=== PATIENT | male | born 1950 | race Caucasian/White ===

== ENCOUNTER 2023-04-13 22:35 | Inpatient (IN) | payer MEDICARE, OTHER, SELFPAY ==
[2023-04-13 17:58] VITALS: BP 168/107
[2023-04-13 18:20] LABS: % Basophils 0.3 % (0-2); % Eosinophils 0.1 % (0-6); % Immature Granulocytes 0.4 % (0-0.5); % Lymphocytes 8.5 % (20.5-51.1); % Neutrophils 81.7 % (42.2-75.2); Absolute Immature Granulocytes 0.1 10^3/uL (0-0.05); Absolute Lymphocytes 1.2 10^3/uL (1.2-3.4); Absolute Monocytes 1.3 10^3/uL (0.1-0.6); Absolute Neutrophils 11.7 10^3/uL (1.4-6.5); Hematocrit 38.1 % (39.0-52.0); Hemoglobin 13.6 g/dL (13.0-18.0); Mean Corp Hgb Conc. 35.7 g/dL (33.0-37.0); Mean Corpuscular Hgb 30.6 pg (27.0-31.0); Mean Corpuscular Volume 85.6 fL (80.0-94.0); Mean Platelet Volume 9.3 fL (7.4-10.4); Nucleated Red Blood Cells % 0 % (-); Platelet Count 253 10^3/uL (130-400); Red Blood Cell Count 4.45 10^6/uL (4.70-6.10); Red Cell Dist. Width 12.9 % (11.5-14.5); White Blood Cell Count 14.3 10^3/uL (4.8-10.8)
[2023-04-13 18:43] LABS: ALT (SGPT) 22 U/L (0-50); AST (SGOT) 30 U/L (17-59); Albumin 4.3 g/dl (3.5-5.0); Alkaline Phosphatase 32 U/L (38-126); Blood Urea Nitrogen 39 mg/dl (9-20); Calcium 9.8 mg/dl (8.4-10.2); Carbon Dioxide 25 mmol/L (22-30); Chloride 106 mmol/L (98-107); Glucose 172 mg/dl (70-99); Potassium 4.2 mmol/L (3.5-5.1); Sodium 137 mmol/L (135-145); Total Bilirubin 0.8 mg/dl (0.2-1.3); eGFR 28.89
[2023-04-13 19:01] LABS: Urine Albumin Negative (Neg - Trace); Urine Bilirubin Negative (Negative); Urine Character Clear (Clear); Urine Color Yellow; Urine Glucose 1+ (Negative); Urine Ketone Negative (Negative); Urine Leukocyte Negative (Negative); Urine Nitrite Negative (Negative); Urine Occult Blood Negative (Negative); Urine Urobilinogen Negative (Neg - 1+)
[2023-04-13 19:47] VITALS: BMI 30.1
--- NOTE | 2023-04-13 19:57 | ED.GENMED ---
History of Present Illness
General
Chief Complaint: Flank Pain
Source: patient
Exam Limitations: none
Time Seen by Provider: 04/13/23 19:39
Nursing documentation reviewed up to this point in time: agreed with
Travel History
Have you had any contact with someone who has COVID-19?: No
Do you have any symptoms of coronavirus? Fever > 100 degrees, chills, cough, shortness of breath, sore throat, loss of taste or smell, muscle aches, or headache?: No
History of Present Illness
History of Present Illness:
73-year-old male history of kidney stones followed by Dr. Grant never required surgery
Type II diabetic previously on diet control recently started on metformin presents with left flank pain with some chills last evening moderate intensity does go to the left lower abdomen, no documented fevers no vomiting,
No chest pain or shortness of breath
Took a Flomax helped his pain a bit
Past History
Past History
ED Past Medical History: NIDDM and Other (Renal stones)
ED Past Surgical History: Negative Urological
Social History
Tobacco: Non-smoker
Alcohol: None
Drug: None
Personal:
Living: with family
Review of Systems
Review of Systems
All Other Systems: Not applicable
Constitutional: Reports chills; Denies fever or fatigue
EENT: Reports no symptoms
Respiratory: Reports no symptoms
Cardiac: Reports no symptoms
ABD/GI: Reports abdominal pain and nausea
: Reports flank pain
Musculoskeletal: Reports no symptoms
Skin: Reports no symptoms
Neurological: Reports no symptoms
Endocrine: Reports no symptoms
Phy Exam
Physical Exam
Physical Exam:
Physical Exam
General: 73-year-old male nontoxic
Neck: No jaundice
Heart: s1/s2 regular rate and rhythm, no murmur. equal radial pulses.
Lungs: no acute respiratory distress. clear bilaterally
Abdomen: Soft tender in the left lower abdomen
Neuro: alert and oriented. no focal neurological deficits
Skin: no rash
Psychiatric: well kept. interactive and cooperative
Extremities: no edema.
Course
Orders/Labs/Results
Orders:
Orders
04/13/23 18:07
Complete Blood Count/With Diff Urgent
Comprehensive Metabolic Panel Urgent
04/13/23 18:13
Urinalysis Reflex To Culture Urgent
Date Specimen was Collected: 04/13/23
Time Specimen was Collected: 18:02
Urine Culture Urgent
VERONIKA Source: U
Specimen Description:
Date Specimen was Collected: 04/13/23
Time Specimen was Collected: 18:02
Comment: Add on bt Vineet Slade
04/13/23 19:53
CT Abd/pel Without Iv Or Oral Urgent
Comment:
Reason For Exam: arf stone
0.9% Sodium Chloride 1000 ml [Nss] 1,000 ml IV BOLUS
HYDROmorphone [Dilaudid] 0.5 mg IV NOW STA
Ondansetron Injectable [Zofran] 4 mg IV NOW STA
04/13/23 20:24
Add On - Microbiology Urgent
Tests Added?: urine culture
04/13/23 21:09
Blood Culture Q30M
VERONIKA Source: Blood/Venous
Specimen Description:
Blood Culture Q30M
VERONIKA Source: Blood/Venous
Specimen Description:
04/13/23 21:27
UROLOGY CONSULT Routine
Consulting Provider: Dayron Lima
Was physician already notified: Yes
04/13/23 22:22
Admit/Transfer Patient As Directed
Co-Sign Provider:
Level of Care: Inpatient admission
Assign to:: Medical/Surgical
Physician / Group: Tulio
Diagnosis: L Ureteral Stone, ANDER
Reason for Hospitalization: L Ureteral Stone, ANDER
Expected length of stay greater than two midnights?: Yes
ELOS- Estimated Length of Stay in days: 2
I certify the patient meets the requirements for IP care: Yes
04/13/23 22:23
Code Status As Directed
Resuscitation Status: Full Code
Abnormal Lab Results
04/13/23 04/13/23
18:07 18:13
WBC 14.3 H 10^3/uL
(4.8-10.8)
RBC 4.45 L 10^6/uL
(4.70-6.10)
Hct 38.1 L %
(39.0-52.0)
Abs Immat Gran (auto) 0.1 H 10^3/uL
(0-0.05)
Absolute Neuts (auto) 11.7 H 10^3/uL
(1.4-6.5)
Absolute Monos (auto) 1.3 H 10^3/uL
(0.1-0.6)
Neutrophils % 81.7 H %
(42.2-75.2)
Lymphocytes % 8.5 L %
(20.5-51.1)
BUN 39 H mg/dl
(9-20)
Creatinine 2.3 H mg/dL
(0.7-1.3)
Glucose 172 H mg/dl
(70-99)
Alkaline Phosphatase 32 L U/L
(38-126)
Urine Glucose 1+ A
(Negative)
04/13/23 18:07
04/13/23 18:07
Vital Signs
Initial and Last Documented VS:
Initial Vital Signs
Temp Pulse Resp BP Pulse Ox
98.9 F 105 16 168/107 95
04/13/23 17:58 04/13/23 17:58 04/13/23 17:58 04/13/23 17:58 04/13/23 17:58
Last Documented Vital Signs
Temp Pulse Resp BP Pulse Ox
98.9 F 92 10 137/78 98
04/13/23 17:58 04/13/23 21:58 04/13/23 21:58 04/13/23 21:58 04/13/23 21:58
MDM/Problems Addressed
Differential Diagnosis Includes:
Renal colic UTI muscle strain doubt AAA
MDM/Problems Addressed:
Flank pain
Chronic conditions affecting care:
Diabetes kidney stone
Acute Exacerbation and/or Progression of Chronic Illness:
Diabetes kidney stone
*Radiology
Radiology exam reviewed: preliminary read by ED provider
*Pulse Oximetry
Patient hypoxic: no
*Carburizing Furnace Operator Interpretation
Rate: normal
Interpretation: normal
Heart Rate: 78
Rhythm: sinus
*Critical Care Note
Total Time (30-74mins, 75-104mins- exclusive of procedures): 8
Data Reviewed
Review of Other/Old Records Reveals: Labs, Records and Radiology Studies
Source: patient
Update Note
Update Note:
Update urinalysis noted CAT scan report noted fluid has been ordered, patient require admission due to acute renal failure
ED Attending Note
-
Portions of this chart may have been created with voice recognition software.� Occasional wrong word or��sound alike� substitutions may have occurred due to the inherent limitations of voice recognition software.
Discharge Plan
Departure
Patient Disposition: Admit
Date of Disposition: 04/13/23
Time of Disposition: 20:36
Admit to: Med/Surg
Presentation/result/management discussed w/ accepting MD/DO: Hospitalist
Condition: Fair
Covid-19: Not Applicable
Discharge Problem:
Acute renal failure (ARF), Ureter colic
Interventions
Interventions:
*Risk Screen - Suicide Last Done: 04/13/23 17:58
*General Assessment Last Done: 04/13/23 17:58
*Neglect/Abuse Screening Last Done: 04/13/23 17:58
ED- Fall Risk Assessment Last Done: 04/13/23 19:48
*ED COVID-19 Vaccine History Last Done: 04/13/23 17:58
TZ-Oavofs-Oanbkdanea Assessment Last Done: 04/13/23 19:48
ED-Male Genitourinary Assessment Last Done: 04/13/23 19:48
[2023-04-13] MEDS: DILAUDID 0.5 MG IV (20:00)
[2023-04-13] MEDS: ZOFRAN 4 MG IV (20:00)
[2023-04-13] MEDS: NSS 1000 IV (20:01)
[2023-04-13 20:14] VITALS: BP 146/83
[2023-04-13 21:58] VITALS: BP 137/78
--- NOTE | 2023-04-13 22:26 | HPS.HSE ---
Family Physician
-
Family Physician: Eric Guerin
Chief Complaint
-
L Flank Pain
History of Present Illness
Patient is a 73y M with PMH significant for DM-II and nephrolithiasis who presents to ED complaining of L flank pain x 2-3 days. Patient states that he initially developed some L flank pain on Wednesday evening. The following morning his symptoms
were much more severe. He has had pain in the L flank with radiation into the L groin region. He notes that he did have shaking chills at home last PM. No dysuria, gross hematuria, etc. No N/V.
Patient had worsening pain this evening and presented to the ED for further evaluation.
Medical History
Past Medical History
Past Medical History: Reports Other
Additional Past Medical History:
DM-II
Nephrolithiasis
GERD
Past Surgical History: Reports Other
Additional Past Surgical History:
Hernia Repair
R Knee Arthroscopy
T&A
Cataracts
Social History
Tobacco: Former Smoker (Quit smoking 26y ago. Approx 30 pack years total.)
Alcohol: Occasional
Drug: None
Personal:
Living: With Family
Family History
Family History: Not pertinent
Allergies / Home Medications
Allergies reflects when Allergies were last updated in [employer].
Home Medications with original date entered in [employer]
Allergy/Medication List:
Allergies
Allergy/AdvReac Type Severity Reaction Status Date / Time
No Known Allergies Allergy Verified 10/12/21 14:43
Home Medications
tamsulosin 0.4 mg capsule (Flomax) 0.4 mg PO DAILY #10 caps 10/12/21
acetaminophen 325 mg tablet (Tylenol) 650 mg PO Q6HPRN PRN mild pain 04/13/23
aspirin 81 mg tablet,delayed release 81 mg PO QPM 04/13/23
fenofibrate nanocrystallized 145 mg tablet (Tricor) 145 mg PO HS 04/13/23
glucosamine sulf dipot chlr,msm,chond 550 mg-C 30 mg-edd 1 mg capsule (Glucosamine Chondroitin) 1 cap PO QPM 04/13/23
latanoprost 0.005 % eye drops 1 drp RIGHT EYE HS 04/13/23
metformin 500 mg tablet,extended release 24 hr 500 mg PO BID 04/13/23
rosuvastatin 10 mg tablet (Crestor) 10 mg PO QPM 04/13/23
Review of Systems
-
History Source: Patient
A 12 point ROS was completed and negative except as noted: Yes
Constitutional: Reports Chills; Denies Fever
Respiratory: Denies Cough or Trouble Breathing
Cardiac: Denies Chest Pain or Palpitations
Abdomen/GI: Denies Abdominal Pain, Nausea, Vomiting or Diarrhea
: Denies Dysuria or Frequency
Neurological: Denies Dizzy or Headache
Psych: Denies Depression or Anxiety
Physical Exam
Vital Signs
Vital Signs
Temp Pulse Resp BP Pulse Ox
98.9 F 92 10 137/78 98
04/13/23 17:58 04/13/23 21:58 04/13/23 21:58 04/13/23 21:58 04/13/23 21:58
Physical Exam
General: Other (73y M in no acute distress.)
HEENT: Moist mucous membranes
Respiratory: Clear; No Wheezes, Rales or Rhonchi
Cardiac: S1/S2 and Regular Rhythm; No Murmur
GI: Soft, Non Tender, Non Distended and Normal Bowel Sounds
Genito-urinary: Costovertebral angle tend (Mild L CVAT.)
Musculoskeletal: No Clubbing, No Cyanosis and No Edema
Neuro: AO x 3
Psych: No Anxious or Depressed
Laboratory Results
-
04/13/23 18:07
04/13/23 18:07
Laboratory Results
Total Bilirubin 0.8 mg/dl (0.2-1.3) 04/13/23 18:07
AST 30 U/L (17-59) 04/13/23 18:07
ALT 22 U/L (0-50) 04/13/23 18:07
Alkaline Phosphatase 32 U/L (38-126) L 04/13/23 18:07
Impression/Plan
-
A/P: Patient is a 73y M with PMH significant for DM-II and nephrolithiasis who presents to ED complaining of L flank pain and chills.
Left Ureterolithiasis
- Admit for further evaluation and treatment.
- Pain control, IVFs, etc.
- Strain urine and monitor for spontaneous passage.
- Urology evaluation.
- Continue usual tamsulosin.
- Follow for clinical improvement.
- Will cover with ceftriaxone for now given reported chills.
- Follow-up UA / culture data and discontinue abx if appropriate.
ANDER
- SCr = 2.3 compared to baseline of 1.3.
- Likely secondary to obstructing stone, decreased PO intake, etc.
- IVFs as noted above.
- Follow labs / lytes for improvement.
- May need intervention for stone removal if they do not spontaneously pass.
DM-II
- Stable. Hold PO medications.
- Follow glucose and cover with SSI as needed.
- Update A1C.
DVT Prophylaxis: SCDs
Code Status: Full
[2023-04-14] MEDS: STERILE WATER FOR INJECTION 10 ML IV (05:12)
[2023-04-14] MEDS: ROCEPHIN 1000 MG IV (05:12)
[2023-04-14] MEDS: NSS 1000 IV (05:13)
[2023-04-14] MEDS: DILAUDID 0.5 MG IV (05:21)
[2023-04-14 06:55] LABS: Hemoglobin 11.9 g/dL (13.0-18.0); Mean Corpuscular Hgb 30.6 pg (27.0-31.0); Mean Corpuscular Volume 87.4 fL (80.0-94.0); Platelet Count 222 10^3/uL (130-400); Red Blood Cell Count 3.89 10^6/uL (4.70-6.10); Red Cell Dist. Width 12.8 % (11.5-14.5); White Blood Cell Count 13.7 10^3/uL (4.8-10.8)
[2023-04-14 07:17] LABS: Blood Urea Nitrogen 39 mg/dl (9-20); Calcium 9.2 mg/dl (8.4-10.2); Carbon Dioxide 24 mmol/L (22-30); Chloride 105 mmol/L (98-107); Estimated Creatinine Clearance 28 ml/min; Glucose 182 mg/dl (70-99); Sodium 138 mmol/L (135-145); eGFR 27.45
[2023-04-14 07:42] VITALS: BP 119/92
[2023-04-14 07:55] VITALS: BP 119/92
[2023-04-14 07:58] LABS: Glucose - Point of Care 168 mg/dl (70-99)
[2023-04-14 08:00] VITALS: BP 130/103
[2023-04-14] MEDS: FLOMAX 0.400000000000000022 MG PO (09:09)
[2023-04-14 12:31] LABS: Glucose - Point of Care 143 mg/dl (70-99)
--- NOTE | 2023-04-14 13:33 | W.PN.URO.CBU ---
Today's Communication / Plan
-
op room afternoon if stones not pased npo hs tonight
Assessment / Plan
-
NON TOXIS WITH STONES 2 AND 4 MM CAUSING ander trial of passage of small stones on op e=schedule for aternoon bt hopefully stones will pass will render npo and dtrain urone pt conseted revoewed alt txs ansd pros cons u/l/s if still
pain tomorrow
Diagnosis
-
Date of Service: April 14, 2023
-
Patient Diagnosis:
2 and 4 mm diastaL LEFT STONE WITH YDRO AND ANDER CREATININE 1.7 TO 2.4 STILL COLIC AND NIDDM
Post Op Day:
Subjective
-
COLIC REQUIRING IV DIALAUDIOD 5AM
Objective
-
Vital Signs
Temp Pulse Resp BP Pulse Ox
98.2 F 82 20 119/92 95
04/14/23 07:42 04/14/23 07:42 04/14/23 07:42 04/14/23 07:42 04/14/23 07:42
Intake and Output
04/13/23 04/14/23 04/15/23
06:59 06:59 06:59
Output Total 400 / 400
Balance -400 / -400
Output:
Urine, Voided 400 / 400
Laboratory Results
04/14/23 05:33
04/14/23 05:33
Review of Systems
-
: Flank Pain
Physical Exam
-
General - well developed, well nourished, no acute distress
Chest - clear bilaterally
Abdomen - soft, non-tender, positive bowel sounds, no CVAT, no incisional pain or distention
Genitalia - normal
Rectal - normal
Skin - warm & dry with no rash
Neuro - AOx3, no motor deficits
Extremities - no clubbing, no cyanosis, no edema
Incision - clean, dry
Dressing - clean, dry, intact
Counseling
-
npo at hs fpr op room
Care Review
Data Reviewed
Discussed with: Hospitalist and Nursing
CT Scan: Image Pers Reviewed
--- NOTE | 2023-04-14 15:53 | PTCARENOTE ---
Patient passed x1 stone, also other fragments/sediment. Dr. Lima aware, okay to discharge from urology standpoint. Dr. Guerrero updated.
--- NOTE | 2023-04-14 16:13 | W.PN.HOSP.TC ---
Addendum entered and electronically signed by Alexei Guerrero MD 04/14/23 17:36:
[id number]
Original Note:
Today's Communication/Plan
-
CMP and CBC in 1-2 days with urology; f/u closely
F/u PCP within 1 week
repeat imaging as per urology outpatient
Assessment / Plan
Assessment / Plan
Physical Exam
General: Other (73y M in no acute distress.)
HEENT: Moist mucous membranes
Respiratory: Clear; No Wheezes, Rales or Rhonchi
Cardiac: S1/S2 and Regular Rhythm; No Murmur
GI: Soft, Non Tender, Non Distended and Normal Bowel Sounds
Genito-urinary: Costovertebral angle tend (Mild L CVAT.)
Musculoskeletal: No Clubbing, No Cyanosis and No Edema
Neuro: AO x 3
Psych: No Anxious or Depressed
A/P:� Patient is a 73y M with PMH significant for DM-II and nephrolithiasis who presents to ED complaining of L flank pain and chills.
Left Ureterolithiasis
�- Admit for further evaluation and treatment.
�- Pain control, IVFs, etc.
�- Patient passed 2 stones and debri
-Spoke to urology, OK to dc on their side with close bmp follow up - patient desires this as well
ANDER
�- SCr = 2.3 compared to baseline of 1.3.
�- Likely secondary to obstructing stone,
-s/p IV fluids
-Patient passed stone
-F/u BMP in 1-2 days with Urology to assess improvement - anticipate resolution now that stone passedd
Leukocytosis
-2/2 to stress with stone; no evidence of infection; UA negative, afebrile
-cbc in 1-2 days to assess for trending down
DM-II
�- Stable.� Hold PO medications.
�- Follow glucose and cover with SSI as needed.
�-Hold metformin with ANDER; can restart outpatient
DVT Prophylaxis:� SCDs
Code Status:� Full
More than 30 minutes spent in discharge including
Final examination of the patient
Summarizing hospital stay
Instructions for continuing care to all relevant caregivers
Preparation of discharge records, prescriptions, and referral forms
Total time spent (35 in minutes):
Anticipated Discharge: Today
Subjective/Interval History
-
Date of Service: April 14, 2023
passed two stones and some debri this afternoon
Objective Data
-
Labs:
Laboratory Results
04/14/23
05:33
WBC 13.7 H
Hgb 11.9 L
Hct 34.0 L
Plt Count 222
Sodium 138
Potassium 4.0
Chloride 105
Carbon Dioxide 24
BUN 39 H
Creatinine 2.4 H
Glucose 182 H
Calcium 9.2
Vital Signs:
Vital Signs
Temp Pulse Resp BP Pulse Ox
98.2 F 82 20 130/103 95
04/14/23 07:42 04/14/23 07:42 04/14/23 07:42 04/14/23 08:00 04/14/23 07:42
I&O
04/13/23 04/14/23 04/15/23
06:59 06:59 06:59
Output Total 400 / 400
Balance -400 / -400
Review of Systems
-
History Source: Patient
All other systems: Not reviewed unless documented
Data Reviewed
-
CT Scan: Image personally visualized and interpreted and Report Reviewed by me
Labs: Labs Reviewed by me
--- NOTE | 2023-04-14 16:20 | W.DS.TRANS ---
DC Summary - Ed Teacher
-
Discharge Instructions:
Discharge Diagnosis/Procedures
Left Ureterolithiasis
ANDER
Diet Low Cholesterol,Diabetic, Carb Controlled
Blood Work CBC and CMP in 1-2 days with Urology to monitor
Scr
Others Tests reimage as outpatient
Instructions:
Stand-Alone Forms:
Changes to Home Medications: Yes
Discharge Medications:
DC Medications w/original date entered in [employer]
tamsulosin 0.4 mg capsule (Flomax) 0.4 mg PO DAILY #10 caps 10/12/21
acetaminophen 325 mg tablet (Tylenol) 650 mg PO Q6HPRN PRN mild pain 04/13/23
aspirin 81 mg tablet,delayed release 81 mg PO QPM Blood Clot Prevention/Tx 04/13/23
fenofibrate nanocrystallized 145 mg tablet (Tricor) 145 mg PO HS High Cholesterol 04/13/23
glucosamine sulf dipot chlr,msm,chond 550 mg-C 30 mg-edd 1 mg capsule (Glucosamine Chondroitin) 1 cap PO QPM Supplement 04/13/23
latanoprost 0.005 % eye drops 1 drp RIGHT EYE HS Eye Condition 04/13/23
metformin 500 mg tablet,extended release 24 hr 500 mg PO BID Diabetes 04/13/23
rosuvastatin 10 mg tablet (Crestor) 10 mg PO QPM High Cholesterol 04/13/23
Home Medication Changes
hold metformin
Pending Results: No
[2023-04-14] MEDS: NSS IV (16:21)
--- NOTE | 2023-04-14 17:33 | CM ---
CM reviewed medical records. Plan for discharge to home. No needs noted.
== END 2023-04-14 16:45 | disposition home or self-care (01) | DRG 683 ==
LOC: ED 22:35
PROVIDERS: Emergency Medicine; Specialist; ADMITTING PHYSICIAN Hospitalist; ATTENDING PHYSICIAN Internal Medicine; EMERGENCY PHYSICIAN Emergency Medicine; FAMILY PHYSICIAN Family Medicine
DX: N17.9 Acute kidney failure, unspecified (principal); N20.2 Calculus of kidney with calculus of ureter; Z87.891 Personal history of nicotine dependence; E11.36 Type 2 diabetes mellitus with diabetic cataract
CPT/HCPCS: 74176; 80048; 80053; 81003; 82365; 82962; 85025; 85027; 87040; 87086; 96361; 96374; 96375; 99285

== ENCOUNTER → 2023-04-16 07:18 | Outpatient (REF) | payer MEDICARE, OTHER, SELFPAY ==
[2023-04-16 10:13] LABS: Blood Urea Nitrogen 40 mg/dl (9-20); Calcium 9.7 mg/dl (8.4-10.2); Carbon Dioxide 27 mmol/L (22-30); Chloride 102 mmol/L (98-107); Glucose 128 mg/dl (70-99); Potassium 3.9 mmol/L (3.5-5.1); Sodium 141 mmol/L (135-145); eGFR 48.25
== END ==
LOC: HWLAB 07:18
PROVIDERS: ATTENDING PHYSICIAN Surgery; FAMILY PHYSICIAN Family Medicine
DX: N20.0 Calculus of kidney (principal)
CPT/HCPCS: 36415; 80048

== ENCOUNTER → 2023-06-02 07:35 | Outpatient (REF) | payer MEDICARE, OTHER, SELFPAY ==
[2023-06-02 09:27] LABS: % Basophils 0.7 % (0-2); % Eosinophils 2.2 % (0-6); % Immature Granulocytes 0.2 % (0-0.5); % Lymphocytes 38.8 % (20.5-51.1); % Monocytes 8.6 % (1.7-9.3); % Neutrophils 49.5 % (42.2-75.2); Absolute Eosinophils 0.1 10^3/uL (0-0.7); Absolute Lymphocytes 2.3 10^3/uL (1.2-3.4); Absolute Monocytes 0.5 10^3/uL (0.1-0.6); Hematocrit 37.1 % (39.0-52.0); Hemoglobin 12.6 g/dL (13.0-18.0); Mean Corpuscular Hgb 30.1 pg (27.0-31.0); Mean Corpuscular Volume 88.8 fL (80.0-94.0); Mean Platelet Volume 9.6 fL (7.4-10.4); Nucleated Red Blood Cells % 0 % (-); Platelet Count 285 10^3/uL (130-400); Red Blood Cell Count 4.18 10^6/uL (4.70-6.10); Red Cell Dist. Width 12.9 % (11.5-14.5)
[2023-06-02 09:55] LABS: Blood Urea Nitrogen 30 mg/dl (9-20); Calcium 9.6 mg/dl (8.4-10.2); Carbon Dioxide 26 mmol/L (22-30); Chloride 103 mmol/L (98-107); Glucose 111 mg/dl (70-99); Potassium 4.1 mmol/L (3.5-5.1); Sodium 141 mmol/L (135-145); eGFR > 60.00
== END ==
LOC: HWLAB 07:35
PROVIDERS: ATTENDING PHYSICIAN Ophthalmology Retina Specialist; FAMILY PHYSICIAN Family Medicine
DX: H35.341 Macular cyst, hole, or pseudohole, right eye (principal)
CPT/HCPCS: 36415; 80048; 85025

== ENCOUNTER 2023-10-06 07:46 | Emergency (ER) | payer MEDICARE, OTHER, SELFPAY ==
[2023-10-06 07:52] VITALS: BP 195/98
[2023-10-06] MEDS: DILAUDID 0.5 MG IV (08:26)
[2023-10-06] MEDS: ZOFRAN 4 MG IV (08:26)
[2023-10-06 08:28] VITALS: BP 148/97
[2023-10-06 08:31] LABS: % Basophils 0.3 % (0-2); % Eosinophils 0.7 % (0-6); % Immature Granulocytes 0.3 % (0-0.5); % Monocytes 5.5 % (1.7-9.3); % Neutrophils 75.2 % (42.2-75.2); Absolute Eosinophils 0.1 10^3/uL (0-0.7); Absolute Lymphocytes 1.6 10^3/uL (1.2-3.4); Absolute Monocytes 0.5 10^3/uL (0.1-0.6); Absolute Neutrophils 6.8 10^3/uL (1.4-6.5); Hematocrit 38.3 % (39.0-52.0); Hemoglobin 13.1 g/dL (13.0-18.0); Mean Corp Hgb Conc. 34.2 g/dL (33.0-37.0); Mean Corpuscular Hgb 30.3 pg (27.0-31.0); Mean Corpuscular Volume 88.7 fL (80.0-94.0); Mean Platelet Volume 9.8 fL (7.4-10.4); Nucleated Red Blood Cells % 0 % (-); Platelet Count 240 10^3/uL (130-400); Red Blood Cell Count 4.32 10^6/uL (4.70-6.10); Red Cell Dist. Width 12.6 % (11.5-14.5); White Blood Cell Count 9.1 10^3/uL (4.8-10.8)
[2023-10-06] MEDS: NSS 500 IV (08:31)
--- NOTE | 2023-10-06 08:37 | ED.GENMED ---
History of Present Illness
General
Chief Complaint: Abdominal Symptoms
Source: patient and spouse
Exam Limitations: none
Time Seen by Provider: 10/06/23 08:06
Nursing documentation reviewed up to this point in time: agreed with
History of Present Illness
History of Present Illness:
Patient presents to ED secondary to sudden onset of abdominal pain, which woke the patient up from sleep this morning around 4:30 AM. Patient initially attributed his pain to hunger and proceeded to have bananas and shepherds pie, with worsening
symptoms, preceded by multiple vomiting episodes. Patient also reports small bowel movement afterwards, which partially alleviated symptoms. Since then, pain has been consistent with mild abdominal distention, as well as nausea sensation.
Abdominal pain described as crampy, diffuse, without alleviating or exacerbating factors. Denies previous history of similar symptoms. Patient had same dinner as his consisting of pork and was without any symptoms when he went to sleep
initially. Patient has had history of kidney stones, but states that his symptoms are completely different. Denies previous history of abdominal surgery. Patient has received multiple normal colonoscopy, including 2 years ago. Denies recent
change in medications or diet. Denies recent travel. Denies sick contact.
Past History
Past History
ED Past Medical History: NIDDM and Other (Renal stones)
ED Past Surgical History: Negative Urological
Social History
Tobacco: Non-smoker
Alcohol: None
Drug: None
Personal:
Living: with family
Review of Systems
Review of Systems
Allergies reviewed?: Yes
Constitutional: Reports no symptoms
EENT: Reports no symptoms
Respiratory: Reports no symptoms
Cardiac: Reports no symptoms
ABD/GI: Reports abdominal pain, nausea, vomiting and other (Abdominal distention); Denies diarrhea
: Reports no symptoms
Musculoskeletal: Reports no symptoms
Skin: Reports no symptoms
Neurological: Reports no symptoms
Phy Exam
Physical Exam
Physical Exam:
Physical Exam
General: mild painful distress, not acutely ill. afebrile
Head: nc/at. eomi
Neck: supple. no meningeal signs. normal posterior pharynx
Heart: s1/s2 regular rate and rhythm, no murmur. equal radial pulses.
Lungs: no acute respiratory distress. clear bilaterally
Abdomen: normal bowel sounds. mild diffuse tenderness with mild distention. no guarding/rebound.
Neuro: alert and oriented. no focal neurological deficits
Skin: no rash
Psychiatric: well kept. interactive and cooperative
Extremities: no edema. no calf tenderness.
Course
Orders/Labs/Results
Orders:
Orders
10/06/23 08:12
HYDROmorphone [Dilaudid] 0.5 mg IV NOW STA
Ondansetron Injectable [Zofran] 4 mg IV NOW STA
10/06/23 08:13
0.9% Sodium Chloride 500 ml [Nss] 500 ml IV BOLUS
CR Obstruct Series W/pa Chest Urgent
Comment:
Reason For Exam: abdominal pain w distention
US Abdomen Complete/Upper Urgent
Comment:
Reason For Exam: upper abdominal pain
10/06/23 08:16
Complete Blood Count/With Diff Urgent
Comprehensive Metabolic Panel Urgent
Lipase Urgent
10/06/23 08:36
Lactate Level [Lactic Acid] Urgent
10/06/23 10:20
Urinalysis Reflex To Culture Urgent
Date Specimen was Collected: 10/06/23
Time Specimen was Collected: 10:19
Abnormal Lab Results
10/06/23
08:16
RBC 4.32 L 10^6/uL
(4.70-6.10)
Hct 38.3 L %
(39.0-52.0)
Absolute Neuts (auto) 6.8 H 10^3/uL
(1.4-6.5)
Lymphocytes % 18.0 L %
(20.5-51.1)
BUN 33 H mg/dl
(9-20)
Glucose 161 H mg/dl
(70-99)
AST 60 H U/L
(17-59)
10/06/23 08:16
10/06/23 08:16
Vital Signs
Initial and Last Documented VS:
Initial Vital Signs
Temp Pulse Resp BP Pulse Ox
98.0 F 60 16 195/98 98
10/06/23 07:52 10/06/23 07:52 10/06/23 07:52 10/06/23 07:52 10/06/23 07:52
Last Documented Vital Signs
Temp Pulse Resp BP Pulse Ox
98.0 F 61 16 128/73 96
10/06/23 07:52 10/06/23 11:15 10/06/23 07:52 10/06/23 11:00 10/06/23 11:15
MDM/Problems Addressed
MDM/Problems Addressed:
Patient reports complete resolution of symptoms after treatment. Repeat abdominal exam: Soft and nontender. Otherwise patient remains afebrile, hemodynamically stable, and nontoxic-appearing.
Patient with an unremarkable workup, although ultrasound abdomen does show gallbladder sludge with gallstones, without any evidence of cholecystitis. As such, patient will be advised to start taking PPI along with low-fat diet, as well as follow-up
with his GI physician. Advised to return to ED with worsening symptoms, i.e. fever/worsening pain/vomiting. Patient expressed understanding at time of discharge, to the care of of his .
*Critical Care Note
Total Time (30-74mins, 75-104mins- exclusive of procedures): Not Applicable
ED Attending Note
-
Portions of this chart may have been created with voice recognition software.� Occasional wrong word or��sound alike� substitutions may have occurred due to the inherent limitations of voice recognition software.
Discharge Plan
Departure
Patient Disposition: Home (Routine Discharge)
Date of Disposition: 10/06/23
Time of Disposition: 11:30
Patient with high blood pressure during this ER visit?: Yes
Condition: Good
Discharge Problem:
Abdominal pain
Instructions: Daniels Diet, Low-fat diet, Abdominal Pain
Prescriptions:
No Action
tamsulosin [Flomax] 0.4 mg capsule
0.4 mg PO DAILY Qty: 10 0RF
latanoprost 0.005 % Drops
1 drp RIGHT EYE HS
acetaminophen [Tylenol] 325 mg Tablet
650 mg PO Q6HPRN PRN (Reason: mild pain)
aspirin 81 mg Tablet,Delayed Release (Dr/Ec)
81 mg PO QPM
metformin 500 mg Tablet Extended Release 24 Hr
500 mg PO BID
rosuvastatin [Crestor] 10 mg Tablet
10 mg PO QPM
fenofibrate nanocrystallized [Tricor] 145 mg Tablet
145 mg PO HS
Glucosamine Chondroitin 550-30-1 mg Capsule
1 cap PO QPM
Referrals:
Eric Guerin MD [Family Provider] -
Activity Restrictions/Additional Instructions:
As discussed, please follow-up with your primary care physician and/or GI physician for further evaluation and treatment. Please return to ED with worsening symptoms, i.e. fever/worsening pain/vomiting.
Interventions
Interventions:
*Nursing Disposition Last Done: 10/06/23 12:07
Discharge Date and Time
Discharge Date/Time: 10/06/23 12:08
Print Language: GRENADIAN
[2023-10-06 08:54] LABS: ALT (SGPT) 28 U/L (0-50); AST (SGOT) 60 U/L (17-59); Albumin 4.5 g/dl (3.5-5.0); Alkaline Phosphatase 69 U/L (38-126); Blood Urea Nitrogen 33 mg/dl (9-20); Calcium 9.9 mg/dl (8.4-10.2); Carbon Dioxide 24 mmol/L (22-30); Chloride 107 mmol/L (98-107); Glucose 161 mg/dl (70-99); Lipase 280 U/L (23-300); Potassium 4.2 mmol/L (3.5-5.1); Sodium 141 mmol/L (135-145); Total Bilirubin 0.6 mg/dl (0.2-1.3); eGFR 57.29
[2023-10-06 09:00] VITALS: BP 159/85
[2023-10-06 09:43] LABS: Lactic Acid 1.7 mmol/L (0.7-2.0)
[2023-10-06 10:51] LABS: Urine Albumin Negative (Neg - Trace); Urine Bilirubin Negative (Negative); Urine Character Clear (Clear); Urine Color Yellow; Urine Glucose Negative (Negative); Urine Ketone Negative (Negative); Urine Leukocyte Negative (Negative); Urine Nitrite Negative (Negative); Urine Occult Blood Negative (Negative); Urine Specific Gravity 1.025 (<1.030); Urine Urobilinogen Negative (Neg - 1+)
[2023-10-06 11:00] VITALS: BP 128/73
== END 2023-10-06 12:08 | disposition home or self-care (01) ==
LOC: EMR 07:46
PROVIDERS: EMERGENCY PHYSICIAN Emergency Medicine; FAMILY PHYSICIAN Family Medicine
DX: R10.9 Unspecified abdominal pain (principal); R11.2 Nausea with vomiting, unspecified; E11.9 Type 2 diabetes mellitus without complications; Z87.442 Personal history of urinary calculi
CPT/HCPCS: 99284; 96374; 96375; 96361; 74022; 76700; 80053; 81003; 83605; 83690; 85025

== ENCOUNTER → 2023-10-22 13:00 | Outpatient (REF) | payer MEDICARE, OTHER, SELFPAY | LOC: HWRAD 13:00 | PROVIDERS: ATTENDING PHYSICIAN Surgery; FAMILY PHYSICIAN Family Medicine | DX: N20.2 Calculus of kidney with calculus of ureter (principal) | CPT/HCPCS: 74018 ==

== ENCOUNTER 2023-11-06 06:32 | Inpatient (IN) | payer MEDICARE, OTHER, SELFPAY ==
[2023-11-06] VITALS (23 sets, daily range): BP systolic 108–182; BP diastolic 56–103; BMI 32.3
[2023-11-06 00:28] LABS: % Basophils 0.7 % (0-2); % Eosinophils 2.6 % (0-6); % Immature Granulocytes 1.1 % (0-0.5); % Lymphocytes 40.8 % (20.5-51.1); % Monocytes 9.5 % (1.7-9.3); % Neutrophils 45.3 % (42.2-75.2); Absolute Basophils 0.1 10^3/uL (0-0.2); Absolute Eosinophils 0.2 10^3/uL (0-0.7); Absolute Immature Granulocytes 0.1 10^3/uL (0-0.05); Absolute Lymphocytes 3.4 10^3/uL (1.2-3.4); Absolute Monocytes 0.8 10^3/uL (0.1-0.6); Absolute Neutrophils 3.7 10^3/uL (1.4-6.5); Hematocrit 37.7 % (39.0-52.0); Hemoglobin 13.2 g/dL (13.0-18.0); Mean Corpuscular Hgb 31.2 pg (27.0-31.0); Mean Corpuscular Volume 89.1 fL (80.0-94.0); Mean Platelet Volume 9.3 fL (7.4-10.4); Nucleated Red Blood Cells % 0 % (-); Platelet Count 250 10^3/uL (130-400); Red Blood Cell Count 4.23 10^6/uL (4.70-6.10); Red Cell Dist. Width 12.7 % (11.5-14.5); White Blood Cell Count 8.2 10^3/uL (4.8-10.8)
[2023-11-06 00:38] LABS: ALT (SGPT) 25 U/L (0-50); AST (SGOT) 36 U/L (17-59); Albumin 4.6 g/dl (3.5-5.0); Alkaline Phosphatase 65 U/L (38-126); Blood Urea Nitrogen 35 mg/dl (9-20); Calcium 10.5 mg/dl (8.4-10.2); Carbon Dioxide 28 mmol/L (22-30); Chloride 104 mmol/L (98-107); Glucose 120 mg/dl (70-99); Lipase 373 U/L (23-300); Potassium 4.6 mmol/L (3.5-5.1); Sodium 142 mmol/L (135-145); Total Bilirubin 0.3 mg/dl (0.2-1.3); Total Protein 7.1 g/dl (6.3-8.2); eGFR 52.41
[2023-11-06] MEDS: ZOFRAN 4 MG IV (02:36)
[2023-11-06] MEDS: DILAUDID 0.5 MG IV ×3 (02:37→09:37)
[2023-11-06] MEDS: NSS 1000 IV ×3 (02:39→17:01)
--- NOTE | 2023-11-06 02:42 | ED.GENMED ---
History of Present Illness
General
Chief Complaint: Abdominal Pain
Source: patient, previous radiology exam (CT abdomen pelvis March 2023, abdominal ultrasound October 06, 2023. KUB film October 22, 2023.) and previous hospital records (ED visit for very similar abdominal pain October 06, 2023.)
Exam Limitations: none
Time Seen by Provider: 11/06/23 02:25
Nursing documentation reviewed up to this point in time: agreed with
History of Present Illness
History of Present Illness:
This is a 73-year-old gentleman who presents to the ED with complaints of somewhat abrupt onset of generalized epigastric to mid abdominal pain that began around 8:30 PM tonight, shortly after consuming nuts. Pain has been persistent, moderate to
severe nature, nonradiating. No aggravating or relieving factors. He admits to moderate abdominal distention, feeling bloated initially which has improved. No nausea nor vomiting, no diarrhea or constipation. No fever nor chills. No chest pain
nor back pain. No flank pain. No dysuria and urgency and or hematuria.
He admits to very similar pain that woke him from sleep 1 month ago and was evaluated in this ED on that day October 06, 2023. Obstruction series was unremarkable. Labs were unremarkable. Abdominal ultrasound showed gallbladder sludge but no
evidence of cholecystitis. He was pain-free after an IV dose of Dilaudid and discharged home and has been pain-free and comfortable until tonight.
He has history of kidney stones with previous hospitalization March of this year while passing a left ureteric stone accompanied with acute kidney injury. He had no recurrent renal colic since then and underwent an outpatient abdominal x-ray
October 21 for routine follow-up for urology which showed questionable small stones overlying bilateral renal shadows as well as calcified gallstones.
Past History
Past History
ED Past Medical History: Hypercholesterolemia, NIDDM and Other (Renal stones)
ED Past Surgical History: Orthopedic, Tonsilectomy and Other (Hernia repair 1969); Negative Urological
Social History
Tobacco: Non-smoker
Alcohol: None
Drug: None
Personal:
Living: with family
Employment: Retired
Family History
Family History: Other (Noncontributory)
Phy Exam
Physical Exam
Physical Exam:
GENERAL: 73-year-old gentleman appears his stated age, awake and alert, appears in moderate distress related to pain. is accompanying.
EYE: anicteric
NECK: Supple, nontender, no meningismus, no significant adenopathy.
ENT: oral mucosa is moist. No rhinorrhea.
CARDIAC: Regular rate and rhythm. no murmur.
LUNGS: Clear breath sounds bilaterally, no acute respiratory distress, no wheezes/rales/rhonchi
ABDOMEN: Soft, nondistended, mild to moderate tenderness epigastric region as well as mild tenderness periumbilical, no r/g, no cvat. normoactive BS.
NEUROLOGICAL: Alert and oriented x3, no focal neuro deficits.
SKIN: Warm and dry, normal color, skin intact. No rash.
MUSCULOSKELETAL: No C/C/E. peripheral pulses are full and equal b/l. No palpable tenderness.
PSYCH: Normal and appropriate interaction.
Course
Orders/Labs/Results
Orders:
Orders
11/06/23 00:09
Complete Blood Count/With Diff Urgent
Comprehensive Metabolic Panel Urgent
Lipase Urgent
11/06/23 02:30
0.9% Sodium Chloride 1000 ml [Nss] 1,000 ml IV BOLUS
HYDROmorphone [Dilaudid] 0.5 mg IV NOW STA
Ondansetron Injectable [Zofran] 4 mg IV NOW STA
11/06/23 02:37
Electrocardiogram (*1) Urgent
Reason for Study: Abdominal Pain
EKG- Treatment ONCE
11/06/23 02:43
Lactic Acid Urgent
11/06/23 02:54
CT Abd/pelvis W Iv Cont Urgent
Comment:
Reason For Exam: severe gen upper to mid abd pain, lipase 373
11/06/23 03:20
HYDROmorphone [Dilaudid] 0.5 mg IV NOW STA
11/06/23 05:53
Piperacillin/Tazo 3.375 Gram [Zosyn] 3.375 gram in 50 ml IV NOW
Abnormal Lab Results
11/06/23
00:09
RBC 4.23 L 10^6/uL
(4.70-6.10)
Hct 37.7 L %
(39.0-52.0)
MCH 31.2 H pg
(27.0-31.0)
Abs Immat Gran (auto) 0.1 H 10^3/uL
(0-0.05)
Absolute Monos (auto) 0.8 H 10^3/uL
(0.1-0.6)
Immature Gran % 1.1 H %
(0-0.5)
Monocytes % 9.5 H %
(1.7-9.3)
BUN 35 H mg/dl
(9-20)
Creatinine 1.4 H mg/dL
(0.7-1.3)
Glucose 120 H mg/dl
(70-99)
Calcium 10.5 H mg/dl
(8.4-10.2)
Lipase 373 H U/L
(23-300)
11/06/23 00:09
11/06/23 00:09
Vital Signs
Initial and Last Documented VS:
Initial Vital Signs
Temp Pulse Resp BP Pulse Ox
97.7 F 57 16 182/100 99
11/06/23 00:06 11/06/23 00:06 11/06/23 00:06 11/06/23 00:06 11/06/23 00:06
Last Documented Vital Signs
Temp Pulse Resp BP Pulse Ox
98.1 F 67 18 137/81 99
11/06/23 04:02 11/06/23 05:45 11/06/23 05:45 11/06/23 05:08 11/06/23 00:06
MDM/Problems Addressed
Differential Diagnosis Includes:
Concern for acute biliary colic/cholecystitis, pancreatitis, small bowel obstruction, ischemic bowel, ACS is much less likely. Current symptoms are not consistent with renal colic.
Will medicate for pain, nausea initiate IV fluids.
Labs thus far remarkable only for mildly elevated lipase of 373. Mildly elevated creatinine of 1.4�baseline of 1.2-1.3.
BUN of 35, near patient's baseline.
Will check lactic acid and plan for CT abdomen pelvis with IV contrast after IV fluid hydration.
Chronic conditions affecting care: DM and Other (Known gallstones)
*Radiology
Radiology exam reviewed: radiology read reviewed
*Pulse Oximetry
Patient hypoxic: no
*EKG
Interpreted by ED Provider?: Yes
Comparison EKG: no changes (Unchanged from previous March 2013)
Rate: normal
Rhythm: sinus
[place]: normal axis
Interval: normal interval
QRS Pattern: low voltage
Ischemia: no ischemia
*Flooring Grader Interpretation
Rate: normal
Interpretation: normal
Rhythm: sinus
*Critical Care Note
Total Time (30-74mins, 75-104mins- exclusive of procedures): Not Applicable
Update Note
Update Note:
Patient is much more comfortable after 2 doses of IV Dilaudid but continues with mild to moderate generalized upper abdominal pain primarily epigastric mildly right upper quadrant.
CAT scan shows a calcified gallstone wedged in the neck of a distended gallbladder, suspicious for cholecystitis. Polycystic kidneys without obstructing stone. Normal appendix. No bowel obstruction or diverticulitis.
Concern for acute cholecystitis. With mildly elevated lipase, concern for gallstone pancreatitis.
Will initiate IV antibiotics, continue n.p.o. status, admit to hospitalist service, consider general surgery consult.
ED Attending Note
-
Portions of this chart may have been created with voice recognition software.� Occasional wrong word or��sound alike� substitutions may have occurred due to the inherent limitations of voice recognition software.
Discharge Plan
Departure
Patient Disposition: Admit
Date of Disposition: 11/06/23
Time of Disposition: 05:58
Admit to: Med/Surg
Admit to doctor: Duncan
Presentation/result/management discussed w/ accepting MD/DO: Hospitalist
Discharge Problem:
Gall stone pancreatitis, Acute calculous cholecystitis
Prescriptions:
No Action
tamsulosin [Flomax] 0.4 mg capsule
0.4 mg PO DAILY Qty: 10 0RF
latanoprost 0.005 % Drops
1 drp RIGHT EYE HS
acetaminophen [Tylenol] 325 mg Tablet
650 mg PO Q6HPRN PRN (Reason: mild pain)
aspirin 81 mg Tablet,Delayed Release (Dr/Ec)
81 mg PO QPM
metformin 500 mg Tablet Extended Release 24 Hr
500 mg PO BID
rosuvastatin [Crestor] 10 mg Tablet
10 mg PO QPM
fenofibrate nanocrystallized [Tricor] 145 mg Tablet
145 mg PO HS
Glucosamine Chondroitin 550-30-1 mg Capsule
1 cap PO QPM
Referrals:
Eric Guerin MD [Family Provider] -
Interventions
Interventions:
*Risk Screen - Suicide Last Done: 11/06/23 00:06
*General Assessment Last Done: 11/06/23 01:46
*Neglect/Abuse Screening Last Done: 11/06/23 00:06
*ED COVID-19 Vaccine History Last Done: 11/06/23 01:49
LE-Urgtir-Yluvmsowpd Assessment Last Done: 11/06/23 01:45
Discharge Date and Time
Print Language: PERSIAN
[2023-11-06 03:12] LABS: Lactic Acid 1.6 mmol/L (0.7-2.0)
[2023-11-06] MEDS: ZOSYN 50 IV ×2 (05:59→17:01)
--- NOTE | 2023-11-06 06:28 | HPS.HSE ---
Family Physician
-
Family Physician: Eric Guerin
Chief Complaint
-
Abd Pain
History of Present Illness
Patient is a 73y M with PMH significant for DM-II who presents to ED complaining of abdominal pain. Patient states that he developed mid abdominal pain around 9:30 this evening. His pain persisted and increased in intensity throughout the
evening. He ultimately presented to the ED for further evaluation. Patient denies any radiation of the pain to the chest, back or lower abdomen. He denies any N/V/D. No fevers / chills.
Patient reports similar episode earlier in the month. He was seen here in the ED and his symptoms resolved after IV pain medication. Work-up at that time proved essentially unremarkable ad patient was discharged to home.
He has not had interim / recurrent symptoms until this evening.
Medical History
Past Medical History
Past Medical History: Reports Other
Additional Past Medical History:
DM-II
CKD III
Nephrolithiasis
GERD
Glaucoma
Past Surgical History: Reports Other
Additional Past Surgical History:
Hernia Repair
R Knee Arthroscopy
T&A
Cataracts
Eye Surgeries
Social History
Tobacco: Former Smoker (Quit smoking 26y ago. Approx 30 pack years total.)
Alcohol: Occasional
Drug: None
Personal:
Living: With Family
Family History
Family History: Other (Mother: Colon Cancer)
Allergies / Home Medications
Allergies reflects when Allergies were last updated in [employer].
Home Medications with original date entered in [facility]
Allergy/Medication List:
Allergies
Allergy/AdvReac Type Severity Reaction Status Date / Time
No Known Allergies Allergy Verified 11/06/23 00:06
Home Medications
aspirin 81 mg tablet,delayed release 81 mg PO QPM Blood Clot Prevention/Tx 04/13/23
fenofibrate nanocrystallized 145 mg tablet (Tricor) 145 mg PO HS High Cholesterol 04/13/23
glucosamine sulf dipot chlr,msm,chond 550 mg-C 30 mg-edd 1 mg capsule (Glucosamine Chondroitin) 1 cap PO QPM Supplement 04/13/23
latanoprost 0.005 % eye drops 1 drp RIGHT EYE HS Eye Condition 04/13/23
metformin 500 mg tablet,extended release 24 hr 500 mg PO BID Diabetes 04/13/23
rosuvastatin 10 mg tablet (Crestor) 10 mg PO QPM High Cholesterol 04/13/23
Review of Systems
-
History Source: Patient
A 12 point ROS was completed and negative except as noted: Yes
Constitutional: Denies Fever or Chills
EENT: Denies Sore Throat
Respiratory: Denies Cough or Trouble Breathing
Cardiac: Denies Chest Pain or Palpitations
Abdomen/GI: Reports Abdominal Pain; Denies Nausea, Vomiting, Diarrhea, Bloody Stools or Black Stools
: Denies Dysuria, Frequency or Flank Pain
Musculoskeletal: Denies Joint Pain or Edema
Neurological: Denies Dizzy or Headache
Psych: Denies Depression or Anxiety
Physical Exam
Vital Signs
Vital Signs
Temp Pulse Resp BP Pulse Ox
98.3 F 71 28 151/82 99
11/06/23 06:00 11/06/23 06:00 11/06/23 06:00 11/06/23 06:00 11/06/23 00:06
Physical Exam
General: Other (73y M in no acute distress)
HEENT: Moist mucous membranes and PERRLA
Respiratory: Other (Few bibasilar rales. No wheeze / rhonchi.)
Cardiac: S1/S2 and Regular Rhythm; No Murmur
GI: Soft, Non Distended, Normal Bowel Sounds and Other (Mild epogastric tenderness at present. No rebound / guarding. Pos BS.)
Musculoskeletal: No Clubbing, No Cyanosis and No Edema
Neuro: AO x 3
Laboratory Results
-
11/06/23 00:09
11/06/23 00:09
Laboratory Results
Lactic Acid 1.6 mmol/L (0.7-2.0) 11/06/23 02:43
Total Bilirubin 0.3 mg/dl (0.2-1.3) 11/06/23 00:09
AST 36 U/L (17-59) 11/06/23 00:09
ALT 25 U/L (0-50) 11/06/23 00:09
Alkaline Phosphatase 65 U/L (38-126) 11/06/23 00:09
Lipase 373 U/L (23-300) H 11/06/23 00:09
Impression/Plan
-
A/P: Patient is a 73y M with PMH significant for DM-II who presents to ED complaining of abdominal pain.
Acute Calculous Cholecystitis
- Admit for further evaluation and treatment.
- Patient with acute onset of pain and CT showing stone in the GB neck with gallbladder distention and wall thickening.
- Afebrile and non-toxic appearing.
- IV abx with Zosyn for now.
- NPO, IVFs and supportive care with pain control / antiemetics, etc.
- Surgery evaluation for possible cholecystectomy.
- Follow for any new / worsening symptoms.
DM-II
- Stable. Hold PO medications acutely.
- Follow glucose and cover with SSI as needed.
- Update A1C.
CKD III
- Stable. Renal function is at / near known baseline.
- Follow for any changes.
Glaucoma
- Stable. Continue latanoprost.
DVT Prophylaxis: SCDs
Code Status: Full
--- NOTE | 2023-11-06 09:44 | W.PN.HOSP.TC ---
Today's Communication/Plan
-
Plan for laparoscopic cholecystectomy
Continue IV Zosyn in the interim
As needed analgesia and antiemetics
Assessment / Plan
Assessment / Plan
#Acute calculus cholecystitis
-CT A/P yesterday showed cholelithiasis within the gallbladder neck, with distention and wall thickening
-Remains afebrile and nontoxic-appearing, no jaundice or signs of biliary obstruction; minimal pain as of now
-Currently on IV Zosyn empirically; n.p.o. with supportive IVF pending surgical procedure
-Currently on supportive care with opioid analgesia as needed and antiemetics as needed
-Will continue IV antibiotics pending laparoscopic cholecystectomy with surgical team today
#Type 2 diabetes mellitus
-Last A1c was 7%, Home meds include metformin twice daily
-Oral meds held on admission, was transitioned to sliding scale insulin with Accu-Chek
-Blood glucose goal 160-200
#CKD stage III
-Unclear cause, may be related to diabetes
-No association with anemia, acidemia, bone mineral disease
-Baseline creatinine is near 1.2-1.4, currently at baseline
#Glaucoma
-Stable on home latanoprost
DVT Prophylaxis: SCDs
Diet: N.p.o. pending surgery
Code Status: Full
Anticipated Discharge: Within 24 hours
Subjective/Interval History
-
Date of Service: November 06, 2023
Seen and examined at the bedside in the ED. No acute events reported since admission. He is frustrated that he is still in the emergency department, states that he feels 'neglected' as he is still waiting for his pain medications.
He denies any fevers or chills, chest pain, shortness of breath, current nausea/vomiting/diarrhea, urinary issues, abnormal bleeding or bruising, weakness or paresthesias. He has minimal abdominal pain at present.
He stated that surgery was in the room just prior to my assessment. Plan for OR today for lap jhon
Objective Data
-
Labs:
Laboratory Results
11/06/23
00:09
WBC 8.2
Hgb 13.2
Hct 37.7 L
Plt Count 250
Sodium 142
Potassium 4.6
Chloride 104
Carbon Dioxide 28
BUN 35 H
Creatinine 1.4 H
Glucose 120 H
Calcium 10.5 H
Total Bilirubin 0.3
AST 36
ALT 25
Alkaline Phosphatase 65
Vital Signs:
Vital Signs
Temp Pulse Resp BP Pulse Ox
98.4 F 66 18 140/81 98
11/06/23 07:40 11/06/23 07:40 11/06/23 07:40 11/06/23 07:40 11/06/23 07:40
I&O
11/05/23 11/06/23 11/07/23
06:59 06:59 06:59
Intake Total 1000 / 1000
Balance 1000 / 1000
Review of Systems
-
History Source: Patient
All other systems: Reviewed and negative
Physical Exam
-
General: No Apparent Distress and Comfortable
HEENT: Normocephalic, Atraumatic, Moist Mucous Membranes and Anicteric
Respiratory: Clear to Auscultation and Non Labored Respirations
Cardiac: Regular Rhythm and S1/S2; Negative Murmur, Rub or Gallop
GI: Soft, Nondistended, Normal Bowel Sounds, Tender (Mild to RUQ palpation, no peritoneal) and No Hepatosplenomegaly
Musculoskeletal: No Clubbing, No Cyanosis and No Edema
Skin: Warm and Dry; Negative Rash or Jaundice
Neuro: AO x 3, Nonfocal/Grossly Intact and Central Nerve's Intact
Data Reviewed
-
CT Scan: Report Reviewed by me and Discussed with Patient
Labs: Labs Reviewed by me and Discussed with Patient
--- NOTE | 2023-11-06 10:52 | W.SUR.PREOP ---
Pre-Operative Surgical Note
-
I have examined this patient prior to the performance of the scheduled procedure.
The patient's condition is unchanged from the time of the current History and
Physical and the patient is able to undergo the scheduled procedure.
--- NOTE | 2023-11-06 11:25 | EDRN ---
Patient taken to OR on stretcher with NSS infusing by studio technician video operator. Report given to MEETA Wells.
--- NOTE | 2023-11-06 11:30 | CON.GS ---
Addendum entered and electronically signed by Andre Barnes MD 11/06/23 11:51:
I saw and examined the patient independently.
The Bobbin Disker's note was reviewed and I agree with the note, assessment and plan except where noted below.
Comment: This is a 73-year-old male with a history of diabetes who presents with a 1 day history of right upper quadrant pain in the setting of a similar attack about a month ago. He is tender to palpation in the right upper quadrant, ultrasound
and CT imaging concerning for acute cholecystitis.
Will plan for a laparoscopic cholecystectomy with cholangiogram in the OR today.
N.p.o., IV fluids, IV antibiotics ordered.
Risks/Benefits/Alternatives, expected postoperative course and possible complications (bleeding, infection, injury to surrounding structures, acute/chronic pain) discussed at length. Patient wishes to proceed with surgery. All questions answered.
Consent obtained.
I spent roughly 60 minutes in total for the care of this patient today including direct patient care and counseling, reviewing labs, imaging, coordination of care, as well as documentation.
Original Note:
Medical History
-
Chief Complaint: RUQ pain
History of Present Illness:
Mr. Pollock is a 73 yo male with a h/o DM-2 who presents with RUQ pain which began around 9:30pm and was quite severe. His pain persisted through the night causing him to present for evaluation through the ED. On exam, pain is improved s/p
analgesics but still present. He denies nausea and vomiting. He denies fevers or chills. He notes he has never had pain like this in the past.
Past Medical History
Past Medical History: GERD, NIDDM, Renal Failure (ckd-3) and Other (nephrolithiasis, glaucoma)
Past Surgical History: Hernia Repair, Orthopedic (right knee arthoscopy), Tonsilectomy and Other (cataracts)
Social History
Tobacco: Former Smoker
Alcohol: Occasional
Personal:
Family History
Family History: Cancer (mother with colon ca)
Allergies / Home Medications
Allergy/AdvReac Type Severity Reaction Status Date / Time
No Known Allergies Allergy Verified 11/06/23 00:06
�Medication �Instructions �Recorded �Confirmed �Type
aspirin 81 mg tablet,delayed 81 mg PO QPM Blood Clot 04/13/23 11/06/23 History
release Prevention/Tx
fenofibrate nanocrystallized 145 145 mg PO HS High Cholesterol 04/13/23 11/06/23 History
mg tablet (Tricor)
glucosamine sulf dipot 1 cap PO QPM Supplement 04/13/23 11/06/23 History
chlr,msm,chond 550 mg-C 30 mg-edd
1 mg capsule (Glucosamine
Chondroitin)
latanoprost 0.005 % eye drops 1 drp RIGHT EYE HS Eye Condition 04/13/23 11/06/23 History
metformin 500 mg tablet,extended 500 mg PO BID Diabetes 04/13/23 11/06/23 History
release 24 hr
rosuvastatin 10 mg tablet (Crestor) 10 mg PO QPM High Cholesterol 04/13/23 11/06/23 History
Review of Systems
-
History Source: Patient
All other systems: Negative unless noted
A 10 point review of systems was completed, and was negative except as per HPI.
Physical Exam
Vital Signs
Temp Pulse Resp BP Pulse Ox
98.4 F 64 16 134/73 98
11/06/23 07:40 11/06/23 11:27 11/06/23 11:27 11/06/23 11:27 11/06/23 11:27
11/05/23 11/06/23 11/07/23
06:59 06:59 06:59
Actual Weight 99.1 kg
Body Mass Index (BMI) 32.3
Lab Results
11/06/23 00:09
11/06/23 00:09
WBC 8.2 10^3/uL (4.8-10.8) 11/06/23 00:09
Hgb 13.2 g/dL (13.0-18.0) 11/06/23 00:09
Hct 37.7 % (39.0-52.0) L 11/06/23 00:09
Plt Count 250 10^3/uL (130-400) 11/06/23 00:09
Abs Immat Gran (auto) 0.1 10^3/uL (0-0.05) H 11/06/23 00:09
Neutrophils % 45.3 % (42.2-75.2) 11/06/23 00:09
Physical Exam
General: Well Developed and Well Nourished
HEENT: Moist Mucous Membranes
Respiratory: Non Labored Respirations
GI: Soft, Non Distended and Tender (mild to RUQ)
Skin: Warm and Dry
Neuro: Awake, Alert and AO x 3
Psych: Calm
Data Reviewed
-
CT Scan: Image Personally Visualized and interpreted, Report Reviewed by me, Discussed with Physician and Discussed with Patient
Labs: Labs Reviewed by me, Discussed with Physician and Discussed with Patient
Old Records: Reviewed
Assessment / Plan
-
73 yo male with a h/o DM and CKD who presents with RUQ pain since last night. CT imaging with stone in the GB neck and some gallbladder distention concerning for early acute calculous cholecystitis. He is afebrile with stable vital signs and no
leukocytosis or LFT abnormalities, lipase is mildly elevated.
--NPO for OR later today for laparoscopic cholecystectomy
--SCD's for VTE ppx
--C/W IV zosyn
--Analgesics/Antiemetics prn
--IVF while NPO
--Medical management as per hospitalist service
[2023-11-06 11:33] LABS: Glucose - Point of Care 109 mg/dl (70-99)
--- NOTE | 2023-11-06 14:38 | W.IMMPOSTOP ---
Surgical Immed Post Op Note
-
Primary Surgeon: Andre Barnes MD
Assisting Surgeon: None
Pre-op Diagnosis: Acute cholecystitis
Post-op Diagnosis: Same
Procedure Performed: Laparoscopic cholecystectomy with cholangiogram
Anesthesia Type: General
Specimen / Cultures: Gallbladder and contents
Estimated Blood Loss: 23 cc
Complications: None
Operative Findings: Somewhat lateral and posteriorly displaced gallbladder which made exposure a little bit challenging. A critical view of safety obtained prior to a cholangiogram which demonstrated no distal filling defects. Duct ligated with a
clip followed by a 0 PDS Endoloop. Minimal spillage of bile
POST OP PLAN:
Imaging: None
Labs: Routine AM
Diet: Clears
Analgesia: Tylenol 650mg q6 Sb, Nneka 5mg q6 PRN, Dilaudid 0.5mg q2h PRN
Neuro/vascular checks: q4h
AC/AP: Hold Therapeutic AC, Ok for DVT PPx
Activity: Ad Bhumika
Wound/Incisions/Drains: Routine
Abx: Continue antibiotics x 4 days
Dispo: RNF
--- NOTE | 2023-11-06 14:39 | OR.RPT ---
Operative Report
Operative Report
Patient Name: Phil Pollock
: 1950
Date of Operation: 11/06/2023
Preoperative Diagnosis: Acute cholecystitis
Postoperative Diagnosis: Same
Procedure(s):
Laparoscopic Cholecystectomy with Cholangiogram
Surgeon(s):
Dr. Barnes
Major Account Representative(s):
None
Anesthesia: General
Estimated Blood Loss: 23 cc
Urine Output: None
Drains/Lines/Implants: None
Specimens:
1. Gallbladder and contents
HPI/Surgical Indications:
This is a 73-year-old male who presents with a 1 day history of right upper quadrant abdominal pain. Exam, labs and imaging are consistent with acute cholecystitis. Risks/Benefits/Alternatives were discussed at length, and the patient agreed to
proceed with surgery.
Operative Findings: Somewhat lateral and posteriorly displaced gallbladder which made exposure a little bit challenging. A critical view of safety obtained prior to a cholangiogram which demonstrated no distal filling defects. Duct ligated with a
clip followed by a 0 PDS Endoloop. Minimal spillage of bile
Procedure Description:
The patient was brought to the Operating Room and placed in the supine position with one arm tucked. Following uneventful induction of general endotracheal anesthesia, an orogastric tube was placed. The abdomen was prepped and draped in the usual
sterile fashion. A timeout was performed confirming the procedure, consent, and that IV antibiotics were infused and sequential compression devices were confirmed to be on. The abdomen was entered using an infraumbilical open Yinka technique with a
12 mm balloon-tipped trocar. Pneumoperitoneum to 15 mmHg pressure was obtained without difficulty and we confirmed that no injury had occurred during our entry. The patient was positioned in reverse Trendelenberg and rotated with the right side up
slightly. Three (3) 5mm trocars were then placed along the right subcostal margin. The gallbladder was in a fairly lateral and posterior position which made exposure somewhat difficult. The gallbladder was emptied using a decompressing needle
through the fundus of the gallbladder with evacuation of bile/hydrops before A locking grasping forceps was placed on the fundus of the gallbladder where it was then retracted cephalad and to the right. Using appropriate grasping instruments, the
peritoneum overlying the triangle of Calot was incised and extended superiorly on both the anterior and posterior gallbladder nash. The infundibulum was dissected off the cystic plate. The cystic triangle was dissected until a critical view of
safety was achieved. The cystic artery was medialized, dissected and controlled with 2 proximal clips and 1 distal. The cystic duct/gallbladder junction in turn was identified, dissected circumferentially and a clip was placed. A ductotomy was made
and a cholangiocatheter on an Nassar clamp was inserted into the cystic duct. A C-arm was draped and brought into the field. An intra-operative cholangiogram was performed and was noted to have:
No filling defects in the biliary tree
No significant biliary dilation
Brisk flow of contrast into the duodenum
Normal biliary anatomy
The catheter was then removed and the cystic duct was controlled with a clip followed by a 0 PDS Endoloop. After ensuring both the artery and duct were divided, the gallbladder was freed from the liver using electrocautery. There was some spillage
of bile, but no spillage of stones. The gallbladder bed was inspected and excellent hemostasis was obtained, with the help of some Surgicel which was left in place. The gallbladder was extracted through the 12 mm trocar site using an endocatch bag.
The abdomen was again irrigated and excellent hemostasis was assured. All remaining trocars were then removed and the pneumoperitoneum was evacuated. The 12 mm trocar site was closed using 0 PDS suture. All trocar sites were closed at the skin
level using 4-0 Monocryl followed by Dermabond. Overall, the patient tolerated the procedure well and was taken to the Recovery Room postoperatively in stable condition.
I was the attending physician and performed the procedure with no assistance. I was present for all portions of the case
Andre Barnes MD
[2023-11-06 14:40] LABS: Glucose - Point of Care 127 mg/dl (70-99)
--- NOTE | 2023-11-06 15:36 | PTCARENOTE ---
received from PACU s/p Laparoscopic cholecystectomy with cholangiogram. AAOx3, makes needs known. 4 lap sites KEILY, C/D/I. on RA, VSS, IVF infusing. patient is on CLD, tolerating PO liquids. family at bedside, assisting with care. cont to monitor
[2023-11-06] MEDS: PROTONIX IV IV (16:57)
[2023-11-06 17:06] LABS: Glucose - Point of Care 125 mg/dl (70-99)
[2023-11-06] MEDS: XALATAN OPHTHALMIC SOLUTION 1 DROP RIGHT EYE (19:39)
[2023-11-06 21:48] LABS: Glucose - Point of Care 192 mg/dl (70-99)
[2023-11-07] MEDS: ZOSYN 50 IV ×2 (00:43→05:17)
[2023-11-07] MEDS: NSS 1000 IV (00:46)
[2023-11-07 03:33] VITALS: BP 120/65
[2023-11-07 05:52] LABS: Hematocrit 34.1 % (39.0-52.0); Hemoglobin 11.6 g/dL (13.0-18.0); Mean Corpuscular Hgb 30.2 pg (27.0-31.0); Mean Corpuscular Volume 88.8 fL (80.0-94.0); Mean Platelet Volume 10.1 fL (7.4-10.4); Platelet Count 237 10^3/uL (130-400); Red Blood Cell Count 3.84 10^6/uL (4.70-6.10); Red Cell Dist. Width 12.6 % (11.5-14.5); White Blood Cell Count 9.7 10^3/uL (4.8-10.8)
[2023-11-07 06:18] LABS: ALT (SGPT) 114 U/L (0-50); AST (SGOT) 139 U/L (17-59); Albumin 3.8 g/dl (3.5-5.0); Alkaline Phosphatase 27 U/L (38-126); Blood Urea Nitrogen 23 mg/dl (9-20); Calcium 8.9 mg/dl (8.4-10.2); Carbon Dioxide 23 mmol/L (22-30); Chloride 107 mmol/L (98-107); Direct Bilirubin 0.2 mg/dl (0.0-0.4); Estimated Creatinine Clearance 57 ml/min; Glucose 127 mg/dl (70-99); Potassium 4.4 mmol/L (3.5-5.1); Sodium 143 mmol/L (135-145); Total Bilirubin 0.7 mg/dl (0.2-1.3); Total Protein 6.2 g/dl (6.3-8.2); eGFR 57.29
[2023-11-07 07:02] LABS: Glucose - Point of Care 116 mg/dl (70-99)
[2023-11-07 07:38] VITALS: BP 130/72
[2023-11-07] MEDS: PROTONIX IV 40 MG IV (07:58)
[2023-11-07] MEDS: NSS (PRESERVATIVE FREE) 10 ML IV (07:58)
--- NOTE | 2023-11-07 10:57 | W.PN.GS2 ---
Today's Communication / Plan
-
dispo planning
Assessment / Plan
-
73 yo male who is POD #1 Lap jhon with IOC for ACC
AFVSS
Labs stable post op
Tolerating diet
--Advance to regular diet
--Continue ABX x4 more days, Rx sent to pharmacy for Augmentin
--Analgesics prn
--Clear for d/c from surgical standpoint once tolerating diet
Subjective Data
-
Date of Service: November 07, 2023
Patient seen and examined at bedside with Dr. Barnes earlier this morning around 8:30am. Mild discomfort with movement to abd but otherwise no pain. No n/v. Tolerating diet.
Objective Data
-
Intake and Output
11/06/23 11/07/23 11/08/23
06:59 06:59 06:59
Intake Total 1000 / 1000 1840 / 1840
Output Total 400 / 400
Balance 1000 / 1000 1440 / 1440
Intake:
Oral fluids 0 / 0 240 / 240
IV fluids (Total) 1000 / 1000 1500 / 1500
ns 1000 / 1000
IV piggybacks 100 / 100
Output:
Urine, Voided 400 / 400
Other:
Number of unmeasured voidings 3
Number of approximated SMALL 1
amounts of urine
Number of approximated MODERATE 1
amounts of urine
Vital Signs
Temp Pulse Resp BP Pulse Ox
98.9 F 65 16 130/72 97
11/07/23 07:38 11/07/23 07:38 11/07/23 07:38 11/07/23 07:38 11/07/23 07:38
Lab Results
11/07/23 04:58
11/07/23 04:58
Calcium 8.9 mg/dl (8.4-10.2) D 11/07/23 04:58
Total Bilirubin 0.7 mg/dl (0.2-1.3) 11/07/23 04:58
Direct Bilirubin 0.2 mg/dl (0.0-0.4) 11/07/23 04:58
AST 139 U/L (17-59) H 11/07/23 04:58
ALT 114 U/L (0-50) H 11/07/23 04:58
Alkaline Phosphatase 27 U/L (38-126) L 11/07/23 04:58
Total Protein 6.2 g/dl (6.3-8.2) L 11/07/23 04:58
Albumin 3.8 g/dl (3.5-5.0) 11/07/23 04:58
Physical Exam
-
NAD
ABD soft, nd, nt
Incisions well approximated with intact glue
--- NOTE | 2023-11-07 11:05 | W.PN.HOSP.TC ---
Today's Communication/Plan
-
Discharge
Assessment / Plan
Assessment / Plan
#Acute calculus cholecystitis
-CT A/P yesterday showed cholelithiasis within the gallbladder neck, with distention and wall thickening
-Remains afebrile and nontoxic-appearing, no jaundice or signs of biliary obstruction; minimal pain as of now
-Currently on IV Zosyn empirically; n.p.o. with supportive IVF pending surgical procedure
-Currently on supportive care with opioid analgesia as needed and antiemetics as needed
-Will continue IV antibiotics pending laparoscopic cholecystectomy with surgical team today
#Elevated LFTs and lipase
-Only mildly elevated, no signs or symptoms since he is had his cholecystectomy
-Suspect that he may have had a stone pass prior to coming in
-Provided prescription for LFTs after discharge
#Type 2 diabetes mellitus
-Last A1c was 7%, Home meds include metformin twice daily
-Oral meds held on admission, was transitioned to sliding scale insulin with Accu-Chek
-Blood glucose goal 160-200
#CKD stage III
-Unclear cause, may be related to diabetes
-No association with anemia, acidemia, bone mineral disease
-Baseline creatinine is near 1.2-1.4, currently at baseline
#Glaucoma
-Stable on home latanoprost
DVT Prophylaxis: SCDs
Diet: N.p.o. pending surgery
Code Status: Full
Anticipated Discharge: Today
Subjective/Interval History
-
Date of Service: November 07, 2023
Seen and examined at bedside in street close. No acute events.
States he feels well, has spoken with surgeon and is ready to leave hospital. He is passing flatus though no bowel movement, has not eaten. Denies any chest pain, shortness of breath, fevers or chills, nausea, vomiting, diarrhea, constipation,
abdominal pain,
Objective Data
-
Labs:
Laboratory Results
11/07/23
04:58
WBC 9.7
Hgb 11.6 L
Hct 34.1 L
Plt Count 237
Sodium 143
Potassium 4.4
Chloride 107
Carbon Dioxide 23
BUN 23 H
Creatinine 1.3
Glucose 127 H
Calcium 8.9 D
Total Bilirubin 0.7
AST 139 H
ALT 114 H
Alkaline Phosphatase 27 L
Vital Signs:
Vital Signs
Temp Pulse Resp BP Pulse Ox
98.9 F 65 16 130/72 97
11/07/23 07:38 11/07/23 07:38 11/07/23 07:38 11/07/23 07:38 11/07/23 07:38
I&O
11/06/23 11/07/23 11/08/23
06:59 06:59 06:59
Intake Total 1000 / 1000 1840 / 1840
Output Total 400 / 400
Balance 1000 / 1000 1440 / 1440
Review of Systems
-
History Source: Patient
All other systems: Reviewed and negative
Physical Exam
-
General: Well Nourished, No Apparent Distress and Comfortable
Respiratory: Clear to Auscultation and Non Labored Respirations; Negative Accessory Resp Muscle Use
Cardiac: Regular Rhythm and S1/S2; Negative Murmur, Rub or Gallop
GI: Soft, Nontender, Nondistended and Normal Bowel Sounds
Musculoskeletal: No Clubbing, No Cyanosis and No Edema
Skin: Warm and Dry; Negative Rash or Jaundice
Neuro: AO x 3, Nonfocal/Grossly Intact and Central Nerve's Intact
Data Reviewed
-
Labs: Labs Reviewed by me and Discussed with Patient
--- NOTE | 2023-11-07 11:09 | W.DCSUMMARY ---
Discharge Summary
Discharge Data
Date of Admission: 11/06/23
Date of Discharge: 11/07/23
-
Pending Results: No
Additional Pending Results:
Prescription given for LFTs, have sent to PCP
Hospital Course
Presented to hospital with abdominal pain, nausea that started on the night before presentation. CT scan demonstrating signs of cholecystitis, gallstone was found to be located at the neck of the gallbladder. Radiologic findings consistent with
cholecystitis including wall thickening and edema. Was evaluated by surgery who performed a laparoscopic cholecystectomy on 11/06/2023. Following the procedure he demonstrated adequate bowel function with passing flatus. Premont well and was walking
through the hallways on the morning of discharge.
He did have a slightly elevated bilirubin, LFTs and lipase while here. Following his procedure he had no signs or symptoms of biliary obstruction, pancreatitis. He felt well, was tolerating oral intake. I provided him with a prescription to have
LFTs repeated after discharge for completeness. Results to be sent to PCP
Discharge Plan
-
Patient Disposition: Home (Routine Discharge)
Discharge Diagnosis/Procedures: Cholecystitis
Cholelithiasis
Condition: Good
Diet: As tolerated and Low Fat
Activity: No strenuous activity
Additional Activity: Do not lift any objects > 10 lb for 3 weeks or until you talk to your surgeon
Driving Restrictions: As prior to admission
Bathing Restrictions: OK to Shower
Blood Work: LFTs in 5 days after discharge, have results sent to family doctor
Activity Restrictions/Additional Instructions:
Instructions following Laparoscopic cholecystectomy
Please call [phone] if you have any questions or concerns after your surgery.
Wound Care:
Your incisions are covered with skin glue which will come off on it�s own in 5-10 days.
It is ok to shower the day after your surgery. Do not scrub the incisions, let soap and water wash over them and pat dry.
� Bruising around your incisions is normal.
� Using ice packs will help minimize this swelling.
� No swimming or soaking incisions for 1 week.
� Your stitches will dissolve and do not need to be removed.
Urinary retention:
If you are unable to urinate 6-8 hours after your surgery, please call [phone] to discuss further management.
Activity:
No heavy lifting more than 15 pounds for the next 3 weeks, then you may gradually lift heavier objects as tolerated by discomfort. Otherwise activity as tolerated by your comfort level.
Pain Management:
Use Tylenol, ibuprofen and ice packs to treat your pain.
� You may take 650 milligrams of Tylenol (Max 3 grams per day) every 6 hours, and 600 mg of ibuprofen also every 6 hours. (you can alternate them every 3 hours)
� You may use an ice pack to your incision as needed.
� If you still have pain not controlled by these measures, take your prescription pain medication as prescribed.
Medications:
You may resume your home medications.
Bowel Medications:
Prescription pain medication can make you constipated. If you take this medication, also take colace 100 mg twice daily (this is over the counter). If this is not sufficient, you may take Miralax (polyethylene glycol) to help move your bowels.
Diet:
After your procedure, there are no dietary restrictions. You may notice loose stools for up to 4 weeks after surgery with fatty meals, if this is the case you may have to adjust your diet as needed.
Driving restrictions:
No driving if you are taking prescription pain medication or if you think your normal reaction time and attentiveness has been slowed by your surgery.
Things to Look out for:
Worsening Abdominal pain, redness or drainage from incision
Call Doctor for:
Please call if you notice worsening redness or drainage from incision(s) lasting longer than 5 days after your surgery, any foul-smelling drainage from the incision, pain not controlled by pain medications, persistent nausea and vomiting, or for any
fevers greater than 101.3 F. The number for questions/concerns is [phone]
Follow-up:
Follow-up appointment will be scheduled with your surgeon in 3-4 weeks. Please call prior to your appointment if you have any questions or concerns. [phone]
Instructions: Gallstones
Referrals:
Eric Guerin MD [Family Provider] -
Andre Barnes MD [Active] - in two to four weeks
Prescriptions:
New
amoxicillin-pot clavulanate 875-125 mg tablet
1 tab PO Q12 Qty: 8 0RF
oxycodone 5 mg tablet
5 mg PO Q4HPRN PRN (Reason: breakthrough/severe pain) Qty: 5 0RF
Continued
latanoprost 0.005 % Drops
1 drp RIGHT EYE HS
aspirin 81 mg Tablet,Delayed Release (Dr/Ec)
81 mg PO QPM
metformin 500 mg Tablet Extended Release 24 Hr
500 mg PO BID
rosuvastatin [Crestor] 10 mg Tablet
10 mg PO QPM
fenofibrate nanocrystallized [Tricor] 145 mg Tablet
145 mg PO HS
Glucosamine Chondroitin 550-30-1 mg Capsule
1 cap PO QPM
Discharge Orders:
Discharge Patient (As Directed); Ordered 11/07/23
Ordered By: Israel Fox
Discharge Date and Time
Discharge Date/Time: 11/07/23 09:40
Print Language: GREENLANDIC
--- NOTE | 2023-11-07 11:09 | CM ---
Patient discharged home with no needs anticipated prior to CM competing assessment.
[2023-11-07 11:12] LABS: Glycohemoglobin (HgbA1c) 6.5 % (4.0-5.6)
== END 2023-11-07 09:40 | disposition home or self-care (01) | DRG 419 ==
LOC: 2 SOUTH 06:32
PROVIDERS: ADMITTING PHYSICIAN Hospitalist; ATTENDING PHYSICIAN Internal Medicine; CONSULT PHYSICIAN Surgery; EMERGENCY PHYSICIAN Emergency Medicine; FAMILY PHYSICIAN Family Medicine
PROC: BF101ZZ Fluoroscopy of Bile Ducts using Low Osmolar Contrast (ICD-10-PCS; 2023-11-06)
PROC: 0FT44ZZ Resection of Gallbladder, Percutaneous Endoscopic Approach (ICD-10-PCS; 2023-11-06)
DX: K80.00 Calculus of gallbladder with acute cholecystitis without obstruction (principal); E11.22 Type 2 diabetes mellitus with diabetic chronic kidney disease; N18.30 Chronic kidney disease, stage 3 unspecified; K21.9 Gastro-esophageal reflux disease without esophagitis; E78.00 Pure hypercholesterolemia, unspecified; H40.9 Unspecified glaucoma; N20.0 Calculus of kidney; Z87.891 Personal history of nicotine dependence; Z79.82 Long term (current) use of aspirin; Z79.84 Long term (current) use of oral hypoglycemic drugs
CPT/HCPCS: 88304; 74177; 74300; 76000; 80053; 82248; 82962; 83036; 83605; 83690; 85025; 85027; 93005; 96361; 96374; 96375; 96376; 99285; A4300; Q9967

== ENCOUNTER → 2023-11-16 07:08 | Outpatient (REF) | payer MEDICARE, OTHER, SELFPAY ==
[2023-11-16 09:52] LABS: ALT (SGPT) 37 U/L (0-50); AST (SGOT) 33 U/L (17-59); Albumin 4.2 g/dl (3.5-5.0); Alkaline Phosphatase 44 U/L (38-126); Direct Bilirubin 0.2 mg/dl (0.0-0.4); Total Bilirubin 0.4 mg/dl (0.2-1.3)
== END ==
LOC: HWLAB 07:08
PROVIDERS: ATTENDING PHYSICIAN Internal Medicine; FAMILY PHYSICIAN Family Medicine
DX: K80.20 Calculus of gallbladder without cholecystitis without obstruction (principal)
CPT/HCPCS: 36415; 80076

== ENCOUNTER 2024-01-06 05:44 | Inpatient (IN) | payer MEDICARE, OTHER, SELFPAY ==
[2024-01-05 23:05] VITALS: BP 163/88
--- NOTE | 2024-01-05 23:10 | EDRN ---
Pt prefers to have IV and blood at same time. Refused in triage.
[2024-01-06] VITALS (15 sets, daily range): BP systolic 101–150; BP diastolic 40–124; BMI 28.5
[2024-01-06] MEDS: NSS 1000 IV ×3 (02:20→18:37)
[2024-01-06] MEDS: TORADOL 30 MG IV (02:21)
--- NOTE | 2024-01-06 02:25 | ED.GENMED ---
History of Present Illness
General
Chief Complaint: Abdominal Pain
Source: patient
Exam Limitations: none
Time Seen by Provider: 01/06/24 01:37
History of Present Illness
History of Present Illness:
This is a 73 year old male that comes in with c/o abd pain that was like his gallbladder pain. States that he had his gallbladder out 2 months ago and this pain is the same pain that he had when he needed his gallbladder out. State that at first it
was on and off for a few days and it did let up earlier today and then at 7:30 pm it is constant. Denies any fever, chills, chest pain, SOB, nausea, vomiting, diarrhea, headache, dizziness, urinary burning.
Past History
Past History
ED Past Medical History: Hypercholesterolemia, NIDDM and Other (Renal calculus, Glaucoma, Ulcers)
ED Past Surgical History: Cholecystectomy, Orthopedic (Knee surgery), Tonsilectomy (and adenoids) and Other (Hernia repair 1970, Cataracts, Detached retina); Negative Urological
Social History
Tobacco: Former smoker
Alcohol: Occasional
Drug: None
Personal:
Living: with family
Employment: Retired
Family History
Family History: Other (Noncontributory)
Review of Systems
Review of Systems
All Other Systems: ROS reviewed and negative except as documented in HPI and ROS
Constitutional: Reports no symptoms; Denies fever or chills
EENT: Reports no symptoms
Respiratory: Reports no symptoms; Denies cough or trouble breathing
Cardiac: Reports no symptoms; Denies chest pain
ABD/GI: Reports abdominal pain; Denies nausea, vomiting or diarrhea
: Reports no symptoms; Denies dysuria, frequency or urgency
Musculoskeletal: Reports no symptoms
Skin: Reports no symptoms
Neurological: Reports no symptoms; Denies dizzy or headache
Psychiatric: Reports no symptoms
Phy Exam
General Physical Exam
General Presentation: well appearing and no apparent distress
General age: appears stated age
General Skin: warm and dry
General Habitus: elderly
General Mental: alert
General Hydration: dry mucous membranes
ENT Exam
ENT Exam: TM's normal, pharynx normal and neck supple
Eye Exam
Eye Exam: EOMI
Cardiovascular Exam
Cardiovascular Exam: regular rate/rhythm, no edema and normal peripheral pulses
Pulmonary Exam
Pulmonary Exam: lungs clear, no respiratory distress, no rales, chest non tender, no crackles, no rhonchi, no wheezing and no cough
Gastrointestinal Exam
Gastrointestinal Exam: normal bowel sounds, non tender, soft, no organomegaly, no pulsatile mass and non distended
Musculoskeletal Exam
Musculoskeletal Exam: full ROM and no edema
Skin Exam
Skin Exam: normal color, warm/dry, no rash and no petechia
Psychiatric Exam
Psychiatric Exam: normal mood/affect
Course
Orders/Labs/Results
Orders:
Orders
01/05/24 23:39
Complete Blood Count/With Diff Urgent
Comprehensive Metabolic Panel Urgent
Lipase Urgent
01/06/24 01:49
0.9% Sodium Chloride 1000 ml [Nss] 1,000 ml IV BOLUS
Ketorolac [Toradol] 30 mg IV NOW STA
01/06/24 01:50
CT Abd/pelvis W Iv Cont Urgent
Comment:
Reason For Exam: RUQ pain
01/06/24 02:20
Urinalysis Reflex To Culture Urgent
Date Specimen was Collected: 01/06/24
Time Specimen was Collected: 02:14
Urine Microscopic Reflex Cult Urgent
Abnormal Lab Results
01/06/24
02:20
RBC 4.26 L 10^6/uL
(4.70-6.10)
Hgb 12.5 L g/dL
(13.0-18.0)
Hct 36.6 L %
(39.0-52.0)
Absolute Lymphs (auto) 0.9 L 10^3/uL
(1.2-3.4)
Neutrophils % 80.5 H %
(42.2-75.2)
Lymphocytes % 11.8 L %
(20.5-51.1)
BUN 30 H mg/dl
(9-20)
Glucose 133 H mg/dl
(70-99)
Total Bilirubin 2.5 H mg/dl
(0.2-1.3)
AST 389 H U/L
(17-59)
ALT 290 H U/L
(0-50)
Lipase 363 H U/L
(23-300)
Urine Ketones Trace A
(Negative)
Urine Bilirubin 1+ A
(Negative)
Urine Urobilinogen 3+ A
(Neg - 1+)
Leukocyte Esterase Rfl Trace A
(Negative)
Urine Bacteria (Reflex) Few A
(Negative)
01/06/24 02:20
01/06/24 02:20
H/H slightly low. Dehydration, hyperglycemia, Total arley elevated, AST/ALT elevation. Lipase slightly elevated. urine negative for infection.
Vital Signs
Initial and Last Documented VS:
Initial Vital Signs
Temp Pulse Resp BP Pulse Ox
97.7 F 69 16 163/88 96
01/05/24 23:05 01/05/24 23:05 01/05/24 23:05 01/05/24 23:05 01/05/24 23:05
Last Documented Vital Signs
Temp Pulse Resp BP Pulse Ox
98.0 F 77 16 135/75 96
01/06/24 00:57 01/06/24 00:57 01/06/24 00:57 01/06/24 02:00 01/06/24 02:01
MDM/Problems Addressed
Differential Diagnosis Includes:
Renal calculus, Ductal stone
MDM/Problems Addressed:
This is a 73 year old male that comes in with c/o abd pain that is just like his gallbladder pain when he needed it out.
Will check labs and CT scan. Will give IV fluids and medicate for pain.
Back into see patient. States that his pain is better at this time. Explained that he would be admitted as his liver enzymes are elevated and the CT shows that there is a stone stuck. Patient will need further evaluation. Hospitalist notified.
Chronic conditions affecting care:
History of renal calculus
Acute Exacerbation and/or Progression of Chronic Illness:
NA
*Radiology
Radiology exam reviewed: radiology read reviewed (CT night hawk-Status post cholecystectomy with small of air and fluid in the gallbadder fossa, likely reflecting recent surgery. NO organized collection both of fluid could reflect biliary leak or
infection. Consider HIDA scan if clinically indicated. 3mm calcified gallstone lodged at the ampulla) and all reviewed NAD by ED Provider (CT cont- ampulla of vater, series 202, image 28. Superimposed cholangitis not excluded. Recommend ERCP. No
pancreatitis. Polycystic kidneys without obstructing stone. Appendix normal. NO bowel obstruction. The prostate is enlarged. Abdominal aorta is of normal caliber. )
*Pulse Oximetry
Patient hypoxic: no
*EKG
Interpreted by ED Provider?: NA
Rate: EKG- N/A
*Outside Sales Representative Insurance Interpretation
Rate: Outside Sales Representative Insurance- N/A
*Critical Care Note
Total Time (30-74mins, 75-104mins- exclusive of procedures): Not Applicable
ED Attending Note
-
Portions of this chart may have been created with voice recognition software.� Occasional wrong word or��sound alike� substitutions may have occurred due to the inherent limitations of voice recognition software.
Discharge Plan
Departure
Patient Disposition: Admit
Date of Disposition: 01/06/24
Time of Disposition: 04:11
Admit to: Med/Surg
Presentation/result/management discussed w/ accepting MD/DO: Hospitalist
Patient with high blood pressure during this ER visit?: Yes
Condition: Good
Covid-19: Not Applicable
Discharge Problem:
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
Prescriptions:
No Action
latanoprost 0.005 % Drops
1 drp RIGHT EYE HS
aspirin 81 mg Tablet,Delayed Release (Dr/Ec)
81 mg PO QPM
metformin 500 mg Tablet Extended Release 24 Hr
500 mg PO BID
rosuvastatin [Crestor] 10 mg Tablet
10 mg PO QPM
fenofibrate nanocrystallized [Tricor] 145 mg Tablet
145 mg PO HS
Glucosamine Chondroitin 550-30-1 mg Capsule
1 cap PO QPM
amoxicillin-pot clavulanate 875-125 mg tablet
1 tab PO Q12 Qty: 8 0RF
oxycodone 5 mg tablet
5 mg PO Q4HPRN PRN (Reason: breakthrough/severe pain) Qty: 5 0RF
Referrals:
Eric Guerin MD [Family Provider] -
Interventions
Interventions:
*Risk Screen - Suicide Last Done: 01/05/24 22:55
*Neglect/Abuse Screening Last Done: 01/05/24 22:55
ED- Fall Risk Assessment Last Done: 01/06/24 02:32
OZ-[place] Assessment Last Done: 01/06/24 02:32
Discharge Date and Time
Print Language: GE[place]GI[place]
[2024-01-06 02:43] LABS: Urine Albumin Negative (Neg - Trace); Urine Bilirubin 1+ (Negative); Urine Character Clear (Clear); Urine Color Amber; Urine Glucose Negative (Negative); Urine Ketone Trace (Negative); Urine Leukocyte Trace (Negative); Urine Nitrite Negative (Negative); Urine Occult Blood Negative (Negative); Urine Urobilinogen 3+ (Neg - 1+)
[2024-01-06 02:48] LABS: % Basophils 0.4 % (0-2); % Eosinophils 0.1 % (0-6); % Immature Granulocytes 0.4 % (0-0.5); % Lymphocytes 11.8 % (20.5-51.1); % Monocytes 6.8 % (1.7-9.3); % Neutrophils 80.5 % (42.2-75.2); Absolute Lymphocytes 0.9 10^3/uL (1.2-3.4); Absolute Monocytes 0.5 10^3/uL (0.1-0.6); Absolute Neutrophils 6.3 10^3/uL (1.4-6.5); Hematocrit 36.6 % (39.0-52.0); Hemoglobin 12.5 g/dL (13.0-18.0); Mean Corp Hgb Conc. 34.2 g/dL (33.0-37.0); Mean Corpuscular Hgb 29.3 pg (27.0-31.0); Mean Corpuscular Volume 85.9 fL (80.0-94.0); Mean Platelet Volume 9.7 fL (7.4-10.4); Nucleated Red Blood Cells % 0 % (-); Platelet Count 251 10^3/uL (130-400); Red Blood Cell Count 4.26 10^6/uL (4.70-6.10); Red Cell Dist. Width 13.3 % (11.5-14.5); White Blood Cell Count 7.8 10^3/uL (4.8-10.8)
[2024-01-06 03:04] LABS: ALT (SGPT) 290 U/L (0-50); AST (SGOT) 389 U/L (17-59); Albumin 4.6 g/dl (3.5-5.0); Alkaline Phosphatase 43 U/L (38-126); Blood Urea Nitrogen 30 mg/dl (9-20); Calcium 9.3 mg/dl (8.4-10.2); Carbon Dioxide 25 mmol/L (22-30); Chloride 105 mmol/L (98-107); Estimated Creatinine Clearance 53 ml/min; Glucose 133 mg/dl (70-99); Lipase 363 U/L (23-300); Potassium 4.8 mmol/L (3.5-5.1); Sodium 143 mmol/L (135-145); Total Bilirubin 2.5 mg/dl (0.2-1.3); Total Protein 7.1 g/dl (6.3-8.2); eGFR > 60.00
[2024-01-06 03:22] LABS: Urine Bacteria Few (Negative); Urine Red Blood Cell 0-2 /HPF (0-2)
--- NOTE | 2024-01-06 04:35 | HPS.HSE ---
Family Physician
-
Family Physician: Eric Guerin
Chief Complaint
-
Abd pain
History of Present Illness
Patient is a 73y M with PMH significant for DM-II and recent cholecystectomy who presents to ED complaining of abdominal pain. Patient states that she has been having nagging RUQ pain for the past few days - usually in the evenings. Pain is
identical to the discomfort that he experienced prior to his cholecystectomy. He denies any N/V, fevers / chills, etc. No radiation of the pain. The pain was much worse this evening, prompting him to present to the ED for further evaluation and
treatment.
CT scan done in the ED shows gallstone at the ampulla.
Medical History
Past Medical History
Past Medical History: Reports Other
Additional Past Medical History:
DM-II
CKD III
Nephrolithiasis
GERD
Glaucoma
Past Surgical History: Reports Other
Additional Past Surgical History:
Cholecystectomy with IOC (11/06/23)
Hernia Repair
R Knee Arthroscopy
T&A
Cataracts
Eye Surgeries
Social History
Tobacco: Former Smoker (Quit smoking 26y ago. Approx 30 pack years total.)
Alcohol: Occasional
Drug: None
Personal:
Living: With Family
Family History
Family History: Other (Mother: Colon Cancer)
Allergies / Home Medications
Allergies reflects when Allergies were last updated in [employer].
Home Medications with original date entered in [employer]
Allergy/Medication List:
Allergies
Allergy/AdvReac Type Severity Reaction Status Date / Time
No Known Allergies Allergy Verified 01/05/24 22:57
Home Medications
aspirin 81 mg tablet,delayed release 81 mg PO QPM Blood Clot Prevention/Tx 04/13/23
fenofibrate nanocrystallized 145 mg tablet (Tricor) 145 mg PO HS High Cholesterol 04/13/23
glucosamine sulf dipot chlr,msm,chond 550 mg-C 30 mg-edd 1 mg capsule (Glucosamine Chondroitin) 1 cap PO QPM Supplement 04/13/23
latanoprost 0.005 % eye drops 1 drp RIGHT EYE HS Eye Condition 04/13/23
metformin 500 mg tablet,extended release 24 hr 500 mg PO BID Diabetes 04/13/23
rosuvastatin 10 mg tablet (Crestor) 10 mg PO QPM High Cholesterol 04/13/23
Review of Systems
-
History Source: Patient
A 12 point ROS was completed and negative except as noted: Yes
Constitutional: Denies Fever or Chills
Respiratory: Denies Cough or Trouble Breathing
Cardiac: Denies Chest Pain or Palpitations
Abdomen/GI: Reports Abdominal Pain; Denies Nausea, Vomiting or Diarrhea
: Denies Dysuria or Frequency
Neurological: Denies Dizzy or Headache
Psych: Denies Depression or Anxiety
Physical Exam
Vital Signs
Vital Signs
Temp Pulse Resp BP Pulse Ox
98.0 F 77 16 128/71 97
01/06/24 00:57 01/06/24 00:57 01/06/24 00:57 01/06/24 03:00 01/06/24 03:00
Physical Exam
General: Other (73y M in no acute distress.)
HEENT: Moist mucous membranes
Respiratory: Clear; No Wheezes, Rales or Rhonchi
Cardiac: S1/S2 and Regular Rhythm; No Murmur
GI: Soft, Non Tender, Non Distended and Normal Bowel Sounds
Musculoskeletal: No Clubbing, No Cyanosis and No Edema
Neuro: AO x 3
Laboratory Results
-
01/06/24 02:20
01/06/24 02:20
Laboratory Results
Total Bilirubin 2.5 mg/dl (0.2-1.3) H 01/06/24 02:20
AST 389 U/L (17-59) H 01/06/24 02:20
ALT 290 U/L (0-50) H 01/06/24 02:20
Alkaline Phosphatase 43 U/L (38-126) 01/06/24 02:20
Lipase 363 U/L (23-300) H 01/06/24 02:20
Impression/Plan
-
A/P: Patient is a 73y M with PMH significant for DM-II and recent cholecystectomy who presents to ED complaining of abdominal pain.
CBD Stone
Abdominal Pain secondary to the above
- Admit for further evaluation and treatment.
- CT done in the ED shows stone at the ampulla of Vater - likely responsible for patient's symptoms.
- NPO, IVFs, pain control and antiemetics.
- GI evaluation for ERCP / sphincterotomy.
DM-II
- Stable. Hold PO medications acutely.
- Follow glucose and cover with SSI as needed.
- A1C in 10/2023 was 6.5%
CKD III
- Stable. Renal function is at / near known baseline.
- Follow for any changes.
DVT Prophylaxis: SCDs
Code Status: Full
[2024-01-06 06:28] LABS: Hemoglobin 10.8 g/dL (13.0-18.0); Mean Corp Hgb Conc. 33.8 g/dL (33.0-37.0); Mean Corpuscular Hgb 29.1 pg (27.0-31.0); Mean Corpuscular Volume 86.3 fL (80.0-94.0); Mean Platelet Volume 9.6 fL (7.4-10.4); Platelet Count 234 10^3/uL (130-400); Red Blood Cell Count 3.71 10^6/uL (4.70-6.10); Red Cell Dist. Width 13.2 % (11.5-14.5); White Blood Cell Count 5.3 10^3/uL (4.8-10.8)
[2024-01-06 06:52] LABS: ALT (SGPT) 265 U/L (0-50); AST (SGOT) 373 U/L (17-59); Albumin 3.8 g/dl (3.5-5.0); Alkaline Phosphatase 47 U/L (38-126); Blood Urea Nitrogen 29 mg/dl (9-20); Calcium 8.5 mg/dl (8.4-10.2); Carbon Dioxide 23 mmol/L (22-30); Chloride 107 mmol/L (98-107); Direct Bilirubin 1.5 mg/dl (0.0-0.4); Estimated Creatinine Clearance 49 ml/min; Glucose 128 mg/dl (70-99); Potassium 4.5 mmol/L (3.5-5.1); Sodium 142 mmol/L (135-145); Total Protein 6.1 g/dl (6.3-8.2); eGFR 57.29
[2024-01-06] MEDS: NSS (PRESERVATIVE FREE) 10 ML IV (07:39)
[2024-01-06] MEDS: PROTONIX IV 40 MG IV (07:39)
[2024-01-06 07:47] LABS: Glucose - Point of Care 124 mg/dl (70-99)
--- NOTE | 2024-01-06 08:50 | CON.GI ---
Addendum entered and electronically signed by Hitesh Tran MD 01/06/24 10:42:
I saw and evaluated the patient. I reviewed the resident�s note and agree with findings and plan as documented in the resident�s note.
73yo male presents with 5 days post prandial epigastric pain similar to GB sx when he had cholecystectomy 11/06/23. IOC during jhon showed irregularity in distal CBD. He was asymptomatic until this last week. LFTs elevated on admission and CT
shows 5mm CBD stone
REC:
Plan ERCP to remove CBD stone
NPO
Original Note:
Consultation
-
Date/Time Consultation Requested: 01/06/24 0557
Date/Time Consultation Performed: 01/06/24 07.30
Requesting Provider: Osman Antunez DO
Performing Provider: Carmen Moreno MD
Reason for Consultation: CBD Stone
Medical History
Chief Complaint / HPI
Chief Complaint: Abdominal pain
History of Present Illness:
The patient is a 73 years old male with a past medical history of DM 2, CKD III, nephrolithiasis, GERD, glaucoma who presented to ER on 01/05/2024 complaining from abdominal pain. Patient reports that his pain started a few days ago and it was on
and off. His pain started to be consistent yesterday afternoon. Report his pain feels like the pain when he was diagnosed with gallbladder stone. He had a surgery and his gallbladder removed about 2 months ago. Otherwise he denies any other
abdominal surgeries denies any color change with his stool and his urine.
Past Medical History
Past Medical History: GERD, NIDDM and Other (CKD III, Nephrolithiasis, Glaucoma)
Past Surgical History: Other ( Cholecystectomy with IOC (11/06/23) Hernia Repair R Knee Arthroscopy T&A Cataracts Eye Surgeries)
Social History
Tobacco: Former Smoker (Quit smoking 26y ago. Approx 30 pack years total.)
Alcohol: Occasional
Drug: None
Personal:
Family History
Family History: Other (Mother: Colon Cancer)
Allergies / Home Medications
Allergy/AdvReac Type Severity Reaction Status Date / Time
No Known Allergies Allergy Verified 01/05/24 22:57
�Medication �Instructions �Recorded
aspirin 81 mg tablet,delayed 81 mg PO QPM Blood Clot 04/13/23
release Prevention/Tx
fenofibrate nanocrystallized 145 145 mg PO HS High Cholesterol 04/13/23
mg tablet (Tricor)
glucosamine sulf dipot 1 cap PO QPM Supplement 04/13/23
chlr,msm,chond 550 mg-C 30 mg-edd
1 mg capsule (Glucosamine
Chondroitin)
latanoprost 0.005 % eye drops 1 drp RIGHT EYE HS Eye Condition 04/13/23
metformin 500 mg tablet,extended 500 mg PO BID Diabetes 04/13/23
release 24 hr
rosuvastatin 10 mg tablet (Crestor) 10 mg PO QPM High Cholesterol 04/13/23
Review of Systems
-
History Source: Patient
Constitutional: Reports No Symptoms and Other
EENT: Reports No Symptoms
Respiratory: Reports No Symptoms
Cardiac: Reports No Symptoms
Abdomen/GI: Reports No Symptoms and Pain (Pain on midabdominal area)
: Reports No Symptoms
Musculoskeletal: Reports No Symptoms
Skin: Reports No Symptoms
Neurological: Reports No Symptoms
Vital Signs
Temp Pulse Resp BP Pulse Ox
98 F 75 16 101/56 94
01/06/24 07:36 01/06/24 06:25 01/06/24 07:36 01/06/24 07:33 01/06/24 07:36
Physical Exam
Exam
General: Well Developed, Well Nourished and Pain
HEENT: Normocephalic and Anicteric
Respiratory: Clear
Cardiac: S1/S2 and Regular Rhythm
GI: Soft, Non Tender, Non Distended (reports he was feeling distended yesterday ), Normal Bowel Sounds and Other (mild pain to palpation on mid abdominal area)
Musculoskeletal: No Clubbing, No Cyanosis and No Edema
Skin: Warm
Neuro: Awake, Alert, Oriented and AO x 3
Results
WBC 5.3 10^3/uL (4.8-10.8) 01/06/24 06:01
Hgb 10.8 g/dL (13.0-18.0) L 01/06/24 06:01
Hct 32.0 % (39.0-52.0) L 01/06/24 06:01
MCV 86.3 fL (80.0-94.0) 01/06/24 06:01
Plt Count 234 10^3/uL (130-400) 01/06/24 06:01
Absolute Neuts (auto) 6.3 10^3/uL (1.4-6.5) 01/06/24 02:20
Sodium 142 mmol/L (135-145) 01/06/24 06:01
Potassium 4.5 mmol/L (3.5-5.1) 01/06/24 06:01
Chloride 107 mmol/L (98-107) 01/06/24 06:01
Carbon Dioxide 23 mmol/L (22-30) 01/06/24 06:01
BUN 29 mg/dl (9-20) H 01/06/24 06:01
Creatinine 1.3 mg/dL (0.7-1.3) 01/06/24 06:01
Calcium 8.5 mg/dl (8.4-10.2) 01/06/24 06:01
Total Bilirubin 2.0 mg/dl (0.2-1.3) H 01/06/24 06:01
AST 373 U/L (17-59) H 01/06/24 06:01
ALT 265 U/L (0-50) H 01/06/24 06:01
Alkaline Phosphatase 47 U/L (38-126) 01/06/24 06:01
Lipase 363 U/L (23-300) H 01/06/24 02:20
Diagnostic Image Results:
Abd/Pelvis CT 01/06/24
IMPRESSION:
1. Status post cholecystectomy. Inflammatory change and small bubbles of air within the gallbladder fossa, suggestive of recent cholecystectomy. No significant fluid collection within the gallbladder fossa.
2. 5 mm stone within the distal common bile duct. Common bile duct measures 5 mm in diameter. Consider ERCP.
3. Mild prostatic enlargement.
Prior GI Procedures:
EGD: Not known
Colonoscopy: 02/24/17
Impression: - Diverticulosis in the sigmoid colon and in the
descending colon.
- The examination was otherwise normal.
- The distal rectum and anal verge are normal on
retroflexion view.
- No specimens collected.
Recommendation: - Repeat colonoscopy in 5 years for surveillance.
Assessment / Plan
-
Impression: The patient is a 73-year-old male who presented to the ER with abdominal pain which started a few days ago and became consistent since yesterday. He reports his pain at the same place when he was diagnosed with with gallbladder stone.
He had the surgery and his gallbladder was removed about 2 months ago. He denies any surgeries from abdominal area and he denies any color change with stool and urine. Abdominal pelvis CT scan was obtained at ER which shows 5 mm stone within the
distal common bile duct. Common bile duct measures 5 mm in diameter. Additionally patient's lab studies shows increased LFT levels, TB 2.0, DB 1.5, urine bilirubin 1+A urine urobilinogen 3 +A.
Plan/Assessment:
#Common Bile Duct Stone
-Had his gallbladder removed 2 months ago
-CT shows:5 mm stone within the distal common bile duct. Common bile duct measures 5 mm in diameter
-Lab shows: AST 373, ALT 265, TB 2.0, DB 1.5
-On aspirin only
-Has been on NPO since yesterday night
-ERCP is planning today
-
-
Thank you for consultation and allowing me to participate in the patient's care. Please call the senior clinical consultant GI physician during the after hours with any questions or concerns.
--- NOTE | 2024-01-06 08:54 | PTCARENOTE ---
AOx3. VSS. Denies abd pain and nausea at this time. Discussed plan of care and informed of delays. Encouraged to make needs known.
[2024-01-06 11:50] LABS: Glucose - Point of Care 112 mg/dl (70-99)
[2024-01-06] MEDS: TORADOL 15 MG IV (12:40)
--- NOTE | 2024-01-06 14:00 | PTCARENOTE ---
Gave report to GI lab staff. PCT transferred patient to GI lab room 6.
--- NOTE | 2024-01-06 16:50 | W.PN.UPDATE ---
Update Note
Progress Note Update
findings discussed with Patient's / GI service - . will arrange transfer to [place] for repeat ERCP
[2024-01-06 17:09] LABS: Glucose - Point of Care 143 mg/dl (70-99)
--- NOTE | 2024-01-06 19:59 | PTCARENOTE ---
transferred from PACU. AAOx3, on clear liquids, tolerating PO. VSS. IVF infusing via RAC. patient asked for the procedure outcome and treatment plan to be explained to him in detail, Dr. Zuluaga was contacted in regards to patient's request. at
bedside. report given to upcoming shift
[2024-01-06 20:38] LABS: Glucose - Point of Care 197 mg/dl (70-99)
[2024-01-07 07:00] VITALS: BP 113/62
[2024-01-07] MEDS: NSS 1000 IV (07:34)
[2024-01-07] MEDS: NSS (PRESERVATIVE FREE) 10 ML IV (07:35)
[2024-01-07] MEDS: PROTONIX IV 40 MG IV (07:35)
[2024-01-07 08:03] LABS: Glucose - Point of Care 95 mg/dl (70-99)
[2024-01-07 09:33] LABS: % Basophils 0.2 % (0-2); % Eosinophils 0.5 % (0-6); % Immature Granulocytes 0.3 % (0-0.5); % Lymphocytes 21.6 % (20.5-51.1); % Monocytes 8.8 % (1.7-9.3); % Neutrophils 68.6 % (42.2-75.2); Absolute Lymphocytes 1.3 10^3/uL (1.2-3.4); Absolute Monocytes 0.5 10^3/uL (0.1-0.6); Absolute Neutrophils 4.1 10^3/uL (1.4-6.5); Hematocrit 30.4 % (39.0-52.0); Hemoglobin 10.2 g/dL (13.0-18.0); Mean Corp Hgb Conc. 33.6 g/dL (33.0-37.0); Mean Corpuscular Hgb 29.2 pg (27.0-31.0); Mean Corpuscular Volume 87.1 fL (80.0-94.0); Mean Platelet Volume 9.9 fL (7.4-10.4); Nucleated Red Blood Cells % 0 % (-); Platelet Count 195 10^3/uL (130-400); Red Blood Cell Count 3.49 10^6/uL (4.70-6.10); Red Cell Dist. Width 13.3 % (11.5-14.5); White Blood Cell Count 5.9 10^3/uL (4.8-10.8)
--- NOTE | 2024-01-07 09:56 | W.PN.GI.CBS2 ---
Addendum entered and electronically signed by Janett Quinonez MD 01/07/24 19:29:
I saw and examined the patient.
The resident's note was reviewed and I agree with the note.
Comment: Patient reports having twinges of pain in the right upper quadrant after having clear liquids but currently subsided.
LFTs normalized but MRCP did show 3 mm stone in the bile duct.
Spoke with [facility] and attendings at [place], he will be accepted to Dr. Clay's service at [place] for ERCP Wednesday.
Will monitor LFTs.
Original Note:
Today's Communication / Plan
-
-Transfer to [facility] to repeat ERCP
Assessment / Plan
-
Impression: The patient is a 73-year-old male who presented to the ER with abdominal pain which started a few days ago and became consistent since yesterday. He reports his pain at the same place when he was diagnosed with with gallbladder stone.
He had the surgery and his gallbladder was removed about 2 months ago. He denies any surgeries from abdominal area and he denies any color change with stool and urine. Abdominal pelvis CT scan was obtained at ER which shows 5 mm stone within the
distal common bile duct. Common bile duct measures 5 mm in diameter. Additionally patient's lab studies shows increased LFT levels, TB 2.0, DB 1.5, urine bilirubin 1+A urine urobilinogen 3 +A. The patient underwent ERCP by Poncho Zuluaga MD
on 01/06/24 which showed: no bile drainage and cannulate bile duct was unsuccessful. The patient was planned to transfer to [place] to repeat ERCP today.
Plan/Assessment:
#Common Bile Duct Stone
-Had his gallbladder removed 2 months ago
-CT shows:5 mm stone within the distal common bile duct. Common bile duct measures 5 mm in diameter
-Lab shows: AST 373, ALT 265, TB 2.0, DB 1.5 on 01/05 and AST 141, ALT 196, TB 0.7 on 01/06
-On aspirin only
-He been still NPO
-MRCP was ordered
-Planning to transfer the patient to [place] to repeat ERCP today
Subjective
Subjective
Date of Service: January 07, 2024
The patient was seen in his bed. Denies abdominal pain and feels comfortable. He is waiting to be transferred to [place] for repeat ERCP
Objective
Data Reviewed
Laboratory Data:
Laboratory Results
01/07/24 08:54
Laboratory Results
Total Bilirubin 2.0 mg/dl (0.2-1.3) H 01/06/24 06:01
AST 373 U/L (17-59) H 01/06/24 06:01
ALT 265 U/L (0-50) H 01/06/24 06:01
Alkaline Phosphatase 47 U/L (38-126) 01/06/24 06:01
Lipase 363 U/L (23-300) H 01/06/24 02:20
Vital Signs and I&O:
Vital Signs
Temp Pulse Resp BP Pulse Ox
98.2 F 51 16 113/62 97
01/07/24 07:00 01/07/24 07:00 01/07/24 07:00 01/07/24 07:00 01/07/24 07:00
I&O
01/06/24 01/07/24 01/08/24
06:59 06:59 06:59
Intake Total 720 / 720
Balance 720 / 720
Physical Exam
Physical Exam
HEENT: Anicteric and Moist mucous membranes
Cardiology: Normal Sinus Rhythm, S1 and S2
Pulmonary: Clear
GI: Soft, Non Distended and Non Tender
Extremities: No Edema
Neuro: Non Focal
[2024-01-07 10:29] LABS: ALT (SGPT) 196 U/L (0-50); AST (SGOT) 141 U/L (17-59); Albumin 3.6 g/dl (3.5-5.0); Alkaline Phosphatase 31 U/L (38-126); Blood Urea Nitrogen 31 mg/dl (9-20); Calcium 8.3 mg/dl (8.4-10.2); Carbon Dioxide 23 mmol/L (22-30); Chloride 110 mmol/L (98-107); Estimated Creatinine Clearance 53 ml/min; Glucose 106 mg/dl (70-99); Potassium 4.4 mmol/L (3.5-5.1); Sodium 144 mmol/L (135-145); Total Bilirubin 0.7 mg/dl (0.2-1.3); eGFR > 60.00
[2024-01-07 11:01] LABS: Glucose - Point of Care 108 mg/dl (70-99)
--- NOTE | 2024-01-07 14:08 | W.PN.HOSP.TC ---
Today's Communication/Plan
-
Assessment / Plan
Assessment / Plan
Imaging
CTAP
IMPRESSION:
1. Status post cholecystectomy. Inflammatory change and small bubbles of air within the gallbladder fossa, suggestive of recent cholecystectomy. No significant fluid collection within the gallbladder fossa.
2. 5 mm stone within the distal common bile duct. Common bile duct measures 5 mm in diameter. Consider ERCP.
3. Mild prostatic enlargement.
Findings are in agreement with the [facility] radiology report.
Procedures
ERCP
Impression: - Small hiatal hernia.
- A small amount of food (residue) in the stomach.
- J shaped stomach was noted
- Gastritis with erosions.
- The major papilla appeared to be bulging/ congested.
Multiple attempts were made to deeply cannulate bile
duct but unsuccessful.
Physical Exam
NAD, resting comfortably in bed
Scleral anicteric
Moist mucous membranes
No JVD
CTA bilateral
Normal S1-S2 no murmurs
Soft nontender nondistended bowel sounds active
No peripheral pitting edema
Moves extremities spontaneously
AAOx3
Assessment and Plan
Choledocholithiasis without evidence of cholangitic signs
-s/p ERCP, unable to canulate CBD, therefore, aborted, plan to transfer to [place] for ERCP when bed avaliable
-MRCP
-Daily LFT's
-CLD, advance as tolerated
DMII
-Metformin held
-On SSI
-Accuchecks
-BG goal 140-180
HLD
-Statin and fenofibrate
Glaucoma
-Continue lantanoprost
Plan to transfer to [place] when bed available
Full Code
Anticipated Discharge: 24 - 48 hours
Subjective/Interval History
-
Date of Service: January 07, 2024
seen and examined. no new complaints. no acute ovenright events
without abd pain currently, states he is hungry and wants pizza and pasta that his makes
he is quite happy with the nursing care he is recieving on the floor but did not like the nursing care in the OR for the procedure, he did not have confidence in the nurses there as one would do one thing and another would change it.
he was also unhappy that he saw the procedurlist while in the OR opposed to before.
Objective Data
-
Labs:
Laboratory Results
01/07/24
08:54
WBC 5.9
Hgb 10.2 L
Hct 30.4 L
Plt Count 195
Sodium 144
Potassium 4.4
Chloride 110 H
Carbon Dioxide 23
BUN 31 H
Creatinine 1.2
Glucose 106 H
Calcium 8.3 L
Total Bilirubin 0.7 D
AST 141 H
ALT 196 H
Alkaline Phosphatase 31 L
Vital Signs:
Vital Signs
Temp Pulse Resp BP Pulse Ox
98.2 F 51 16 113/62 97
01/07/24 07:00 01/07/24 07:00 01/07/24 07:00 01/07/24 07:00 01/07/24 07:00
I&O
01/06/24 01/07/24 01/08/24
06:59 06:59 06:59
Intake Total 720 / 720 160 / 160
Balance 720 / 720 160 / 160
[2024-01-07 15:00] VITALS: BP 123/65
[2024-01-07 16:57] LABS: Glucose - Point of Care 82 mg/dl (70-99)
[2024-01-07] MEDS: ASPIR LOW (ENTERIC COATED) 81 MG PO (17:14)
[2024-01-07] MEDS: CRESTOR 10 MG PO (17:14)
[2024-01-07] MEDS: TORADOL 15 MG IV (17:14)
--- NOTE | 2024-01-07 18:12 | W.DCSUMMARY ---
Discharge Summary
Discharge Data
Date of Admission: 01/06/24
Date of Discharge: 01/07/24
-
Pending Results: No
Hospital Course
Presented with abdominal pain. Found to have high LFTs CT abdomen pelvis demonstrating choledocholithiasis/common bile duct stone. Was taken for ERCP unfortunately was unable to cannulate common bile duct. Therefore it has been elected and
Phil agrees to be transferred to [facility] however unable to get a bed therefore GI transferred to [facility] under Dr. Clay service.
Choledocholithiasis without evidence of cholangitic signs
-s/p ERCP, unable to canulate CBD, therefore, aborted, plan to transfer to [place] for ERCP when bed avaliable
-MRCP
-Daily LFT's
-CLD, advance as tolerated
MRCP
IMPRESSION:
Postoperative changes of cholecystectomy. There is mild prominence of the intra and extrahepatic bile ducts which may be in part due to reservoir effect in the setting of cholecystectomy. There is apparent 3 mm filling defect within the distal
common bile duct, near the ampulla suspicious for choledocholithiasis.
Polycystic kidneys some of which demonstrate internal blood products.
1.8 cm cyst within the left hepatic lobe
CTAP
IMPRESSION:
1. Status post cholecystectomy. Inflammatory change and small bubbles of air within the gallbladder fossa, suggestive of recent cholecystectomy. No significant fluid collection within the gallbladder fossa.
2. 5 mm stone within the distal common bile duct. Common bile duct measures 5 mm in diameter. Consider ERCP.
3. Mild prostatic enlargement.
Findings are in agreement with the [facility] radiology report.
Procedures
ERCP
Impression: - Small hiatal hernia.
- A small amount of food (residue) in the stomach.
- J shaped stomach was noted
- Gastritis with erosions.
- The major papilla appeared to be bulging/ congested.
Multiple attempts were made to deeply cannulate bile
duct but unsuccessful.
Discharge Plan
-
Patient Disposition: Home (Routine Discharge)
Discharge Diagnosis/Procedures: choledocholithiasis
Condition: Good
Activity: As tolerated
Activity Restrictions/Additional Instructions:
Choledocholithiasis without evidence of cholangitic signs
-s/p ERCP, unable to canulate CBD, therefore, aborted, plan to transfer to [place] for ERCP when bed avaliable
-MRCP
-Daily LFT's
-CLD, advance as tolerated
MRCP
IMPRESSION:
Postoperative changes of cholecystectomy. There is mild prominence of the intra and extrahepatic bile ducts which may be in part due to reservoir effect in the setting of cholecystectomy. There is apparent 3 mm filling defect within the distal
common bile duct, near the ampulla suspicious for choledocholithiasis.
Polycystic kidneys some of which demonstrate internal blood products.
1.8 cm cyst within the left hepatic lobe
CTAP
IMPRESSION:
1. Status post cholecystectomy. Inflammatory change and small bubbles of air within the gallbladder fossa, suggestive of recent cholecystectomy. No significant fluid collection within the gallbladder fossa.
2. 5 mm stone within the distal common bile duct. Common bile duct measures 5 mm in diameter. Consider ERCP.
3. Mild prostatic enlargement.
Findings are in agreement with the [facility] radiology report.
Procedures
ERCP
Impression: - Small hiatal hernia.
- A small amount of food (residue) in the stomach.
- J shaped stomach was noted
- Gastritis with erosions.
- The major papilla appeared to be bulging/ congested.
Multiple attempts were made to deeply cannulate bile
duct but unsuccessful.
Referrals:
Eric Guerin MD [Family Provider] -
Prescriptions:
Continued
latanoprost 0.005 % Drops
1 drp RIGHT EYE HS
aspirin 81 mg Tablet,Delayed Release (Dr/Ec)
81 mg PO QPM
metformin 500 mg Tablet Extended Release 24 Hr
500 mg PO BID
rosuvastatin [Crestor] 10 mg Tablet
10 mg PO QPM
fenofibrate nanocrystallized [Tricor] 145 mg Tablet
145 mg PO HS
Glucosamine Chondroitin 550-30-1 mg Capsule
1 cap PO QPM
Discharge Orders:
Discharge Patient (As Directed); Ordered 01/07/24
Ordered By: Cas Walker
Discharge Date and Time
Print Language: [place]
[2024-01-07 21:22] LABS: Glucose - Point of Care 85 mg/dl (70-99)
[2024-01-07] MEDS: XALATAN OPHTHALMIC SOLUTION 1 DROP RIGHT EYE (21:37)
[2024-01-07] MEDS: TRICOR 145 MG PO (21:37)
[2024-01-07 23:20] VITALS: BP 108/55
[2024-01-08] MEDS: TORADOL 15 MG IV ×2 (00:03→06:24)
[2024-01-08] MEDS: DILAUDID 0.5 MG IV (07:43)
[2024-01-08] MEDS: NSS (PRESERVATIVE FREE) 10 ML IV (07:44)
[2024-01-08] MEDS: PROTONIX IV 40 MG IV (07:44)
[2024-01-08] MEDS: ZOFRAN 4 MG IV (07:49)
[2024-01-08 08:13] LABS: % Basophils 0.5 % (0-2); % Immature Granulocytes 0.3 % (0-0.5); % Lymphocytes 23.1 % (20.5-51.1); % Monocytes 7.3 % (1.7-9.3); % Neutrophils 67.8 % (42.2-75.2); Absolute Eosinophils 0.1 10^3/uL (0-0.7); Absolute Lymphocytes 1.4 10^3/uL (1.2-3.4); Absolute Monocytes 0.5 10^3/uL (0.1-0.6); Absolute Neutrophils 4.2 10^3/uL (1.4-6.5); Hematocrit 35.2 % (39.0-52.0); Hemoglobin 11.9 g/dL (13.0-18.0); Mean Corp Hgb Conc. 33.8 g/dL (33.0-37.0); Mean Corpuscular Hgb 30.4 pg (27.0-31.0); Mean Corpuscular Volume 89.8 fL (80.0-94.0); Mean Platelet Volume 10.4 fL (7.4-10.4); Nucleated Red Blood Cells % 0 % (-); Platelet Count 198 10^3/uL (130-400); Red Blood Cell Count 3.92 10^6/uL (4.70-6.10); Red Cell Dist. Width 13.6 % (11.5-14.5); White Blood Cell Count 6.2 10^3/uL (4.8-10.8)
[2024-01-08 08:22] VITALS: BP 162/93
[2024-01-08 08:32] LABS: ALT (SGPT) 337 U/L (0-50); AST (SGOT) 396 U/L (17-59); Albumin 3.8 g/dl (3.5-5.0); Alkaline Phosphatase 36 U/L (38-126); Blood Urea Nitrogen 31 mg/dl (9-20); Calcium 8.7 mg/dl (8.4-10.2); Carbon Dioxide 22 mmol/L (22-30); Chloride 110 mmol/L (98-107); Estimated Creatinine Clearance 46 ml/min; Glucose 87 mg/dl (70-99); Potassium 4.5 mmol/L (3.5-5.1); Sodium 144 mmol/L (135-145); Total Bilirubin 4.1 mg/dl (0.2-1.3); Total Protein 6.4 g/dl (6.3-8.2); eGFR 52.41
--- NOTE | 2024-01-08 08:57 | W.PN.GI.CBS2 ---
Today's Communication / Plan
-
#Common Bile Duct Stone
-Status post cholecystectomy 2 months ago
-MRCP showing distal common duct stone, plan is for ERCP.
Noted elevated total bilirubin, no leukocytosis or fever to suggest cholangitis. Given significant abdominal pain this morning, would continue on clear liquid diet.
Continue to monitor LFTs closely. For transfer to [place] for ERCP.
Will continue on full liquid
Will follow-up
Assessment / Plan
-
Impression: The patient is a 73-year-old male who presented to the ER with abdominal pain which started a few days ago and became consistent since yesterday. He reports his pain at the same place when he was diagnosed with with gallbladder stone.
He had the surgery and his gallbladder was removed about 2 months ago. He denies any surgeries from abdominal area and he denies any color change with stool and urine. Abdominal pelvis CT scan was obtained at ER which shows 5 mm stone within the
distal common bile duct. Common bile duct measures 5 mm in diameter. Additionally patient's lab studies shows increased LFT levels, TB 2.0, DB 1.5, urine bilirubin 1+A urine urobilinogen 3 +A. The patient underwent ERCP by Poncho Zuluaga MD
on 01/06/24 which showed: no bile drainage and cannulate bile duct was unsuccessful. The patient was planned to transfer to [place] to repeat ERCP today.
Plan/Assessment:
#Common Bile Duct Stone
-Status post cholecystectomy 2 months ago
-MRCP showing distal common duct stone, plan is for ERCP.
Noted elevated total bilirubin, no leukocytosis or fever to suggest cholangitis.
Did have abdominal pain again today. Would suggest staying on the clear liquid diet for now.
Continue to monitor LFTs closely. For transfer to [place] for ERCP.
Will follow-up
Subjective
Subjective
Date of Service: January 08, 2024
Patient reports episode of right upper quadrant abdominal pain that was pretty significant with nausea. Currently feels somewhat better. No fevers or chills. Had a bowel movement.
Objective
Data Reviewed
Laboratory Data:
Laboratory Results
01/08/24 07:05
01/08/24 07:05
Laboratory Results
Total Bilirubin 4.1 mg/dl (0.2-1.3) H D 01/08/24 07:05
AST 396 U/L (17-59) H 01/08/24 07:05
ALT 337 U/L (0-50) H 01/08/24 07:05
Alkaline Phosphatase 36 U/L (38-126) L 01/08/24 07:05
Lipase 363 U/L (23-300) H 01/06/24 02:20
Vital Signs and I&O:
Vital Signs
Temp Pulse Resp BP Pulse Ox
97.7 F 66 21 162/93 99
01/08/24 08:22 01/08/24 08:22 01/08/24 08:22 01/08/24 08:22 01/08/24 08:22
I&O
01/07/24 01/08/24 01/09/24
06:59 06:59 06:59
Intake Total 720 / 720 2059
Balance 720 / 720 2059
Physical Exam
Physical Exam
GI: Soft, Non Distended and Tender (Some discomfort on palpation of the right upper quadrant without guarding or rigidity)
[2024-01-08 09:52] LABS: Glucose - Point of Care 90 mg/dl (70-99)
--- NOTE | 2024-01-08 09:58 | CM ---
Alert awake oriented patient who lives with his Ana Maria who lives in a 2 story home with 2 step to enter and 13 steps to bed and bathroom. He is independent in driving and in all activities of daily living.He is to be transferred to [place] via
ambulance as soon as bed available. Called [phone] spoke to [facility] bed at this time. Receiving MD is Dr Clay. Pt and aware of plan.
No VN hx / No SNF history
No adaptive devices.
Pharmacy [facility]
PCP DR Guerin
PLAN To [place] when bed available. Transfer forms completed by
--- NOTE | 2024-01-08 10:44 | PTCARENOTE ---
pt c/o 12/22 pain in ruq. He had Dilaudid at 0743 that had some relief (see MAR). Also had Zofran for vomiting small amount of clear water. patient only tolerating sips of clears. I made Dr. Cas Walker aware and requested increase
dose/frequency of Dilaudid and to start patient on IVF's. Dr. Walker agreed, see new orders, patient made aware, will continue to monitor.
[2024-01-08] MEDS: DILAUDID 1 MG IV ×4 (11:16→21:46)
[2024-01-08] MEDS: D5/0.45%NACL 1000 IV (11:31)
[2024-01-08 13:14] LABS: Glucose - Point of Care 104 mg/dl (70-99)
--- NOTE | 2024-01-08 13:29 | W.PN.HOSP.TC ---
Today's Communication/Plan
-
ivf resumed, dextrose containing
he is now scared to eat
plan for dc to [facility] for ERCP
Assessment / Plan
Assessment / Plan
Imaging
CTAP
IMPRESSION:
1. Status post cholecystectomy. Inflammatory change and small bubbles of air within the gallbladder fossa, suggestive of recent cholecystectomy. No significant fluid collection within the gallbladder fossa.
2. 5 mm stone within the distal common bile duct. Common bile duct measures 5 mm in diameter. Consider ERCP.
3. Mild prostatic enlargement.
Findings are in agreement with the [facility]ology report.
Procedures
ERCP
Impression: - Small hiatal hernia.
- A small amount of food (residue) in the stomach.
- J shaped stomach was noted
- Gastritis with erosions.
- The major papilla appeared to be bulging/ congested.
Multiple attempts were made to deeply cannulate bile
duct but unsuccessful.
Physical Exam
NAD, resting comfortably in bed
Scleral anicteric
Moist mucous membranes
No JVD
CTA bilateral
Normal S1-S2 no murmurs
Soft nontender nondistended bowel sounds active
No peripheral pitting edema
Moves extremities spontaneously
AAOx3
Assessment and Plan
Choledocholithiasis without evidence of cholangitic signs
-s/p ERCP, unable to canulate CBD, therefore, aborted, plan to transfer to [place] for ERCP when bed avaliable
-MRCP
-Daily LFT's
-CLD, advance as tolerated
DMII
-Metformin held
-On SSI
-Accuchecks
-BG goal 140-180
HLD
-Statin and fenofibrate
Glaucoma
-Continue lantanoprost
Plan to transfer to [place] when bed available
Full Code
Anticipated Discharge: 24 - 48 hours
Subjective/Interval History
-
Date of Service: January 08, 2024
seen and examined. abd pain intermittent, itmittent nausea
Objective Data
-
Labs:
Laboratory Results
01/08/24
07:05
WBC 6.2
Hgb 11.9 L
Hct 35.2 L
Plt Count 198
Sodium 144
Potassium 4.5
Chloride 110 H
Carbon Dioxide 22
BUN 31 H
Creatinine 1.4 H
Glucose 87
Calcium 8.7
Total Bilirubin 4.1 H D
AST 396 H
ALT 337 H
Alkaline Phosphatase 36 L
Vital Signs:
Vital Signs
Temp Pulse Resp BP Pulse Ox
97.7 F 66 21 162/93 99
01/08/24 08:22 01/08/24 08:22 01/08/24 08:22 01/08/24 08:22 01/08/24 08:22
I&O
01/07/24 01/08/24 01/09/24
06:59 06:59 06:59
Intake Total 720 / 720 2059
Balance 720 / 720 2059
[2024-01-08 14:51] VITALS: BMI 28.5
--- NOTE | 2024-01-08 15:34 | PTCARENOTE ---
Dilaudid effective for pain control. RUQ with some tenderness, no guarding or rigidity. no further vomiting, will continue to monitor.
[2024-01-08 16:07] VITALS: BP 167/91
[2024-01-08] MEDS: ASPIR LOW (ENTERIC COATED) 81 MG PO (17:36)
[2024-01-08] MEDS: CRESTOR 10 MG PO (17:36)
[2024-01-08 18:09] LABS: Glucose - Point of Care 133 mg/dl (70-99)
[2024-01-08 21:12] LABS: Glucose - Point of Care 148 mg/dl (70-99)
[2024-01-08] MEDS: XALATAN OPHTHALMIC SOLUTION 1 DROP RIGHT EYE (21:46)
[2024-01-08] MEDS: TRICOR 145 MG PO (21:46)
[2024-01-08 23:39] VITALS: BP 142/78
[2024-01-09] MEDS: DILAUDID 1 MG IV ×4 (01:42→12:46)
[2024-01-09] MEDS: D5/0.45%NACL 1000 IV (03:22)
[2024-01-09 07:36] VITALS: BP 150/86
[2024-01-09 07:58] LABS: Glucose - Point of Care 129 mg/dl (70-99)
[2024-01-09] MEDS: PROTONIX IV 40 MG IV (08:57)
[2024-01-09] MEDS: NSS (PRESERVATIVE FREE) 10 ML IV (08:57)
[2024-01-09 10:48] LABS: ALT (SGPT) 434 U/L (0-50); AST (SGOT) 508 U/L (17-59); Albumin 3.6 g/dl (3.5-5.0); Alkaline Phosphatase 56 U/L (38-126); Blood Urea Nitrogen 30 mg/dl (9-20); Calcium 7.8 mg/dl (8.4-10.2); Carbon Dioxide 25 mmol/L (22-30); Chloride 108 mmol/L (98-107); Estimated Creatinine Clearance 58 ml/min; Glucose 151 mg/dl (70-99); Potassium 4.1 mmol/L (3.5-5.1); Sodium 141 mmol/L (135-145); Total Bilirubin 7.6 mg/dl (0.2-1.3); Total Protein 6.2 g/dl (6.3-8.2); eGFR > 60.00
--- NOTE | 2024-01-09 11:06 | PTCARENOTE ---
TT to at 1106: Gonzalo, rm 325, Phil Moran, I'm reporting his critical AST 508 that just came back from 396 yesterday.
--- NOTE | 2024-01-09 12:52 | W.PN.HOSP.TC ---
Today's Communication/Plan
-
transfer o [facility]
Assessment / Plan
Assessment / Plan
Imaging
CTAP
IMPRESSION:
1. Status post cholecystectomy. Inflammatory change and small bubbles of air within the gallbladder fossa, suggestive of recent cholecystectomy. No significant fluid collection within the gallbladder fossa.
2. 5 mm stone within the distal common bile duct. Common bile duct measures 5 mm in diameter. Consider ERCP.
3. Mild prostatic enlargement.
Findings are in agreement with the [facility] report.
Procedures
ERCP
Impression: - Small hiatal hernia.
- A small amount of food (residue) in the stomach.
- J shaped stomach was noted
- Gastritis with erosions.
- The major papilla appeared to be bulging/ congested.
Multiple attempts were made to deeply cannulate bile
duct but unsuccessful.
Physical Exam
NAD, resting comfortably in bed
Scleral anicteric
Moist mucous membranes
No JVD
CTA bilateral
Normal S1-S2 no murmurs
Soft nontender nondistended bowel sounds active
No peripheral pitting edema
Moves extremities spontaneously
AAOx3
Assessment and Plan
Choledocholithiasis without evidence of cholangitic signs
-s/p ERCP, unable to canulate CBD, therefore, aborted, plan to transfer to [place] for ERCP when bed avaliable
-MRCP
-Daily LFT's
-CLD, advance as tolerated
DMII
-Metformin held
-On SSI
-Accuchecks
-BG goal 140-180
HLD
-Statin and fenofibrate
Glaucoma
-Continue lantanoprost
Plan to transfer to [place] when bed available
Full Code
Anticipated Discharge: Today
Subjective/Interval History
-
Date of Service: January 09, 2024
seen and examined. no new complaitns. no acute overngith events
feeling better
some abd pain
Objective Data
-
Labs:
Laboratory Results
01/09/24
10:15
Sodium 141
Potassium 4.1
Chloride 108 H
Carbon Dioxide 25
BUN 30 H
Creatinine 1.1
Glucose 151 H
Calcium 7.8 L
Total Bilirubin 7.6 H D
AST 508 H*
ALT 434 H
Alkaline Phosphatase 56
Vital Signs:
Vital Signs
Temp Pulse Resp BP Pulse Ox
97.6 F 79 20 150/86 95
01/09/24 07:36 01/09/24 07:36 01/09/24 07:36 01/09/24 07:36 01/09/24 07:36
I&O
01/08/24 01/09/24 01/10/24
06:59 06:59 06:59
Intake Total 2059
Balance 2059
--- NOTE | 2024-01-09 12:54 | W.DCSUMMARY ---
Discharge Summary
Discharge Data
Date of Admission: 01/06/24
Date of Discharge: 01/09/24
-
Pending Results: No
Hospital Course
73-year-old male who presented to the ER with abdominal pain which started a few days ago and became consistent since yesterday. He reports his pain at the same place when he was diagnosed with with gallbladder stone. He had the surgery and his
gallbladder was removed about 2 months ago. He denies any surgeries from abdominal area and he denies any color change with stool and urine. Abdominal pelvis CT scan was obtained at ER which shows 5 mm stone within the distal common bile duct.
Common bile duct measures 5 mm in diameter. Additionally patient's lab studies shows increased LFT levels, TB 2.0, DB 1.5.
Choledocholithiasis without evidence of cholangitic signs
-s/p ERCP, unable to canulate CBD, therefore, aborted, [facility] when bed avaliable
-MRCP
-Daily LFT's
-CLD, advance as tolerated
MRCP
IMPRESSION:
Postoperative changes of cholecystectomy. There is mild prominence of the intra and extrahepatic bile ducts which may be in part due to reservoir effect in the setting of cholecystectomy. There is apparent 3 mm filling defect within the distal
common bile duct, near the ampulla suspicious for choledocholithiasis.
Polycystic kidneys some of which demonstrate internal blood products.
1.8 cm cyst within the left hepatic lobe
CTAP
IMPRESSION:
1. Status post cholecystectomy. Inflammatory change and small bubbles of air within the gallbladder fossa, suggestive of recent cholecystectomy. No significant fluid collection within the gallbladder fossa.
2. 5 mm stone within the distal common bile duct. Common bile duct measures 5 mm in diameter. Consider ERCP.
3. Mild prostatic enlargement.
Findings are in agreement with the [facility] report.
Procedures
ERCP
Impression: - Small hiatal hernia.
- A small amount of food (residue) in the stomach.
- J shaped stomach was noted
- Gastritis with erosions.
- The major papilla appeared to be bulging/ congested.
Multiple attempts were made to deeply cannulate bile
duct but unsuccessful.
MRCP
IMPRESSION:
Postoperative changes of cholecystectomy. There is mild prominence of the intra and extrahepatic bile ducts which may be in part due to reservoir effect in the setting of cholecystectomy. There is apparent 3 mm filling defect within the distal
common bile duct, near the ampulla suspicious for choledocholithiasis.
Polycystic kidneys some of which demonstrate internal blood products.
1.8 cm cyst within the left hepatic lobe
Discharge Plan
-
Patient Disposition: Home (Routine Discharge)
Discharge Diagnosis/Procedures: choledocholithiasis
Condition: Good
Activity: As tolerated
Activity Restrictions/Additional Instructions:
Choledocholithiasis without evidence of cholangitic signs
-s/p ERCP, unable to canulate CBD, therefore, aborted, plan to transfer to [place] for ERCP when bed avaliable
-MRCP
-Daily LFT's
-CLD, advance as tolerated
MRCP
IMPRESSION:
Postoperative changes of cholecystectomy. There is mild prominence of the intra and extrahepatic bile ducts which may be in part due to reservoir effect in the setting of cholecystectomy. There is apparent 3 mm filling defect within the distal
common bile duct, near the ampulla suspicious for choledocholithiasis.
Polycystic kidneys some of which demonstrate internal blood products.
1.8 cm cyst within the left hepatic lobe
CTAP
IMPRESSION:
1. Status post cholecystectomy. Inflammatory change and small bubbles of air within the gallbladder fossa, suggestive of recent cholecystectomy. No significant fluid collection within the gallbladder fossa.
2. 5 mm stone within the distal common bile duct. Common bile duct measures 5 mm in diameter. Consider ERCP.
3. Mild prostatic enlargement.
Findings are in agreement with the [facility] report.
Procedures
ERCP
Impression: - Small hiatal hernia.
- A small amount of food (residue) in the stomach.
- J shaped stomach was noted
- Gastritis with erosions.
- The major papilla appeared to be bulging/ congested.
Multiple attempts were made to deeply cannulate bile
duct but unsuccessful.
Referrals:
Eric Guerin MD [Family Provider] -
Prescriptions:
Continued
latanoprost 0.005 % Drops
1 drp RIGHT EYE HS
aspirin 81 mg Tablet,Delayed Release (Dr/Ec)
81 mg PO QPM
metformin 500 mg Tablet Extended Release 24 Hr
500 mg PO BID
rosuvastatin [Crestor] 10 mg Tablet
10 mg PO QPM
fenofibrate nanocrystallized [Tricor] 145 mg Tablet
145 mg PO HS
Glucosamine Chondroitin 550-30-1 mg Capsule
1 cap PO QPM
Discharge Orders:
Discharge Patient (As Directed); Ordered 01/07/24
Ordered By: Cas Walker
Discharge Date and Time
Print Language: ESTONIAN
[2024-01-09 13:32] LABS: Glucose - Point of Care 136 mg/dl (70-99)
--- NOTE | 2024-01-09 13:42 | W.PN.GI.CBS2 ---
Today's Communication / Plan
-
#Common Bile Duct Stone
-Status post cholecystectomy 2 months ago
-MRCP showing distal common duct stone, plan is for ERCP.
Noted continued elevation in total bilirubin, no leukocytosis or fever to suggest cholangitis.
He has a bed at [facility], will be transferred tonight for ERCP tomorrow
Will follow-up
Assessment / Plan
-
Impression: The patient is a 73-year-old male who presented to the ER with abdominal pain which started a few days ago and became consistent since yesterday. He reports his pain at the same place when he was diagnosed with with gallbladder stone.
He had the surgery and his gallbladder was removed about 2 months ago. He denies any surgeries from abdominal area and he denies any color change with stool and urine. Abdominal pelvis CT scan was obtained at ER which shows 5 mm stone within the
distal common bile duct. Common bile duct measures 5 mm in diameter. Additionally patient's lab studies shows increased LFT levels, TB 2.0, DB 1.5, urine bilirubin 1+A urine urobilinogen 3 +A. The patient underwent ERCP by Poncho Zuluaga MD
on 01/06/24 which showed: no bile drainage and cannulate bile duct was unsuccessful. The patient was planned to transfer to [place] to repeat ERCP today.
Plan/Assessment:
#Common Bile Duct Stone
-Status post cholecystectomy 2 months ago
-MRCP showing distal common duct stone, plan is for ERCP.
Noted continued elevation in total bilirubin, no leukocytosis or fever to suggest cholangitis.
He has a bed at [facility], will be transferred tonight for ERCP tomorrow
Will follow-up
Subjective
Subjective
Date of Service: January 09, 2024
Patient continues to complain of intermittent right upper quadrant abdominal pain needing pain medication. No fevers or chills.
Objective
Data Reviewed
Laboratory Data:
Laboratory Results
01/08/24 07:05
01/09/24 10:15
Laboratory Results
Total Bilirubin 7.6 mg/dl (0.2-1.3) H D 01/09/24 10:15
AST 508 U/L (17-59) H* 01/09/24 10:15
ALT 434 U/L (0-50) H 01/09/24 10:15
Alkaline Phosphatase 56 U/L (38-126) 01/09/24 10:15
Lipase 363 U/L (23-300) H 01/06/24 02:20
Vital Signs and I&O:
Vital Signs
Temp Pulse Resp BP Pulse Ox
97.6 F 79 20 150/86 95
01/09/24 07:36 01/09/24 07:36 01/09/24 07:36 01/09/24 07:36 01/09/24 07:36
I&O
01/08/24 01/09/24 01/10/24
06:59 06:59 06:59
Intake Total 2059
Balance 2059
Physical Exam
Physical Exam
GI: Soft, Non Distended and Tender (Discomfort on palpation in the right upper quadrant)
[2024-01-09 15:33] VITALS: BP 150/82
[2024-01-09] MEDS: CRESTOR 10 MG PO (16:29)
[2024-01-09] MEDS: ASPIR LOW (ENTERIC COATED) 81 MG PO (16:29)
--- NOTE | 2024-01-09 16:48 | CM ---
[facility] called to say pt [facility] . Ambulance med nec form completed.
PLAN To [facility]
[2024-01-09] MEDS: TORADOL 15 MG IV (18:31)
[2024-01-09 18:54] LABS: Glucose - Point of Care 141 mg/dl (70-99)
[2024-01-09] MEDS: TRICOR 145 MG PO (21:47)
[2024-01-09] MEDS: XALATAN OPHTHALMIC SOLUTION 1 DROP RIGHT EYE (21:47)
[2024-01-09 23:08] VITALS: BP 141/91
[2024-01-10] MEDS: TORADOL 15 MG IV (00:46)
[2024-01-10] MEDS: DILAUDID 1 MG IV (01:35)
--- NOTE | 2024-01-10 02:06 | PTCARENOTE ---
Pt picked up via EMS @ 2am to transport to [facility]. Discharge paperwork read aloud to patient, patient verbalized he understood.
== END 2024-01-10 02:00 | disposition short-term general hospital (02) | DRG 446 ==
LOC: 3 WEST ACU 05:44
PROVIDERS: Clinical Nurse Specialist Family Health; Emergency Medicine; Internal Medicine Gastroenterology; ADMITTING PHYSICIAN Hospitalist; ATTENDING PHYSICIAN Hospitalist; CONSULT PHYSICIAN Specialist; EMERGENCY PHYSICIAN Emergency Medicine; FAMILY PHYSICIAN Family Medicine
PROC: 0DJ08ZZ Inspection of Upper Intestinal Tract, Via Natural or Artificial Opening Endoscopic (ICD-10-PCS; 2024-01-06)
DX: K80.50 Calculus of bile duct without cholangitis or cholecystitis without obstruction (principal); K29.00 Acute gastritis without bleeding; E11.22 Type 2 diabetes mellitus with diabetic chronic kidney disease; E78.00 Pure hypercholesterolemia, unspecified; N18.30 Chronic kidney disease, stage 3 unspecified; K21.9 Gastro-esophageal reflux disease without esophagitis; K44.9 Diaphragmatic hernia without obstruction or gangrene; E86.0 Dehydration; E11.65 Type 2 diabetes mellitus with hyperglycemia; H40.9 Unspecified glaucoma; N40.0 Benign prostatic hyperplasia without lower urinary tract symptoms; Z90.49 Acquired absence of other specified parts of digestive tract; Z87.891 Personal history of nicotine dependence; Z79.84 Long term (current) use of oral hypoglycemic drugs; Z79.82 Long term (current) use of aspirin
CPT/HCPCS: 74177; 74181; 76000; 80053; 81003; 81015; 82248; 82962; 83690; 85025; 85027; 96361; 96374; 99285; C1769; Q9967

== ENCOUNTER 2024-01-14 06:31 | Inpatient (IN) | payer MEDICARE, OTHER, SELFPAY ==
--- NOTE | 2024-01-14 02:41 | ED.GENMED ---
History of Present Illness
<BOLIVAR Page - Last Filed: 01/14/24 06:13>
General
Chief Complaint: Flank Pain
Source: patient and spouse
Time Seen by Provider: 01/14/24 02:41
History of Present Illness
History of Present Illness:
A mildly distressed 73-year-old male with a past medical history of cholelithiasis, nephrolithiasis, hyperlipidemia, glaucoma, diabetes mellitus type 2 presents to the emergency room for bilateral flank pain. Patient was recently seen at [facility] for a 5 mm obstructing gallstone where he was treated with an ERCP on 01/06/2024. He subsequently developed acute pancreatitis which was also managed at [facility], and discharged on 01/09/2024.. The patient states the left-sided flank
pain began nearly 2 weeks ago 'a few days prior to surgery '. He states it is localized to his left flank without radiation to his groin. He also admits to new onset right-sided flank pain which is presenting similarly without radiation. He
states his left-sided flank pain is 9 out of 10. He denies nausea, vomiting, diarrhea, headache, hematuria, frequency, urgency,.
Patient has an extensive history of nephrolithiasis and renal cysts. Report from abdominal/pelvis CT on 11/06/2023 demonstrated multiple bilateral renal cysts and multiple renal calculi, bilaterally. Patient also had a cholecystectomy in October
due to recurrent gallbladder colic.
Past History
<BOLIVAR Page - Last Filed: 01/14/24 06:13>
Past History
ED Past Medical History: Hypercholesterolemia, NIDDM and Other (Renal calculus, Glaucoma, Ulcers)
ED Past Surgical History: Cholecystectomy, Orthopedic (Knee surgery), Tonsilectomy (and adenoids) and Other (Hernia repair 1970, Cataracts, Detached retina); Negative Urological
Social History
Tobacco: Former smoker
Alcohol: Occasional
Drug: None
Personal:
Living: with family
Employment: Retired
Family History
Family History: Other (Noncontributory)
Phy Exam
<BOLIVAR Page - Last Filed: 01/14/24 06:13>
General Physical Exam
General Presentation: other (unwell, and in pain )
General age: appears stated age
General Skin: warm
General Habitus: elderly and obese
General Mental: alert
General Hydration: appears well hydrated
Eye Exam
Eye Exam: PERRL
Cardiovascular Exam
Cardiovascular Exam: regular rate/rhythm, no edema, no gallop, no murmur and normal peripheral pulses
Gastrointestinal Exam
Gastrointestinal Exam: non tender, soft, cva tenderness (Left-sided) and distended
Palpation: left upper quadrant: No tenderness, left lower quadrant: No tenderness, right upper quadrant: No tenderness and right lower quadrant: No tenderness
Auscultation of Abdomen: hypoactive
Neurological Exam
Neurological Exam: alert and oriented x3
Musculoskeletal Exam
Musculoskeletal Exam: full ROM
Psychiatric Exam
Psychiatric Exam: other (In visible pain)
Course
<BOLIVAR Page - Last Filed: 01/14/24 06:13>
Orders/Labs/Results
Orders:
Orders
01/14/24 03:33
CT Abd/pelvis W Iv Cont Urgent
Comment:
Reason For Exam: abdominal pain , distention
01/14/24 03:41
CBC/With Diff [Complete Blood Count/With Diff] Urgent
CMP [Comprehensive Metabolic Panel] Urgent
Lactic Acid Q4H
Comment: CANCEL 2nd LACTIC ACID IF 1st LACTIC ACID IS LESS THAN 2
Lipase Urgent
Urinalysis Reflex To Culture Urgent
Date Specimen was Collected: 01/14/24
Time Specimen was Collected: 03:20
01/14/24 03:46
HYDROmorphone [Dilaudid] 0.5 mg IV NOW STA
Ondansetron Injectable [Zofran] 4 mg IV NOW STA
01/14/24 03:53
Lactated Ringers [Lr] 1,000 ml IV BOLUS
01/14/24 05:48
Admit/Transfer Patient As Directed
Co-Sign Provider:
Level of Care: Inpatient admission
Assign to:: Medical/Surgical
Physician / Group: Tulio
Diagnosis: Pancreatitis
Reason for Hospitalization: Pancreatitis
Expected length of stay greater than two midnights?: Yes
ELOS- Estimated Length of Stay in days: 4
I certify the patient meets the requirements for IP care: Yes
HYDROmorphone [Dilaudid] 0.5 mg IV NOW STA
PRN Pain Medication Management As Directed
May give lesser potent ordered pain med per pt: Yes
preference::
Protocol:: Medication orders for pain may be administered in a
manner that supports deferring to patient preference
when the pt is:
- Requesting an ordered lesser potent pain medication.
Least to most potent pain medications are defined
as: acetaminophen < NSAID < tramadol < opioids
(morphine, oxycodone, hydromorphone).
- Requesting a lesser dose of the same medication IF
ORDERED.
- Requesting a less intrusive route of administration
if both routes are prescribed by the provider (PO <
IV).
01/14/24 05:49
Code Status As Directed
Resuscitation Status: Full Code
Abnormal Lab Results
01/14/24
03:41
WBC 15.5 H 10^3/uL
(4.8-10.8)
RBC 3.65 L 10^6/uL
(4.70-6.10)
Hgb 10.8 L g/dL
(13.0-18.0)
Hct 31.2 L %
(39.0-52.0)
RDW 14.6 H %
(11.5-14.5)
Abs Immat Gran (auto) 0.3 H 10^3/uL
(0-0.05)
Absolute Neuts (auto) 12.7 H 10^3/uL
(1.4-6.5)
Absolute Lymphs (auto) 0.9 L 10^3/uL
(1.2-3.4)
Absolute Monos (auto) 1.4 H 10^3/uL
(0.1-0.6)
Immature Gran % 1.7 H %
(0-0.5)
Neutrophils % 82.3 H %
(42.2-75.2)
Lymphocytes % 5.8 L %
(20.5-51.1)
Chloride 111 H mmol/L
(98-107)
BUN 21 H mg/dl
(9-20)
Glucose 162 H mg/dl
(70-99)
Calcium 7.8 L mg/dl
(8.4-10.2)
ALT 73 H U/L
(0-50)
Total Protein 5.3 L g/dl
(6.3-8.2)
Albumin 2.7 L g/dl
(3.5-5.0)
Lipase 331 H U/L
(23-300)
Urine Urobilinogen 4+ A
(Neg - 1+)
01/14/24 03:41
01/14/24 03:41
Vital Signs
Initial and Last Documented VS:
Initial Vital Signs
Temp Pulse Resp Pulse Ox
99.1 F 74 26 96
01/14/24 02:13 01/14/24 02:13 01/14/24 02:13 01/14/24 02:13
Last Documented Vital Signs
Temp Pulse Resp Pulse Ox
99.1 F 74 26 96
01/14/24 02:13 01/14/24 02:13 01/14/24 02:13 01/14/24 02:13
<Phil Garnica, DO - Last Filed: 01/14/24 05:16>
Orders/Labs/Results
Orders:
Orders
01/14/24 03:33
CT Abd/pelvis W Iv Cont Urgent
Comment:
Reason For Exam: abdominal pain , distention
01/14/24 03:41
CBC/With Diff [Complete Blood Count/With Diff] Urgent
CMP [Comprehensive Metabolic Panel] Urgent
Lactic Acid Q4H
Comment: CANCEL 2nd LACTIC ACID IF 1st LACTIC ACID IS LESS THAN 2
Lipase Urgent
Urinalysis Reflex To Culture Urgent
Date Specimen was Collected: 01/14/24
Time Specimen was Collected: 03:20
01/14/24 03:46
HYDROmorphone [Dilaudid] 0.5 mg IV NOW STA
Ondansetron Injectable [Zofran] 4 mg IV NOW STA
01/14/24 03:53
Lactated Ringers [Lr] 1,000 ml IV BOLUS
01/14/24 05:48
Admit/Transfer Patient As Directed
Co-Sign Provider:
Level of Care: Inpatient admission
Assign to:: Medical/Surgical
Physician / Group: Tulio
Diagnosis: Pancreatitis
Reason for Hospitalization: Pancreatitis
Expected length of stay greater than two midnights?: Yes
ELOS- Estimated Length of Stay in days: 4
I certify the patient meets the requirements for IP care: Yes
HYDROmorphone [Dilaudid] 0.5 mg IV NOW STA
PRN Pain Medication Management As Directed
May give lesser potent ordered pain med per pt: Yes
preference::
Protocol:: Medication orders for pain may be administered in a
manner that supports deferring to patient preference
when the pt is:
- Requesting an ordered lesser potent pain medication.
Least to most potent pain medications are defined
as: acetaminophen < NSAID < tramadol < opioids
(morphine, oxycodone, hydromorphone).
- Requesting a lesser dose of the same medication IF
ORDERED.
- Requesting a less intrusive route of administration
if both routes are prescribed by the provider (PO <
IV).
01/14/24 05:49
Code Status As Directed
Resuscitation Status: Full Code
Abnormal Lab Results
01/14/24
03:41
WBC 15.5 H 10^3/uL
(4.8-10.8)
RBC 3.65 L 10^6/uL
(4.70-6.10)
Hgb 10.8 L g/dL
(13.0-18.0)
Hct 31.2 L %
(39.0-52.0)
RDW 14.6 H %
(11.5-14.5)
Abs Immat Gran (auto) 0.3 H 10^3/uL
(0-0.05)
Absolute Neuts (auto) 12.7 H 10^3/uL
(1.4-6.5)
Absolute Lymphs (auto) 0.9 L 10^3/uL
(1.2-3.4)
Absolute Monos (auto) 1.4 H 10^3/uL
(0.1-0.6)
Immature Gran % 1.7 H %
(0-0.5)
Neutrophils % 82.3 H %
(42.2-75.2)
Lymphocytes % 5.8 L %
(20.5-51.1)
Chloride 111 H mmol/L
(98-107)
BUN 21 H mg/dl
(9-20)
Glucose 162 H mg/dl
(70-99)
Calcium 7.8 L mg/dl
(8.4-10.2)
ALT 73 H U/L
(0-50)
Total Protein 5.3 L g/dl
(6.3-8.2)
Albumin 2.7 L g/dl
(3.5-5.0)
Lipase 331 H U/L
(23-300)
Urine Urobilinogen 4+ A
(Neg - 1+)
01/14/24 03:41
01/14/24 03:41
Vital Signs
Initial and Last Documented VS:
Initial Vital Signs
Temp Pulse Resp Pulse Ox
99.1 F 74 26 96
01/14/24 02:13 01/14/24 02:13 01/14/24 02:13 01/14/24 02:13
Last Documented Vital Signs
Temp Pulse Resp Pulse Ox
99.1 F 74 26 96
01/14/24 02:13 01/14/24 02:13 01/14/24 02:13 01/14/24 02:13
<BOLIVAR Page - Last Filed: 01/14/24 06:13>
MDM/Problems Addressed
Differential Diagnosis Includes:
Pancreatitis, pyelonephritis, urinary tract infection, unspecified peritonitis, nephrolithiasis, Ruptured renal cyst
<Phil Garnica DO - Last Filed: 01/14/24 05:16>
*Radiology
Radiology exam reviewed: radiology read reviewed
*Pulse Oximetry
Patient hypoxic: no
*Critical Care Note
Total Time (30-74mins, 75-104mins- exclusive of procedures): Not Applicable
<Phil Garnica DO - Last Filed: 01/14/24 05:16>
Update Note
Update Note:
CT ABDOMEN AND PELVIS WITH IV CONTRAST
IMPRESSION
Compared to 01/06/2024
Severe inflammatory stranding surrounding the pancreas compatible with pancreatitis. No pseudocyst. No necrosis. Mild free fluid in the abdomen and pelvis.Splenic artery and vein are patent.
Cholecystectomy
Numerous probable renal cysts, some slightly dense and may reflect blood products/hemorrhage no definite solid lesion. Nonobstructing stones in the kidneys bilaterally.
Normal appendix. Diverticulosis. Mild to moderate enlargement the prostate with a heterogeneous prostate, nonspecific.
Small bilateral pleural effusions.
ED Attending Note
<BOLIVAR Page - Last Filed: 01/14/24 06:13>
-
Portions of this chart may have been created with voice recognition software.� Occasional wrong word or��sound alike� substitutions may have occurred due to the inherent limitations of voice recognition software.
<Phil Garnica DO - Last Filed: 01/14/24 05:16>
ED Attending Note
Patient seen and examined by attending physician: Yes
I performed the substantive portion of visit, reviewed & personally made and approve the management plan that is documented in note by myself or OLESYA.: Yes
ED Attending Note:
Pleasant 73-year-old male presents to the emergency department with abdominal distention and bilateral flank pain. Patient states that his distention began approximately 1 week ago. Last Wednesday he developed distention. He was seen in the
emergency department and it was determined that he needed an ERCP. He subsequently developed pancreatitis and was admitted to [facility] to be discharged 2 days ago. He states that it he developed localized left flank pain without
radiation to his groin. He did develop right-sided pain that was similar in location. Patient has had kidney stones in the past. Patient was seen in conjunction with the PA student. I have reviewed and agree with the history and treatment plan
presented. On my independent physical exam, patient is awake, alert, and oriented x3, moderate acute distress. Abdomen distended with diffuse tenderness to palpation. Normal bowel sounds throughout. Skin is warm and dry moves all 4 extremities.
Heart is regular rate and rhythm. Lungs are clear to auscultation bilaterally.
Plan is CT scan of the abdomen pelvis
Discharge Plan
Departure
Patient Disposition: Admit
Date of Disposition: 01/14/24
Time of Disposition: 05:15
Admit to: Telemetry
Presentation/result/management discussed w/ accepting MD/DO: Hospitalist
Discharge Problem:
Severe acute pancreatitis
Prescriptions:
No Action
latanoprost 0.005 % Drops
1 drp RIGHT EYE HS
aspirin 81 mg Tablet,Delayed Release (Dr/Ec)
81 mg PO QPM
metformin 500 mg Tablet Extended Release 24 Hr
500 mg PO BID
rosuvastatin [Crestor] 10 mg Tablet
10 mg PO QPM
fenofibrate nanocrystallized [Tricor] 145 mg Tablet
145 mg PO HS
Glucosamine Chondroitin 550-30-1 mg Capsule
1 cap PO QPM
Referrals:
Eric Guerin MD [Family Provider] -
Interventions
Interventions:
*Risk Screen - Suicide Last Done: 01/14/24 02:13
*General Assessment Last Done: 01/14/24 02:13
*Neglect/Abuse Screening Last Done: 01/14/24 02:13
ED- Fall Risk Assessment Last Done: 01/14/24 02:13
*ED COVID-19 Vaccine History Last Done: 01/14/24 02:22
PL-Etoczx-Oohahwkpda Assessment Last Done: 01/14/24 03:20
ED-Male Genitourinary Assessment Last Done: 01/14/24 03:28
Discharge Date and Time
Print Language: CHINESE
[2024-01-14 03:29] VITALS: BMI 28.8
[2024-01-14 03:51] LABS: Urine Albumin Trace (Neg - Trace); Urine Bilirubin Negative (Negative); Urine Character Clear (Clear); Urine Color Yellow; Urine Glucose Negative (Negative); Urine Ketone Negative (Negative); Urine Leukocyte Negative (Negative); Urine Nitrite Negative (Negative); Urine Occult Blood Negative (Negative); Urine Urobilinogen 4+ (Neg - 1+)
[2024-01-14] MEDS: LR 1000 IV ×4 (03:57→22:28)
[2024-01-14] MEDS: ZOFRAN 4 MG IV (03:58)
[2024-01-14 04:00] LABS: % Basophils 0.3 % (0-2); % Eosinophils 0.6 % (0-6); % Immature Granulocytes 1.7 % (0-0.5); % Lymphocytes 5.8 % (20.5-51.1); % Monocytes 9.3 % (1.7-9.3); % Neutrophils 82.3 % (42.2-75.2); Absolute Basophils 0.1 10^3/uL (0-0.2); Absolute Eosinophils 0.1 10^3/uL (0-0.7); Absolute Immature Granulocytes 0.3 10^3/uL (0-0.05); Absolute Lymphocytes 0.9 10^3/uL (1.2-3.4); Absolute Monocytes 1.4 10^3/uL (0.1-0.6); Absolute Neutrophils 12.7 10^3/uL (1.4-6.5); Hematocrit 31.2 % (39.0-52.0); Hemoglobin 10.8 g/dL (13.0-18.0); Mean Corp Hgb Conc. 34.6 g/dL (33.0-37.0); Mean Corpuscular Hgb 29.6 pg (27.0-31.0); Mean Corpuscular Volume 85.5 fL (80.0-94.0); Mean Platelet Volume 9.9 fL (7.4-10.4); Nucleated Red Blood Cells % 0 % (-); Platelet Count 255 10^3/uL (130-400); Red Blood Cell Count 3.65 10^6/uL (4.70-6.10); Red Cell Dist. Width 14.6 % (11.5-14.5); White Blood Cell Count 15.5 10^3/uL (4.8-10.8)
[2024-01-14] MEDS: DILAUDID 0.5 MG IV ×6 (04:00→19:35)
[2024-01-14 04:06] LABS: Lactic Acid 1.1 mmol/L (0.7-2.0)
[2024-01-14 04:22] LABS: ALT (SGPT) 73 U/L (0-50); AST (SGOT) 38 U/L (17-59); Albumin 2.7 g/dl (3.5-5.0); Alkaline Phosphatase 41 U/L (38-126); Blood Urea Nitrogen 21 mg/dl (9-20); Calcium 7.8 mg/dl (8.4-10.2); Carbon Dioxide 23 mmol/L (22-30); Chloride 111 mmol/L (98-107); Estimated Creatinine Clearance 80 ml/min; Glucose 162 mg/dl (70-99); Lipase 331 U/L (23-300); Potassium 3.9 mmol/L (3.5-5.1); Sodium 141 mmol/L (135-145); Total Bilirubin 1.1 mg/dl (0.2-1.3); Total Protein 5.3 g/dl (6.3-8.2); eGFR > 60.00
--- NOTE | 2024-01-14 05:53 | HPS.HSE ---
Family Physician
-
Family Physician: Eric Guerin
Chief Complaint
-
Abd Pain
History of Present Illness
Patient is a 73y M with PMH significant for DM-II and recent CBD stone who presents to ED complaining of abdominal pain. Patient initially underwent cholecystectomy on 11/06/23. He developed recurrent symptoms that were identical on 01/05/24.
He was admitted and found to have retained distal CBD stone. He underwent ERCP on 01/05; however, the CBD could not be cannulated. Patient was transferred to [facility] on 01/08 and underwent repeat ERCP on 01/09 with stone removal and
sphincterotomy.
Patient states that he ate small amounts of clear liquids - but noted abdominal distention and discomfort that seemed worse after doing so.
He was discharged to home on 01/12/24.
He states that his symptoms of abdominal distention and post-prandial pain have persisted.
He has been unable to tolerate even small amounts of liquids / soft foods without severe abdominal pain.
He denies any N/V. No fevers / chills.
No diarrhea, bloody stools, etc.
Patient returned to the ED this evening for further evaluation.
Medical History
Past Medical History
Past Medical History: Reports Other
Additional Past Medical History:
DM-II
CKD III
Nephrolithiasis
GERD
Glaucoma
Past Surgical History: Reports Other
Additional Past Surgical History:
Cholecystectomy with IOC (11/06/23)
ERCP with Failed CBD Cannulation (01/06/24)
ERCP with Stone Retrieval and Sphincterotomy (01/10/24)
Hernia Repair
R Knee Arthroscopy
T&A
Cataracts
Eye Surgeries
Social History
Tobacco: Former Smoker (Quit smoking 26y ago. Approx 30 pack years total.)
Alcohol: Occasional
Drug: None
Personal:
Living: With Family
Family History
Family History: Other (Mother: Colon Cancer)
Allergies / Home Medications
Allergies reflects when Allergies were last updated in [employer].
Home Medications with original date entered in [employer]
Allergy/Medication List:
Allergies
Allergy/AdvReac Type Severity Reaction Status Date / Time
No Known Allergies Allergy Verified 01/14/24 02:13
Home Medications
aspirin 81 mg tablet,delayed release 81 mg PO QPM Blood Clot Prevention/Tx 04/13/23
fenofibrate nanocrystallized 145 mg tablet (Tricor) 145 mg PO HS High Cholesterol 04/13/23
glucosamine sulf dipot chlr,msm,chond 550 mg-C 30 mg-edd 1 mg capsule (Glucosamine Chondroitin) 1 cap PO QPM Supplement 04/13/23
latanoprost 0.005 % eye drops 1 drp RIGHT EYE HS Eye Condition 04/13/23
metformin 500 mg tablet,extended release 24 hr 500 mg PO BID Diabetes 04/13/23
rosuvastatin 10 mg tablet (Crestor) 10 mg PO QPM High Cholesterol 04/13/23
Review of Systems
-
History Source: Patient
A 12 point ROS was completed and negative except as noted: Yes
Constitutional: Denies Fever or Chills
Respiratory: Denies Cough or Trouble Breathing
Cardiac: Denies Chest Pain or Palpitations
Abdomen/GI: Reports Abdominal Pain; Denies Nausea, Vomiting or Diarrhea
: Denies Dysuria, Frequency or Flank Pain
Neurological: Denies Dizzy or Headache
Psych: Denies Depression or Anxiety
Physical Exam
Vital Signs
Vital Signs
Temp Pulse Resp Pulse Ox
99.1 F 74 26 96
01/14/24 02:13 01/14/24 02:13 01/14/24 02:13 01/14/24 02:13
Physical Exam
General: Other (73y M in mild distress due to abdominal pain.)
HEENT: Moist mucous membranes
Respiratory: Clear; No Wheezes, Rales or Rhonchi
Cardiac: S1/S2 and Regular Rhythm; No Murmur
GI: Other (Distended / tympanic. Bowel sounds are diminished. Pos epigastric tenderness without guarding.)
Musculoskeletal: No Clubbing, No Cyanosis and No Edema
Neuro: AO x 3
Laboratory Results
-
01/14/24 03:41
01/14/24 03:41
Laboratory Results
Lactic Acid Cancelled 01/14/24 07:45
Total Bilirubin 1.1 mg/dl (0.2-1.3) 01/14/24 03:41
AST 38 U/L (17-59) 01/14/24 03:41
ALT 73 U/L (0-50) H 01/14/24 03:41
Alkaline Phosphatase 41 U/L (38-126) 01/14/24 03:41
Lipase 331 U/L (23-300) H 01/14/24 03:41
Impression/Plan
-
A/P: Patient is a 73y M with PMH significant for DM-II and recent CBD stone who presents to ED complaining of abdominal pain.
Post-ERCP Pancreatitis
Recent CBD Stone s/p ERCP and Sphincterotomy
- Admit for further evaluation and treatment.
- Patient underwent ERCP x 2 on 01/05 and 01/09.
- Now with post-prandial pain and CT showing severe peripancreatic inflammation.
- No evidence of necrosis, pseudocyst, etc.
- NPO, IVFs, pain control, etc.
- GI evaluation for additional recommendations.
- Follow for clinical improvement and gradually advance diet as able.
DM-II
- Stable. Hold PO medications acutely.
- Follow glucose and cover with SSI as needed.
- Update A1C.
CKD III
- Stable. Renal function is better than known baseline.
- Follow for any changes.
DVT Prophylaxis: SCDs
Code Status: Full
[2024-01-14 07:00] VITALS: BP 147/83
[2024-01-14 07:17] VITALS: BP 147/83
[2024-01-14 08:05] VITALS: BP 152/87
[2024-01-14 08:15] VITALS: BMI 28.7
[2024-01-14] MEDS: PROTONIX IV 40 MG IV (08:26)
[2024-01-14] MEDS: NSS (PRESERVATIVE FREE) 10 ML IV (08:26)
--- NOTE | 2024-01-14 08:58 | W.PN.HOSP.TC ---
Today's Communication/Plan
-
NPO, IVF, pain control
Assessment / Plan
Assessment / Plan
Patient is a 73y M with PMH significant for DM-II and recent CBD stone who presents to ED complaining of abdominal pain. Patient initially underwent cholecystectomy on 11/06/23. He developed recurrent symptoms that were identical on 01/05/24.
He was admitted and found to have retained distal CBD stone. He underwent ERCP on 01/05; however, the CBD could not be cannulated. Patient was transferred to [facility] on 01/08 and underwent repeat ERCP on 01/09 with stone removal and
sphincterotomy.
Post-ERCP Pancreatitis
Recent CBD Stone s/p ERCP and Sphincterotomy
- Patient underwent ERCP x 2 on 01/05 and 01/09.
- Now with post-prandial pain and CT showing severe peripancreatic inflammation.
- No evidence of necrosis, pseudocyst. + mild free fluid
- NPO, IVFs, pain control
- GI evaluation for additional recommendations.
DM-II
- Stable. Hold PO medications acutely.
- Follow glucose and cover with SSI as needed.
- Update A1C.
CKD III
- Stable. Renal function is better than known baseline.
- Follow for any changes.
DVT Prophylaxis: lovenox subQ
Code Status: Full
Anticipated Discharge: > 48 hours
Subjective/Interval History
-
Date of Service: January 14, 2024
continues to feel bloated
Objective Data
-
Labs:
Laboratory Results
01/14/24
03:41
WBC 15.5 H
Hgb 10.8 L
Hct 31.2 L
Plt Count 255 D
Sodium 141
Potassium 3.9
Chloride 111 H
Carbon Dioxide 23
BUN 21 H
Creatinine 0.8
Glucose 162 H
Calcium 7.8 L
Total Bilirubin 1.1
AST 38
ALT 73 H
Alkaline Phosphatase 41
Vital Signs:
Vital Signs
Temp Pulse Resp BP Pulse Ox
98.7 F 80 18 152/87 98
01/14/24 08:05 01/14/24 08:05 01/14/24 08:05 01/14/24 08:05 01/14/24 08:05
Review of Systems
-
History Source: Patient
All other systems: Reviewed and negative
Physical Exam
-
General: Well Nourished and No Apparent Distress
Respiratory: Clear to Auscultation and Non Labored Respirations; Negative Accessory Resp Muscle Use
Cardiac: Regular Rhythm and S1/S2; Negative Murmur, Rub or Gallop
GI: Other (distended, tender mid-epigastric region, no rebound or guarding )
Musculoskeletal: No Clubbing, No Cyanosis and No Edema
Skin: Warm and Dry; Negative Rash or Jaundice
Neuro: AO x 3, Nonfocal/Grossly Intact and Central Nerve's Intact
Psych: Calm
Data Reviewed
-
Diagnostic Radiology: Report Reviewed by me
Labs: Labs Reviewed by me
--- NOTE | 2024-01-14 12:04 | CON.GI ---
Addendum entered and electronically signed by Dakota Gorman DO 01/14/24 17:08:
I saw and examined the patient.
The CHIN [employer] MAKER's note was reviewed and I agree with the note.
Comment: Mr Pollock is a 73 y.o male with pmh of DM 2, CKD III, nephrolithiasis, GERD, glaucoma, choledocholithiasis (s/p ERCP 01/05 but difficulty with cannulation with subsequent repeat ERCP at [place] 01/10/24 with ES and balloon extraction
with stone removal) who presented to the ED with epigastric abdominal pain. Notes previous upper abdominal pain after his second ERCP at [facility], but became much worse prompting him to come to the ED. LFTs improved without evidence of biliary
obstruction with lipase 331 meeting criteria for post-ERCP pancreatitis. Leukocytosis also noted but likely reactive. CT Abd/pelvis 01/14/2024 with extensive peripancreatic edema with severe associated edema and inflammatory stranding in the
mesentery, splenic hilum and along the greater curvature of the stomach in a pattern most suggestive of acute pancreatitis. Etiology consistent with mild-PEP and appears to be improving with ongoing IV fluids without other complications (ie
necrosis, bharati-pancreatic fluid collection, leak, etc).
Recommendations:
- May start trial of CLD once pain starts improving
- IV LR for 24 hrs for volume expansion
- No indication in trending lipase, continue to monitor with serial abdominal exams
- Trend leukocytosis, if rising would consider obtaining blood cultures but would defer IV abx
- Start bowel regimen with miralax BiD opioid-induced constipation
- Pain control and IV anti-emetics PRN
- Observe clinical course, hopeful for improvement in next 24-48 hrs
- Rest of care as outlined below
GI team will continue to follow while inpatient.
Thank you for allowing me to participate in the care of this patient. Please do not hesitate to call for any further questions.
Original Note:
Consultation
-
Date/Time Consultation Requested: 01/14/24 2418
Date/Time Consultation Performed: 01/14/24 1204
Requesting Provider: Dr. Antunez
Performing Provider: Dr. Gorman/CALI Rodriguez
Reason for Consultation: Pancreatitis
Medical History
Chief Complaint / HPI
Chief Complaint: Abdominal pain
History of Present Illness:
73 years old male with a past medical history of DM 2, CKD III, nephrolithiasis, GERD, glaucoma, gallbladder stone distal bile duct who had an ERCP on 01/06/2024 that showed no bile drainage and inability to cannulate the bile duct. The patient was
transferred to [place] for repeat ERCP. The patient was transferred to [place] on 01/09/2024 and he had his repeat ERCP performed with sphincterotomy and stone removal on 01/10/2024 the patient states that the majority of his pain resolved
after his ERCP at [facility] however he did have a slight discomfort that was periumbilical post ERCP. He was allowed to eat and drink immediately after. He states he started with things such as clear liquids with advancement to foods such as
yogurt, Cheerios with milk as well as fruit. He was discharged to home on 01/12/2024. He states that he went home and ate [place], canned fruit and had significant abdominal discomfort which she describes as burning in nature in the periumbilical
area. This was nonradiating because of persistence and level of pain he proceeded to come to the emergency room. The patient denies any fevers, chills, nausea, vomiting, melena, hematochezia, dysphagia or dyne aphasia. No early satiety or
unintentional weight loss. He states his last bowel movement was a day before last. His urine is normal color. He states his pain is slightly improved as he can increase the duration between IV analgesia.
Past Medical History
Past Medical History: GERD, NIDDM and Other (CKD III, Nephrolithiasis, Glaucoma)
Past Surgical History: Other ( Cholecystectomy with IOC (11/06/23) Hernia Repair R Knee Arthroscopy T&A Cataracts Eye Surgeries)
Social History
Tobacco: Former Smoker (Quit smoking 26y ago. Approx 30 pack years total.)
Alcohol: Occasional
Drug: None
Personal:
Family History
Family History: Other (Mother: Colon Cancer)
Allergies / Home Medications
Allergy/AdvReac Type Severity Reaction Status Date / Time
No Known Allergies Allergy Verified 01/14/24 02:13
�Medication �Instructions �Recorded
aspirin 81 mg tablet,delayed 81 mg PO QPM Blood Clot 04/13/23
release Prevention/Tx
fenofibrate nanocrystallized 145 145 mg PO HS High Cholesterol 04/13/23
mg tablet (Tricor)
glucosamine sulf dipot 1 cap PO QPM Supplement 04/13/23
chlr,msm,chond 550 mg-C 30 mg-edd
1 mg capsule (Glucosamine
Chondroitin)
latanoprost 0.005 % eye drops 1 drp RIGHT EYE HS Eye Condition 04/13/23
metformin 500 mg tablet,extended 500 mg PO BID Diabetes 04/13/23
release 24 hr
rosuvastatin 10 mg tablet (Crestor) 10 mg PO QPM High Cholesterol 04/13/23
oxycodone 5 mg tablet 5 mg PO Q6HPRN PRN severe pains 01/14/24
Review of Systems
-
All other systems: A 12 pt ROS was Negative except as stated above in HPI
Vital Signs
Temp Pulse Resp BP Pulse Ox
98.7 F 80 18 152/87 98
01/14/24 08:05 01/14/24 08:05 01/14/24 08:05 01/14/24 08:05 01/14/24 08:05
Physical Exam
Exam
General: No Apparent Distress
HEENT: Anicteric
Respiratory: Clear (Decreased bases bilaterally)
Cardiac: Regular Rhythm
GI: Soft, Non Distended, Normal Bowel Sounds (Slightly hypoactive) and Tender (Mild periumbilical tenderness)
Musculoskeletal: No Edema
Skin: Warm and Dry
Neuro: AO x 3
Psych: Calm
Results
WBC 15.5 10^3/uL (4.8-10.8) H 01/14/24 03:41
Hgb 10.8 g/dL (13.0-18.0) L 01/14/24 03:41
Hct 31.2 % (39.0-52.0) L 01/14/24 03:41
MCV 85.5 fL (80.0-94.0) 01/14/24 03:41
Plt Count 255 10^3/uL (130-400) D 01/14/24 03:41
Absolute Neuts (auto) 12.7 10^3/uL (1.4-6.5) H 01/14/24 03:41
Sodium 141 mmol/L (135-145) 01/14/24 03:41
Potassium 3.9 mmol/L (3.5-5.1) 01/14/24 03:41
Chloride 111 mmol/L (98-107) H 01/14/24 03:41
Carbon Dioxide 23 mmol/L (22-30) 01/14/24 03:41
BUN 21 mg/dl (9-20) H 01/14/24 03:41
Creatinine 0.8 mg/dL (0.7-1.3) 01/14/24 03:41
Calcium 7.8 mg/dl (8.4-10.2) L 01/14/24 03:41
Total Bilirubin 1.1 mg/dl (0.2-1.3) 01/14/24 03:41
AST 38 U/L (17-59) 01/14/24 03:41
ALT 73 U/L (0-50) H 01/14/24 03:41
Alkaline Phosphatase 41 U/L (38-126) 01/14/24 03:41
Lipase 331 U/L (23-300) H 01/14/24 03:41
Diagnostic Image Results:
CT abdomen and pelvis with IV contrast:
1).There is extensive peripancreatic edema with severe associated edema and inflammatory stranding in the mesentery, splenic hilum and along the greater curvature of the stomach in a pattern most suggestive of acute pancreatitis.
Correlation with the patient's serum amylase and lipase is recommended
2). There is a small amount of ascites around the liver
3). There are minimal right and small left pleural effusions with associated compressive atelectasis at lung bases
4). Cholecystectomy
5). Multiple bilateral renal cysts measuring up to 4.6 cm
7). Diverticuli are present in the colon with no CT evidence of diverticulitis
8). Prostatomegaly
Electronically signed by Marquis Ayala MD, 01/14/2024 10:46 AM
Prior GI Procedures:
EGD:
Colonoscopy: Impression: - Diverticulosis in the sigmoid colon and in the
descending colon.
- The examination was otherwise normal.
- The distal rectum and anal verge are normal on
retroflexion view.
- No specimens collected.
Recommendation: - Repeat colonoscopy in 5 years for surveillance.
ERCP 01/06/2024 ([facility]) - Small hiatal hernia.
- A small amount of food (residue) in the stomach.
- J shaped stomach was noted
- Gastritis with erosions.
- The major papilla appeared to be bulging/ congested.
Multiple attempts were made to deeply cannulate bile
duct but unsuccessful.
ERCP with sphincterotomy and stone extraction with balloon [facility] 01/10/2024 record unavailable to me
Assessment / Plan
-
73 years old male with a past medical history of DM 2, CKD III, nephrolithiasis, GERD, glaucoma, gallbladder stone distal bile duct who had an ERCP on 01/06/2024 that showed no bile drainage and inability to cannulate the bile duct. The patient was
transferred to [place] for repeat ERCP. The patient was transferred to [facility] on 01/09/2024 and he had his repeat ERCP performed with sphincterotomy and stone removal on 01/10/2024 the patient states that the majority of his pain resolved
after his ERCP at [facility] however he did have a slight discomfort that was periumbilical post ERCP. He was allowed to eat and drink immediately after. He states he started with things such as clear liquids with advancement to foods such as
yogurt, Cheerios with milk as well as fruit. He was discharged to home on 01/12/2024. The patient presents with increased pain as well as CT imaging showing pancreatitis. WBC 15.5, hemoglobin 10.8, hematocrit 31.2, platelets 255, sodium 141,
potassium 3.9, BUN 21, creatinine 0.8, glucose 162, calcium 7.8, total bilirubin 1.1 (down from 7.6), AST 38, ALT 73, alk phos 41, albumin 2.7, lipase 331.
Impression:
Pancreatitis
Status post ERCP with sphincterotomy and balloon extraction 01/10/2024 (performed at [facility], records unavailable to me)
Plan:
-IV fluids
-Analgesia
-N.p.o. except p.o. meds, advance to clears as pain decreases
-Incentive spirometer, advised patient on usage
-Trend CBC, CMP
-The recommendations to be forthcoming
-
-
Thank you for consultation and allowing me to participate in the patient's care. Please call the cosmetic surgeon GI physician during the after hours with any questions or concerns.
[2024-01-14 12:05] LABS: Glucose - Point of Care 118 mg/dl (70-99)
[2024-01-14 16:00] VITALS: BP 157/80
[2024-01-14 18:11] LABS: Glucose - Point of Care 125 mg/dl (70-99)
[2024-01-14] MEDS: LOVENOX 40 MG SC (18:11)
[2024-01-14] MEDS: MIRALAX 17 GRAMS PO (19:40)
[2024-01-14] MEDS: XALATAN OPHTHALMIC SOLUTION 1 DROP RIGHT EYE (21:21)
[2024-01-14 23:59] VITALS: BP 156/84
[2024-01-15 00:09] LABS: Glucose - Point of Care 133 mg/dl (70-99)
[2024-01-15] MEDS: DILAUDID 0.5 MG IV ×2 (00:14→04:23)
[2024-01-15] MEDS: LR 1000 IV ×2 (05:05→12:14)
[2024-01-15 06:16] LABS: Glucose - Point of Care 124 mg/dl (70-99)
[2024-01-15 07:14] LABS: Hematocrit 29.2 % (39.0-52.0); Hemoglobin 9.9 g/dL (13.0-18.0); Mean Corp Hgb Conc. 33.9 g/dL (33.0-37.0); Mean Corpuscular Hgb 29.2 pg (27.0-31.0); Mean Corpuscular Volume 86.1 fL (80.0-94.0); Mean Platelet Volume 10.1 fL (7.4-10.4); Platelet Count 283 10^3/uL (130-400); Red Blood Cell Count 3.39 10^6/uL (4.70-6.10); Red Cell Dist. Width 14.8 % (11.5-14.5); White Blood Cell Count 20.4 10^3/uL (4.8-10.8)
[2024-01-15 07:43] VITALS: BP 163/81
[2024-01-15 07:55] LABS: ALT (SGPT) 52 U/L (0-50); AST (SGOT) 38 U/L (17-59); Albumin 2.6 g/dl (3.5-5.0); Alkaline Phosphatase 46 U/L (38-126); Blood Urea Nitrogen 18 mg/dl (9-20); Calcium 7.9 mg/dl (8.4-10.2); Carbon Dioxide 23 mmol/L (22-30); Chloride 108 mmol/L (98-107); Direct Bilirubin 0.6 mg/dl (0.0-0.4); Estimated Creatinine Clearance 80 ml/min; Glucose 138 mg/dl (70-99); Lipase 284 U/L (23-300); Potassium 4.1 mmol/L (3.5-5.1); Sodium 140 mmol/L (135-145); eGFR > 60.00
[2024-01-15] MEDS: NSS (PRESERVATIVE FREE) 10 ML IV (08:16)
[2024-01-15] MEDS: PROTONIX IV 40 MG IV (08:19)
[2024-01-15] MEDS: MIRALAX PO ×2 (08:32→21:03)
[2024-01-15 09:04] LABS: Glycohemoglobin (HgbA1c) 6.3 % (4.0-5.6)
--- NOTE | 2024-01-15 09:38 | W.PN.HOSP.TC ---
Today's Communication/Plan
-
clears
Assessment / Plan
Assessment / Plan
Patient is a 73y M with PMH significant for DM-II and recent CBD stone who presents to ED complaining of abdominal pain. Patient initially underwent cholecystectomy on 11/06/23. He developed recurrent symptoms that were identical on 01/05/24.
He was admitted and found to have retained distal CBD stone. He underwent ERCP on 01/05; however, the CBD could not be cannulated. Patient was transferred to [facility] on 01/08 and underwent repeat ERCP on 01/09 with stone removal and
sphincterotomy.
Post-ERCP Pancreatitis
Recent CBD Stone s/p ERCP and Sphincterotomy
- Patient underwent ERCP x 2 on 01/05 and 01/09.
- Now with post-prandial pain and CT showing severe peripancreatic inflammation.
- No evidence of necrosis, pseudocyst. + mild free fluid
- appreciate GI
- pain improving this morning --> OK for clears
- decrease rate of fluids
DM-II
- Stable. Hold PO medications acutely.
- Follow glucose and cover with SSI as needed.
- Update A1C.
CKD III
- Stable. Renal function is better than known baseline.
- Follow for any changes.
DVT Prophylaxis: lovenox subQ
Code Status: Full
Anticipated Discharge: 24 - 48 hours
Subjective/Interval History
-
Date of Service: January 15, 2024
feeling better today
about to order clears
had a BM still feels mildly bloated
Objective Data
-
Labs:
Laboratory Results
01/15/24 01/15/24
06:33 06:34
WBC 20.4 H
Hgb 9.9 L
Hct 29.2 L
Plt Count 283
Sodium 140
Potassium 4.1
Chloride 108 H
Carbon Dioxide 23
BUN 18
Creatinine 0.8
Glucose 138 H
Calcium 7.9 L
Total Bilirubin 1.0
AST 38
ALT 52 H
Alkaline Phosphatase 46
Vital Signs:
Vital Signs
Temp Pulse Resp BP Pulse Ox
98.4 F 80 16 163/81 97
01/15/24 07:43 01/15/24 07:43 01/15/24 07:43 01/15/24 07:43 01/15/24 07:43
I&O
01/14/24 01/15/24 01/16/24
06:59 06:59 05:59
Intake Total 3360 / 3360
Balance 3360 / 3360
Review of Systems
-
History Source: Patient
All other systems: Reviewed and negative
Physical Exam
-
General: Well Nourished and No Apparent Distress
Respiratory: Clear to Auscultation and Non Labored Respirations; Negative Accessory Resp Muscle Use
Cardiac: Regular Rhythm and S1/S2; Negative Murmur, Rub or Gallop
GI: Other (non-tender, mildly distended, no rebound or guarding )
Musculoskeletal: No Clubbing, No Cyanosis and No Edema
Skin: Warm and Dry; Negative Rash or Jaundice
Neuro: AO x 3, Nonfocal/Grossly Intact and Central Nerve's Intact
Psych: Calm
Data Reviewed
-
Diagnostic Radiology: Report Reviewed by me
Labs: Labs Reviewed by me
--- NOTE | 2024-01-15 10:12 | W.PN.GI.CBS2 ---
Today's Communication / Plan
-
Trial CLD today, if tolerating p.o intake may stop IVF later this afternoon. Appears to be improving overall, continue to monitor clinical course and bowel function. Rest as outlined below.
Assessment / Plan
-
Mr Pollock is a 73 y.o male with pmh of DM 2, CKD III, nephrolithiasis, GERD, glaucoma, choledocholithiasis (s/p ERCP 01/05 but difficulty with cannulation with subsequent repeat ERCP at [place] 01/10/24 with ES and balloon extraction with stone
removal) who presented to the ED with epigastric abdominal pain. Notes previous upper abdominal pain after his second ERCP at [place], but became much worse prompting him to come to the ED. LFTs improved without evidence of biliary obstruction
with lipase 331 meeting criteria for post-ERCP pancreatitis. Leukocytosis also noted but likely reactive. CT Abd/pelvis 01/14/2024 with extensive peripancreatic edema with severe associated edema and inflammatory stranding in the mesentery, splenic
hilum and along the greater curvature of the stomach in a pattern most suggestive of acute pancreatitis. Etiology consistent with mild-PEP and appears to be improving with ongoing IV fluids without other complications (ie necrosis, bharati-pancreatic
fluid collection, leak, etc).
#Post-ERCP Pancreatitis- Improving
Recommendations:
- Start CLD this AM, may advance slowly as tolerated to low-fat diet as patient tolerates
- May stop IV fluids if tolerating p.o intake today
- No indication in trending lipase, continue to monitor with serial abdominal exams
- Having bowel function, continue Miralax 17 gm BiD
- Leukocytosis trending but likely reactive, would continue to hold IV abx
- Continue bowel regimen with miralax BiD for ileus prevention and prevention of opioid-induced constipation
- Pain control and IV anti-emetics PRN
- Observe clinical course, hopeful for improvement in next 24-48 hrs
- Rest of care as outlined below
Discussed with primary internal medicine team this AM. GI will continue to follow.
Subjective
Subjective
Date of Service: January 15, 2024
- No acute events overnight
- Still with leukocytosis but remains afebrile
Feeling much better this AM, less abdominal pain. Passing flatus with passage of one small BM this morning. Hungry, hoping to eat. Otherwise, no fevers/chills or other constitutional symptoms.
Objective
Data Reviewed
Laboratory Data:
Laboratory Results
01/15/24 06:33
01/15/24 06:34
Laboratory Results
Total Bilirubin 1.0 mg/dl (0.2-1.3) 01/15/24 06:34
AST 38 U/L (17-59) 01/15/24 06:34
ALT 52 U/L (0-50) H 01/15/24 06:34
Alkaline Phosphatase 46 U/L (38-126) 01/15/24 06:34
Lipase 284 U/L (23-300) 01/15/24 06:34
Vital Signs and I&O:
Vital Signs
Temp Pulse Resp BP Pulse Ox
98.4 F 80 16 163/81 97
01/15/24 07:43 01/15/24 07:43 01/15/24 07:43 01/15/24 07:43 01/15/24 07:43
I&O
01/14/24 01/15/24 01/16/24
06:59 06:59 05:59
Intake Total 3360 / 3360
Balance 3360 / 3360
Physical Exam
Physical Exam
HEENT: Anicteric and Moist mucous membranes
Cardiology: Normal Sinus Rhythm
Pulmonary: Clear
GI: Soft, Distended, Non Tender and Normal Bowel Sounds
Extremities: No Edema
Neuro: Non Focal
--- NOTE | 2024-01-15 10:39 | CM ---
Reviewed chart, met with patient to obtain information for assessment. Patient stated that he lives in a two story home with his , with two steps to enter. He described himself as independent with his ADLs, personal care, dressing and bathing.
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 He drives and can get himself to his appointments and do his own shopping.
Patient reported that he does not have any DME.
He has never had VN services.
He has not been to a SNF.
Patient has a prescription plan and uses [facility] in [place] for all of his medications.
His PCP is Dr. Eric Guerin.
Patient relayed that he feels physically he is at baseline but did admit to some weakness due to not being able to tolerate solids. Patient's diet is advancing.
Patient stated that his will transport him home when he is ready for discharge.
Plan: Case management will continue to follow and assist with discharge planning. Patient should be able to return home, no needs when medically stable.
[2024-01-15 11:42] LABS: Glucose - Point of Care 218 mg/dl (70-99)
[2024-01-15] MEDS: NOVOLOG FLEXPEN-LOW RESISTANCE 2 UNITS SC ×2 (12:12→18:02)
[2024-01-15 15:48] VITALS: BP 146/76
[2024-01-15 16:41] LABS: Glucose - Point of Care 202 mg/dl (70-99)
[2024-01-15] MEDS: LOVENOX 40 MG SC (18:02)
[2024-01-15] MEDS: LR IV (21:04)
[2024-01-15] MEDS: TYLENOL 650 MG PO (21:06)
[2024-01-15] MEDS: XALATAN OPHTHALMIC SOLUTION 1 DROP RIGHT EYE (21:07)
[2024-01-15 21:41] LABS: Glucose - Point of Care 176 mg/dl (70-99)
[2024-01-15 23:10] VITALS: BP 147/82
[2024-01-16] MEDS: DILAUDID 0.5 MG IV (01:35)
[2024-01-16 05:11] LABS: Hematocrit 27.6 % (39.0-52.0); Hemoglobin 9.4 g/dL (13.0-18.0); Mean Corp Hgb Conc. 34.1 g/dL (33.0-37.0); Mean Corpuscular Hgb 28.9 pg (27.0-31.0); Mean Corpuscular Volume 84.9 fL (80.0-94.0); Mean Platelet Volume 9.8 fL (7.4-10.4); Platelet Count 275 10^3/uL (130-400); Red Blood Cell Count 3.25 10^6/uL (4.70-6.10); Red Cell Dist. Width 14.8 % (11.5-14.5); White Blood Cell Count 21.1 10^3/uL (4.8-10.8)
[2024-01-16 05:35] LABS: ALT (SGPT) 45 U/L (0-50); AST (SGOT) 38 U/L (17-59); Albumin 2.4 g/dl (3.5-5.0); Alkaline Phosphatase 44 U/L (38-126); Blood Urea Nitrogen 18 mg/dl (9-20); Carbon Dioxide 26 mmol/L (22-30); Chloride 105 mmol/L (98-107); Estimated Creatinine Clearance 80 ml/min; Glucose 150 mg/dl (70-99); Magnesium 1.9 mg/dl (1.6-2.3); Potassium 4.2 mmol/L (3.5-5.1); Sodium 140 mmol/L (135-145); Total Bilirubin 0.8 mg/dl (0.2-1.3); Total Protein 4.7 g/dl (6.3-8.2); eGFR > 60.00
[2024-01-16] MEDS: LR IV (06:16)
[2024-01-16 06:25] LABS: % Basophils 0.5 % (0-2); % Eosinophils 0.7 % (0-6); % Immature Granulocytes 2.4 % (0-0.5); % Lymphocytes 4.6 % (20.5-51.1); % Monocytes 6.2 % (1.7-9.3); % Neutrophils 85.6 % (42.2-75.2); Absolute Basophils 0.1 10^3/uL (0-0.2); Absolute Eosinophils 0.2 10^3/uL (0-0.7); Absolute Immature Granulocytes 0.5 10^3/uL (0-0.05); Absolute Monocytes 1.3 10^3/uL (0.1-0.6); Absolute Neutrophils 18.1 10^3/uL (1.4-6.5); Nucleated Red Blood Cells % 0 % (-)
[2024-01-16 07:00] VITALS: BP 148/79
[2024-01-16 08:40] LABS: Glucose - Point of Care 190 mg/dl (70-99)
[2024-01-16] MEDS: PROTONIX IV 40 MG IV (08:40)
[2024-01-16] MEDS: MIRALAX PO (08:40)
[2024-01-16] MEDS: NOVOLOG FLEXPEN-LOW RESISTANCE 1 UNITS SC ×2 (08:40→12:20)
[2024-01-16] MEDS: NSS (PRESERVATIVE FREE) 10 ML IV (08:41)
[2024-01-16] MEDS: TYLENOL 650 MG PO (08:54)
--- NOTE | 2024-01-16 08:59 | W.PN.GI.CBS2 ---
Today's Communication / Plan
-
Tolerating low-fat diet without difficulty, less distension and improving pain without any nausea/vomiting. Having bowel function. Reasonable to d/c with outpatient f/u either later today versus tomorrow pending how patient does with lunch / this
afternoon. GI team will sign-off and recommended outpatient GI follow-up in the next few weeks. Please call back with any questions or concerns.
Assessment / Plan
-
Mr Pollock is a 73 y.o male with pmh of DM 2, CKD III, nephrolithiasis, GERD, glaucoma, choledocholithiasis (s/p ERCP 01/05 but difficulty with cannulation with subsequent repeat ERCP at [place] 01/10/24 with ES and balloon extraction with stone
removal) who presented to the ED with epigastric abdominal pain. Notes previous upper abdominal pain after his second ERCP at [place], but became much worse prompting him to come to the ED. LFTs improved without evidence of biliary obstruction
with lipase 331 meeting criteria for post-ERCP pancreatitis. Leukocytosis also noted but likely reactive. CT Abd/pelvis 01/14/2024 with extensive peripancreatic edema with severe associated edema and inflammatory stranding in the mesentery, splenic
hilum and along the greater curvature of the stomach in a pattern most suggestive of acute pancreatitis. Etiology consistent with mild-PEP and appears to be improving with ongoing IV fluids without other complications (ie necrosis, bharati-pancreatic
fluid collection, leak, etc).
#Post-ERCP Pancreatitis- Improving
Recommendations:
- Tolerating low-fat diet, advised strict low-fat diet for at least 2-3 weeks
- Continues to improve from a clinical standpoint, discussed that his discomfort will take time but improving overall
- Having bowel function, advised taking Miralax once daily or PRN
- Leukocytosis trending but likely reactive, would continue to hold IV abx given that he is without any other fevers/chills or other localizing symptoms
- Pain control and IV anti-emetics PRN
- Observe clinical course, if tolerating lunch later today reasonable to discharge later this evening versus tomorrow from GI standpoint
- Rest of care as outlined below
Discussed with primary internal medicine team this AM along with patient's . May follow-up with me as an outpatient in the next few weeks after discharge.
GI team will sign-off. Please call back with any questions or concerns.
Subjective
Subjective
Date of Service: January 16, 2024
- No acute events overnight
Tolerating low-fat diet without difficulty this AM. No nausea or vomiting. Reports improving abdominal discomfort without any pain. Having bowel movements with few loose stools overnight, less distension and passing gas. No other fevers, chills,
night sweats or other constitutional symptoms. Hoping to go home but also somewhat anxious. Discussed that this will take time but fortunately appears to be improving clinically.
Discussed with patient's , Cassandra, this AM via telephone regarding his ongoing improvement.
Objective
Data Reviewed
Laboratory Data:
Laboratory Results
01/16/24 04:05
01/16/24 04:05
Laboratory Results
Magnesium 1.9 mg/dl (1.6-2.3) 01/16/24 04:05
Total Bilirubin 0.8 mg/dl (0.2-1.3) 01/16/24 04:05
AST 38 U/L (17-59) 01/16/24 04:05
ALT 45 U/L (0-50) 01/16/24 04:05
Alkaline Phosphatase 44 U/L (38-126) 01/16/24 04:05
Lipase 284 U/L (23-300) 01/15/24 06:34
Vital Signs and I&O:
Vital Signs
Temp Pulse Resp BP Pulse Ox
98.7 F 79 18 147/82 97
01/15/24 23:10 01/15/24 23:10 01/15/24 23:10 01/15/24 23:10 01/15/24 23:10
I&O
01/15/24 01/16/24 01/17/24
07:59 06:59 06:59
Intake Total
Balance
Physical Exam
Physical Exam
HEENT: Anicteric and Moist mucous membranes
Cardiology: Normal Sinus Rhythm
Pulmonary: Clear and Other (Normal WOB on room air)
GI: Soft, Distended (Mild distension), Non Tender and Normal Bowel Sounds
Extremities: No Edema
Neuro: Non Focal
--- NOTE | 2024-01-16 09:16 | W.PN.HOSP.TC ---
Today's Communication/Plan
-
OK for DC today
Assessment / Plan
Assessment / Plan
Patient is a 73y M with PMH significant for DM-II and recent CBD stone who presents to ED complaining of abdominal pain. Patient initially underwent cholecystectomy on 11/06/23. He developed recurrent symptoms that were identical on 01/05/24.
He was admitted and found to have retained distal CBD stone. He underwent ERCP on 01/05; however, the CBD could not be cannulated. Patient was transferred to [facility] on 01/08 and underwent repeat ERCP on 01/09 with stone removal and
sphincterotomy.
Post-ERCP Pancreatitis
Recent CBD Stone s/p ERCP and Sphincterotomy
- Patient underwent ERCP x 2 on 01/05 and 01/09.
- Now with post-prandial pain and CT showing severe peripancreatic inflammation.
- No evidence of necrosis, pseudocyst. + mild free fluid
- appreciate GI
- tolerating low fat diet; OK for DC if tolerates lunch
DM-II
- Stable. Hold PO medications acutely.
- Follow glucose and cover with SSI as needed.
- Update A1C.
CKD III
- Stable. Renal function is better than known baseline.
- Follow for any changes.
DVT Prophylaxis: lovenox subQ
Code Status: Full
Anticipated Discharge: Today
Subjective/Interval History
-
Date of Service: January 16, 2024
tolerating low fat diet
some distention but improving, having BM
Objective Data
-
Labs:
Laboratory Results
01/16/24
04:05
WBC 21.1 H
Hgb 9.4 L
Hct 27.6 L
Plt Count 275
Sodium 140
Potassium 4.2
Chloride 105
Carbon Dioxide 26
BUN 18
Creatinine 0.8
Glucose 150 H
Calcium 8.0 L
Total Bilirubin 0.8
AST 38
ALT 45
Alkaline Phosphatase 44
Vital Signs:
Vital Signs
Temp Pulse Resp BP Pulse Ox
98.8 F 80 17 148/79 98
01/16/24 07:00 01/16/24 07:00 01/16/24 07:00 01/16/24 07:00 01/16/24 07:00
I&O
01/15/24 01/16/24 01/17/24
07:59 06:59 06:59
Intake Total
Balance
Review of Systems
-
History Source: Patient
All other systems: Reviewed and negative
Physical Exam
-
General: Well Nourished and No Apparent Distress
Respiratory: Clear to Auscultation and Non Labored Respirations; Negative Accessory Resp Muscle Use
Cardiac: Regular Rhythm and S1/S2; Negative Murmur, Rub or Gallop
GI: Other (non-tender, mildly distended, no rebound or guarding )
Musculoskeletal: No Clubbing, No Cyanosis and No Edema
Skin: Warm and Dry; Negative Rash or Jaundice
Neuro: AO x 3, Nonfocal/Grossly Intact and Central Nerve's Intact
Psych: Calm
Data Reviewed
-
Diagnostic Radiology: Report Reviewed by me
Labs: Labs Reviewed by me
--- NOTE | 2024-01-16 10:10 | W.PN.HOSP.TC ---
Today's Communication/Plan
-
F/U C. Diff testing
possible DC after lunch
Assessment / Plan
Assessment / Plan
Patient is a 73y M with PMH significant for DM-II and recent CBD stone who presents to ED complaining of abdominal pain. Patient initially underwent cholecystectomy on 11/06/23. He developed recurrent symptoms that were identical on 01/05/24.
He was admitted and found to have retained distal CBD stone. He underwent ERCP on 01/05; however, the CBD could not be cannulated. Patient was transferred to [facility] on 01/08 and underwent repeat ERCP on 01/09 with stone removal and
sphincterotomy.
Post-ERCP Pancreatitis
Recent CBD Stone s/p ERCP and Sphincterotomy
- Patient underwent ERCP x 2 on 01/05 and 01/09.
- Now with post-prandial pain and CT showing severe peripancreatic inflammation.
- No evidence of necrosis, pseudocyst. + mild free fluid
- appreciate GI
- tolerating low fat diet
Leukocytosis persistent - with improving clinical symptoms
-will check C. Diff with loose stools. if negative no infectious source - likely resolving stress reaction from pancreatitis and OK for DC with follow up labs
DM-II
- Stable. Hold PO medications acutely.
- Follow glucose and cover with SSI as needed.
- Update A1C.
CKD III
- Stable. Renal function is better than known baseline.
- Follow for any changes.
DVT Prophylaxis: lovenox subQ
Code Status: Full
Anticipated Discharge: Within 24 hours
Subjective/Interval History
-
Date of Service: January 16, 2024
feels mildly bloated but tolerating diet
wants to go home
having loose BM
Objective Data
-
Labs:
Laboratory Results
01/16/24
04:05
WBC 21.1 H
Hgb 9.4 L
Hct 27.6 L
Plt Count 275
Sodium 140
Potassium 4.2
Chloride 105
Carbon Dioxide 26
BUN 18
Creatinine 0.8
Glucose 150 H
Calcium 8.0 L
Total Bilirubin 0.8
AST 38
ALT 45
Alkaline Phosphatase 44
Vital Signs:
Vital Signs
Temp Pulse Resp BP Pulse Ox
98.8 F 80 17 148/79 98
01/16/24 07:00 01/16/24 07:00 01/16/24 07:00 01/16/24 07:00 01/16/24 08:20
I&O
01/15/24 01/16/24 01/17/24
07:59 06:59 06:59
Intake Total
Balance
Review of Systems
-
History Source: Patient
All other systems: Reviewed and negative
Physical Exam
-
General: Well Nourished and No Apparent Distress
Respiratory: Clear to Auscultation and Non Labored Respirations; Negative Accessory Resp Muscle Use
Cardiac: Regular Rhythm and S1/S2; Negative Murmur, Rub or Gallop
GI: Other (non-tender, mildly distended, no rebound or guarding )
Musculoskeletal: No Clubbing, No Cyanosis and No Edema
Skin: Warm and Dry; Negative Rash or Jaundice
Neuro: AO x 3, Nonfocal/Grossly Intact and Central Nerve's Intact
Psych: Calm
Data Reviewed
-
Diagnostic Radiology: Report Reviewed by me
Labs: Labs Reviewed by me
[2024-01-16 11:55] LABS: Glucose - Point of Care 180 mg/dl (70-99)
--- NOTE | 2024-01-16 12:46 | W.DCSUMMARY ---
Discharge Summary
Discharge Data
Date of Admission: 01/14/24
Date of Discharge: 01/16/24
-
Pending Results: No
Hospital Course
Discharging Physician : Dr. Mary Tesfaye
Disposition : Home
Primary care physician : Dr. Eric Guerin
Principal Discharge diagnosis : Post ERCP Acute Pancreatitis
Hospital Course :
Mr. Phil Pollock is a 73 yo man with hx DM, s/p cholecystectomy 11/06/23 with recent admission for CBD stone 01/05/24 s/p unsuccessful ERCP 01/05 then transferred to [place] [facility] 01/08 with repeat ERCP 01/09 with stone removal and sphincterotomy
presents to the ER with abdominal distention and pain on 01/14/24. Vitals stable, WBC 15.[address] A/P with extensive peripancreatic edema with severe associated edema and inflammatory stranding. He was admitted to medicine with GI
consulting for post ERCP pancreatitis. He received IVF, with bowel rest his symptoms improved. He has some bloating but no pain prior to discharge and is tolerating a low fat diet. His WBC has increased to 21.2, no fevers or other signs of
infection. This is likely all stress response especially in the setting of improving symptoms. Therefore, OK to discharge home, as patient prefers to go home today. Will obtain close follow up labs.
GI referral in place and patient told to see his PCP within the next week.
Time spent on discharge was 35 minutes.
Important imaging findings :
CT A/P
IMPRESSION:
1).There is extensive peripancreatic edema with severe associated edema and inflammatory stranding in the mesentery, splenic hilum and along the greater curvature of the stomach in a pattern most suggestive of acute pancreatitis.
Correlation with the patient's serum amylase and lipase is recommended
2). There is a small amount of ascites around the liver
3). There are minimal right and small left pleural effusions with associated compressive atelectasis at lung bases
4). Cholecystectomy
5). Multiple bilateral renal cysts measuring up to 4.6 cm
7). Diverticuli are present in the colon with no CT evidence of diverticulitis
8). Prostatomegaly
Procedure findings :
Discharge Plan
-
Patient Disposition: Home (Routine Discharge)
Discharge Diagnosis/Procedures: post ERCP acute pancreatitis
Diet: Low Fat and Diabetic, Carb Controlled
Activity: As tolerated
Driving Restrictions: As prior to admission
Bathing Restrictions: None
Blood Work: CBC in 3 days
Instructions: Low-fat diet
Referrals:
Eric Guerin MD [Family Provider] - in less than 1 week
Dakota Gorman DO [Active] - in four to six weeks (Call to make an appointment for follow-up after discharge)
Prescriptions:
Continued
latanoprost 0.005 % Drops
1 drp RIGHT EYE HS
aspirin 81 mg Tablet,Delayed Release (Dr/Ec)
81 mg PO QPM
metformin 500 mg Tablet Extended Release 24 Hr
500 mg PO BID
rosuvastatin [Crestor] 10 mg Tablet
10 mg PO QPM
fenofibrate nanocrystallized [Tricor] 145 mg Tablet
145 mg PO HS
Glucosamine Chondroitin 550-30-1 mg Capsule
1 cap PO QPM
oxycodone 5 mg Tablet
5 mg PO Q6HPRN PRN (Reason: severe pains)
Discharge Orders:
Discharge Patient (As Directed); Ordered 01/16/24
Ordered By: Mary Tesfaye
Discharge Date and Time
Print Language: LIBYAN
[2024-01-16 13:28] VITALS: BP 150/88
== END 2024-01-16 14:36 | disposition home or self-care (01) | DRG 440 ==
LOC: 3 WEST ACU 06:31
PROVIDERS: ADMITTING PHYSICIAN Hospitalist; ATTENDING PHYSICIAN Student in an Organized Health Care Education/Training Program; CONSULT PHYSICIAN Student in an Organized Health Care Education/Training Program; EMERGENCY PHYSICIAN Student in an Organized Health Care Education/Training Program; FAMILY PHYSICIAN Family Medicine
DX: K85.80 Other acute pancreatitis without necrosis or infection (principal); E11.22 Type 2 diabetes mellitus with diabetic chronic kidney disease; E78.00 Pure hypercholesterolemia, unspecified; N18.30 Chronic kidney disease, stage 3 unspecified; E66.9 Obesity, unspecified; H40.9 Unspecified glaucoma; K21.9 Gastro-esophageal reflux disease without esophagitis; N20.0 Calculus of kidney; Z90.49 Acquired absence of other specified parts of digestive tract; Z79.84 Long term (current) use of oral hypoglycemic drugs; Z79.82 Long term (current) use of aspirin; Z87.891 Personal history of nicotine dependence; Z68.28 Body mass index [BMI] 28.0-28.9, adult
CPT/HCPCS: 74177; 80053; 81003; 82248; 82962; 83036; 83605; 83690; 83735; 85025; 85027; 96361; 96374; 96375; 99284; Q9967

== ENCOUNTER 2024-01-19 16:42 | Inpatient (IN) | payer MEDICARE, OTHER, SELFPAY ==
[2024-01-19 11:52] VITALS: BP 118/74
--- NOTE | 2024-01-19 12:26 | ED.GENMED ---
History of Present Illness
General
Chief Complaint: Fatigue
Source: patient, spouse and previous hospital records
Exam Limitations: none
Time Seen by Provider: 01/19/24 11:57
Nursing documentation reviewed up to this point in time: agreed with
History of Present Illness
History of Present Illness:
Patient is a 73-year-old male with history DM, s/p cholecystectomy 11/06/2023 and ERCP at [facility] on 01/10/24 with stone removal, recently discharged from [facility] 01/16/2024 for acute pancreatitis s/p ERCP presenting to the emergency
department with significantly worsening weakness and elevated WBC found on outpatient lab work. Patient states following discharge he was feeling well for the next 2 days although this morning felt extremely fatigued and weak. Patient did have
repeat lab work obtained by his primary care to trend his white blood cell count which continues to trend upward and is now at 22.9K. He was contacted by his PCP and recommended to come to the emergency department.
Patient denies any associated fever, chills, abdominal pain, nausea/vomiting, urinary symptoms. Patient states bowel movements have been regular.
Patient was discharged from [facility] with elevated white blood cell count thought to be initially secondary to stress response/inflammation.
Past History
Past History
ED Past Medical History: Hypercholesterolemia, NIDDM and Other (Renal calculus, Glaucoma, Ulcers)
ED Past Surgical History: Cholecystectomy, Orthopedic (Knee surgery), Tonsilectomy (and adenoids) and Other (Hernia repair 1970, Cataracts, Detached retina); Negative Urological
Social History
Tobacco: Former smoker
Alcohol: Occasional
Drug: None
Personal:
Living: with family
Employment: Retired
Family History
Family History: Other (Noncontributory)
Review of Systems
Review of Systems
Allergies reviewed?: Yes
All Other Systems: ROS reviewed and negative except as documented in HPI and ROS
Phy Exam
Physical Exam
Physical Exam:
Vitals: Patient's vital signs are stable. Afebrile
General: Patient is weak appearing, no acute distress
Skin: Warm and dry, no rashes or lesions. No jaundice
Head: Normocephalic, atraumatic
Eyes: Sclera nonicteric. EOMs intact. No nystagmus.
Throat: Protecting airway
Neck: Normal ROM, no cervical spine tenderness, no meningismus
Cardiac: Regular rate and rhythm, no murmurs.
Pulm: Normal respiratory effort, no wheezes, rales, rhonchi heard on exam.
Abdomen: Mildly distended. Abdomen soft. Very mild epigastric tenderness. No rebound tenderness or guarding.
Extremities: No evidence of cyanosis or edema. Palpable distal pulses
Neuro: AAOx3. CN II-XII intact. No focal neurologic deficits.
Psychiatric: Normal affect.
Course
Orders/Labs/Results
Orders:
Orders
01/19/24 12:24
0.9% Sodium Chloride 1000 ml [Nss] 1,000 ml IV BOLUS
01/19/24 12:40
Comprehensive Metabolic Panel Urgent
Lipase Urgent
01/19/24 13:25
UA Reflex to Culture [Urinalysis Reflex To Culture] Urgent
Date Specimen was Collected: 01/19/24
Time Specimen was Collected: 13:21
01/19/24 14:11
CT Abd/Pel (IV only)-DH only Urgent
Comment: recent ERCP induced pancreatitis
Reason For Exam: Weakness, leukocytosis, elevated lipase
01/19/24 Dinner
NPO
Allow oral meds: No
Allow clear liquids: No
01/19/24 15:13
HYDROmorphone [Dilaudid] 0.5 mg IV NOW STA
01/19/24 15:28
Blood Culture Q30M
VERONIKA Source: Blood/Venous
Specimen Description:
Blood Culture Q30M
VERONIKA Source: Blood/Venous
Specimen Description:
01/19/24 16:11
Admit/Transfer Patient As Directed
Co-Sign Provider:
Level of Care: Inpatient admission
Assign to:: Medical/Surgical
Physician / Group: Elda Regalado
Diagnosis: Unresolving Acute Pancreatitis
Reason for Hospitalization: Unresolving Acute Pancreatitis
Expected length of stay greater than two midnights?: Yes
ELOS- Estimated Length of Stay in days: 3
I certify the patient meets the requirements for IP care: Yes
PRN Pain Medication Management As Directed
May give lesser potent ordered pain med per pt: Yes
preference::
Protocol:: Medication orders for pain may be administered in a
manner that supports deferring to patient preference
when the pt is:
- Requesting an ordered lesser potent pain medication.
Least to most potent pain medications are defined
as: acetaminophen < NSAID < tramadol < opioids
(morphine, oxycodone, hydromorphone).
- Requesting a lesser dose of the same medication IF
ORDERED.
- Requesting a less intrusive route of administration
if both routes are prescribed by the provider (PO <
IV).
01/19/24 16:14
Code Status As Directed
Resuscitation Status: Full Code
01/19/24 17:42
0.9% Sodium Chloride 1000 ml [Nss] 1,000 ml IV 100 mls/hr
Dextrose 50%-Water [Dextrose 50% Syringe] 12.5 grams IV [id number] PRN
Glucagon [GlucaGen] 1 mg IM PRN PRN
HYDROmorphone [Dilaudid] 0.5 mg IV Q3HPRN PRN
Insulin Aspart Corrective Low [Novolog Flexpen-Low Resistance] See Protocol SC AC
Ondansetron Injectable [Zofran] 4 mg IV Q6HPRN PRN
01/19/24 17:42
GASTROINTESTINAL CONSULT Routine
Consulting Provider: Dakota Gorman
Was physician already notified: Yes
Activity As Directed
Activity Level: Ambulate
Bedside Glucose Monitoring As Directed
Frequency: AC&HS
Additional Instructions:: Change to q6h if pt on TPN, tube feeding or not eating
Pneumatic Compression Sleeves As Directed
Type: Knee high
Vital Signs As Directed
Frequency: Per unit guidelines
01/19/24 22:00
Latanoprost [Xalatan Ophthalmic Solution] See Dose Instructions RIGHT EYE HS
01/20/24 06:00
Complete Blood Count/No Diff IN AM
Comprehensive Metabolic Panel IN AM
Glycohemoglobin (HgbA1c) IN AM
Lipase IN AM
01/21/24 06:00
Complete Blood Count/No Diff IN AM
Comprehensive Metabolic Panel IN AM
01/22/24 06:00
Complete Blood Count/No Diff IN AM
Comprehensive Metabolic Panel IN AM
Abnormal Lab Results
01/19/24 01/19/24
12:40 13:25
BUN 21 H mg/dl
(9-20)
Glucose 195 H mg/dl
(70-99)
ALT 52 H U/L
(0-50)
Total Protein 5.0 L g/dl
(6.3-8.2)
Albumin 2.5 L g/dl
(3.5-5.0)
Lipase 641 H U/L
(23-300)
Urine Urobilinogen 3+ A
(Neg - 1+)
Urine Glucose Trace A
(Negative)
01/19/24 12:40
Vital Signs
Initial and Last Documented VS:
Initial Vital Signs
Temp Pulse Resp BP Pulse Ox
98.2 F 77 16 118/74 98
01/19/24 11:52 01/19/24 11:52 01/19/24 11:52 01/19/24 11:52 01/19/24 11:52
Last Documented Vital Signs
Temp Pulse Resp BP Pulse Ox
98.1 F 71 18 142/87 97
01/19/24 18:05 01/19/24 18:05 01/19/24 18:05 01/19/24 18:05 01/19/24 18:21
MDM/Problems Addressed
Differential Diagnosis Includes:
Not limited to: Acute pancreatitis, choledocholithiasis, spontaneous bacterial peritonitis, bacteremia, UTI, viral illness, etc.
MDM/Problems Addressed:
73-year-old male presenting with worsening fatigue and elevated white count recently discharged following admission for ERCP induced pancreatitis. Patient denies fever, nausea, abdominal pain. Labs obtained outpatient by PCP today show white count
of 22.9K increase from 21.1K at discharge. Vital signs stable. Patient is afebrile. Physical exam as above. Patient generally weak appearing, nontoxic. Abdomen is soft with very mild epigastric tenderness. No focal neurologic deficits. No
jaundice or scleral icterus noted. Was able to review CBC performed today. Will check chemistry, lipase and urine. Given significant leukocytosis and weakness�will draw blood cultures.
Update: Chemistry reviewed. Lipase found to be elevated at 641. Urine shows no signs of infection. Did discuss with GI on-call, Dr. Gorman who recommends repeat imaging of abdomen. CT abdomen/pelvis pending.
Update: CT abdomen/pelvis shows severe acute pancreatitis without complications. Will admit to hospitalist for continued IV hydration. Will hold on antibiotics pending blood culture data. GI aware. Admitted to hospitalist service in stable
condition.
Chronic conditions affecting care:
DM
Acute Exacerbation and/or Progression of Chronic Illness:
Acutely hyperglycemic
*Radiology
Radiology exam reviewed: preliminary read by ED provider and radiology read reviewed
*Pulse Oximetry
Patient hypoxic: no
*EKG
Interpreted by ED Provider?: NA
*Prevention Specialist Interpretation
Rate: normal
Interpretation: normal
Heart Rate: 70
Rhythm: sinus
*Critical Care Note
Total Time (30-74mins, 75-104mins- exclusive of procedures): Not Applicable
Patient Management
Discussion with other providers: Peanut Salter (Dr. Gorman- GI)
Escalation/DeEscalation of care consider admission/obs:
Admit for IV fluids, blood culture trending
ED Attending Note
-
Portions of this chart may have been created with voice recognition software.� Occasional wrong word or��sound alike� substitutions may have occurred due to the inherent limitations of voice recognition software.
Discharge Plan
Departure
Patient Disposition: Admit
Date of Disposition: 01/19/24
Time of Disposition: 15:25
Presentation/result/management discussed w/ accepting MD/DO: Hospitalist
Discharge Problem:
Acute recurrent pancreatitis
Interventions
Interventions:
*Risk Screen - Suicide Last Done: 01/19/24 11:52
*General Assessment Last Done: 01/19/24 12:40
*Neglect/Abuse Screening Last Done: 01/19/24 11:52
*ED COVID-19 Vaccine History Last Done: 01/19/24 12:40
*Nursing Disposition Last Done: 01/19/24 17:37
Discharge Date and Time
Discharge Date/Time: 01/19/24 17:38
[2024-01-19] MEDS: NSS 1000 IV ×2 (12:41→18:10)
[2024-01-19 13:06] LABS: ALT (SGPT) 52 U/L (0-50); AST (SGOT) 58 U/L (17-59); Albumin 2.5 g/dl (3.5-5.0); Alkaline Phosphatase 52 U/L (38-126); Blood Urea Nitrogen 21 mg/dl (9-20); Calcium 8.5 mg/dl (8.4-10.2); Carbon Dioxide 24 mmol/L (22-30); Chloride 106 mmol/L (98-107); Glucose 195 mg/dl (70-99); Lipase 641 U/L (23-300); Sodium 139 mmol/L (135-145); Total Bilirubin 0.7 mg/dl (0.2-1.3); eGFR > 60.00
[2024-01-19 13:34] LABS: Urine Albumin Negative (Neg - Trace); Urine Bilirubin Negative (Negative); Urine Character Clear (Clear); Urine Color Yellow; Urine Glucose Trace (Negative); Urine Ketone Negative (Negative); Urine Leukocyte Negative (Negative); Urine Nitrite Negative (Negative); Urine Occult Blood Negative (Negative); Urine Specific Gravity 1.015 (<1.030); Urine Urobilinogen 3+ (Neg - 1+); Urine pH 6.5 (5.0-9.0)
[2024-01-19 14:24] VITALS: BP 135/78
[2024-01-19] MEDS: DILAUDID 0.5 MG IV ×2 (15:18→19:34)
--- NOTE | 2024-01-19 15:35 | HPS.HSE ---
Family Physician
-
Family Physician: Eirc Guerin
Chief Complaint
-
abnormal labs
History of Present Illness
Patient is a 73-year-old male with past medical history significant for recent severe pancreatitis and type 2 diabetes who presented to [facility] ED for evaluation following recommendation from primary care provider as his WBC trending up from
recent hospitalization. Patient had a cholecsyectomy 11/06/2023 and ERCP at [facility] on 01/10/2024 with stone removal, recently discharged from [facility] 01/16/2024. Patient reports following discharge he felt well for first 2 days then
today he woke feeling fatigued and weak. Patient had repeat lab work completed by primary care provider and his WBC trended upward to 22.9k. PCP recommended he come to ED for evaluation. Patient denies any fevers, chills, chest pain, palpitations,
shortness of breath, cough, nausea, vomiting, constipation, diarrhea or urinary symptoms.
Medical History
Past Medical History
Past Medical History: Reports Other
Additional Past Medical History:
Type 2 diabetes
CKD III
Nephrolithiasis
GERD
Glaucoma
Past Surgical History: Reports Other
Additional Past Surgical History:
Cholecystectomy
Hernia repair
Right knee arthroscopy
T&A
Cataracts
Social History
Tobacco: Former Smoker (30 pack year history)
Alcohol: Occasional
Drug: None
Personal:
Living: With Family
Employment: Retired
Family History
Family History: Not pertinent
Allergies / Home Medications
Allergies reflects when Allergies were last updated in [employer].
Home Medications with original date entered in [employer]
Allergy/Medication List:
Allergies
Allergy/AdvReac Type Severity Reaction Status Date / Time
No Known Allergies Allergy Verified 01/19/24 11:54
Home Medications
aspirin 81 mg tablet,delayed release 81 mg PO QPM Blood Clot Prevention/Tx 04/13/23
fenofibrate nanocrystallized 145 mg tablet (Tricor) 145 mg PO HS High Cholesterol 04/13/23
glucosamine sulf dipot chlr,msm,chond 550 mg-C 30 mg-edd 1 mg capsule (Glucosamine Chondroitin) 1 cap PO QPM Supplement 04/13/23
metformin 500 mg tablet,extended release 24 hr 500 mg PO BID Diabetes 04/13/23
rosuvastatin 10 mg tablet (Crestor) 10 mg PO QPM High Cholesterol 04/13/23
acetaminophen 500 mg tablet (Tylenol Extra Strength) 1,000 mg PO Q6HPRN PRN mild pain 01/19/24
latanoprost 0.005 % eye drops 1 drp RIGHT EYE HS Eye Condition 01/19/24
polyethylene glycol 3350 17 gram oral powder packet (Miralax) 17 g PO DAILYPRN PRN constipation 01/19/24
therapeutic multivitamin 1 tab PO DAILY Supplement 01/19/24
Review of Systems
-
History Source: Patient
Constitutional: Reports Fatigue
EENT: Reports No Symptoms
Respiratory: Reports No Symptoms
Cardiac: Reports No Symptoms
Abdomen/GI: Reports Abdominal Pain
: Reports No Symptoms
Musculoskeletal: Reports No Symptoms
Skin: Reports No Symptoms
Neurological: Reports No Symptoms
Endocrine: Reports No Symptoms
Hematologic/Lymphatic: Reports No Symptoms
Psych: Reports No Symptoms
Physical Exam
Vital Signs
Vital Signs
Temp Pulse Resp BP Pulse Ox
98.2 F 67 20 135/78 98
01/19/24 11:52 01/19/24 14:24 01/19/24 14:24 01/19/24 14:24 01/19/24 14:24
Physical Exam
General: Well Developed, Well Nourished, No Apparent Distress, Comfortable and Conversant
HEENT: NormoCephalic, Moist mucous membranes, Atraumatic, PERRLA, Nose Appears Normal and Ears Appear Normal
Respiratory: Clear and Non Labored Respirations; No Wheezes, Rales, Rhonchi or Crackles
Cardiac: S1/S2 and Regular Rhythm; No Murmur or Rub
Breast: Deferred by me
GI: Soft, Non Distended, Normal Bowel Sounds and Tender (mild tenderness RUQ); No Organomegaly
Rectal: Deferred by Provider
Genito-urinary: Deferred by me
Musculoskeletal: No Clubbing, No Cyanosis and No Edema
Skin: No Rash
Neuro: Awake, Alert, AO x 3 and Nonfocal/grossly intact
Hematologic/Lymphatic: No Lymphadenopathy
Psych: Calm and Intact Judgment/Insight
Laboratory Results
-
01/19/24 12:40
Laboratory Results
Total Bilirubin 0.7 mg/dl (0.2-1.3) 01/19/24 12:40
AST 58 U/L (17-59) 01/19/24 12:40
ALT 52 U/L (0-50) H 01/19/24 12:40
Alkaline Phosphatase 52 U/L (38-126) 01/19/24 12:40
Lipase 641 U/L (23-300) H 01/19/24 12:40
Data Reviewed
-
CT Scan: Report Reviewed by me (Abd CT: Redemonstration of severe acute interstitial edematous pancreatitis without overt CT evidence for complication.)
Lab Data: Labs Reviewed by me (WBC 22.9, Lipase 641, )
Impression/Plan
-
IMPRESSION/PLAN:
#Pancreatitis
- s/p severe post-ERCP pancreatitis, discharged 01/16/2024
- Admit to Med/Surg
- supportive care, IVF, pain control, antiemetics, etc..
#Type 2 Diabetes
- A1C 6.3 on 01/15/2024
- Hold metformin
- Accuchecks AC & HS
- Sliding scale insulin
#CKD III
- BUN 21, Creat 0.8
- Stable monitor for changes
Full code
DVT Px: SCDs
--- NOTE | 2024-01-19 16:16 | W.PN.UPDATE ---
Update Note
Progress Note Update
This is an addendum to the H&P written by Brittany Holder on 01/19/2024. Patient seen and examined independently with PROGRAMMER DEVELOPER.
73-year-old male past medical history of type 2 diabetes, recent choledocholithiasis status post ERCP and sphincterotomy complicated by post ERCP pancreatitis, CKD 3, presenting for significantly worsening weakness, elevated white blood cell count
outpatient labs. No abdominal pain or nausea or vomiting.
Labs show leukocytosis 22, lipase of 640 elevated from peak of [address] abdomen pelvis shows redemonstration of severe acute interstitial edematous pancreatitis without CT evidence for complication.
Patient here for persistent acute post ERCP pancreatitis. N.p.o., IV fluids, pain control with Dilaudid. GI consulted. May need MRI abdomen.
[2024-01-19 18:05] VITALS: BP 142/87
[2024-01-19 18:06] VITALS: BMI 27.7
[2024-01-19 18:15] LABS: Glucose - Point of Care 118 mg/dl (70-99)
[2024-01-19] MEDS: NOVOLOG FLEXPEN-LOW RESISTANCE SC (18:16)
--- NOTE | 2024-01-19 18:19 | PTCARENOTE ---
pt presents from ED via stretcher. pt is AAO*3, vss, room air. pt c/o 5/10 pain. pt received pain med in ED. pt is oriented to the room call walker within the reach. plan of care ongoing.
[2024-01-19] MEDS: XALATAN OPHTHALMIC SOLUTION 1 DROP RIGHT EYE (19:34)
[2024-01-19 21:06] LABS: Glucose - Point of Care 120 mg/dl (70-99)
[2024-01-19 23:58] VITALS: BP 148/80
[2024-01-20] MEDS: DILAUDID 0.5 MG IV ×2 (01:52→07:45)
[2024-01-20] MEDS: NSS 1000 IV ×3 (03:53→22:21)
--- NOTE | 2024-01-20 05:56 | CON.GI ---
Consultation
-
Date/Time Consultation Requested: 01/19/24, 17:42
Date/Time Consultation Performed: 01/20/24, 05:57
Requesting Provider: Maegan Holder
Performing Provider: Dr. Dakota Gorman
Reason for Consultation: Post-ERCP Pancreatitis
Medical History
Chief Complaint / HPI
Chief Complaint: Abnormal labs
History of Present Illness:
Mr Pollock is a 73 y.o male with pmh of DM 2, CKD III, nephrolithiasis, GERD, glaucoma, choledocholithiasis (s/p ERCP 01/05 but difficulty with cannulation with subsequent repeat ERCP at [facility] 01/10/24 with ES and balloon extraction with stone
removal) who presented to the ED with epigastric abdominal pain.
Notes previous upper abdominal pain after his second ERCP at [facility], but became much worse prompting him to come to the ED. LFTs improved without evidence of biliary obstruction with lipase 331 meeting criteria for post-ERCP pancreatitis.
Leukocytosis also noted but likely reactive.
Patient reports following discharge he felt well for first 2 days then today he woke feeling fatigued and weak. Patient had repeat lab work completed by primary care provider and his WBC trended upward to 22.9k. PCP recommended he come to ED for
evaluation. Patient denies any fevers, chills, chest pain, palpitations, shortness of breath, cough, nausea, vomiting, constipation, diarrhea or urinary symptoms.
Allergies / Home Medications
Allergy/AdvReac Type Severity Reaction Status Date / Time
No Known Allergies Allergy Verified 01/19/24 11:54
�Medication �Instructions �Recorded
aspirin 81 mg tablet,delayed 81 mg PO QPM Blood Clot 04/13/23
release Prevention/Tx
fenofibrate nanocrystallized 145 145 mg PO HS High Cholesterol 04/13/23
mg tablet (Tricor)
glucosamine sulf dipot 1 cap PO QPM Supplement 04/13/23
chlr,msm,chond 550 mg-C 30 mg-edd
1 mg capsule (Glucosamine
Chondroitin)
metformin 500 mg tablet,extended 500 mg PO BID Diabetes 04/13/23
release 24 hr
rosuvastatin 10 mg tablet (Crestor) 10 mg PO QPM High Cholesterol 04/13/23
acetaminophen 500 mg tablet 1,000 mg PO Q6HPRN PRN mild pain 01/19/24
(Tylenol Extra Strength)
latanoprost 0.005 % eye drops 1 drp RIGHT EYE HS Eye Condition 01/19/24
polyethylene glycol 3350 17 gram 17 g PO DAILYPRN PRN constipation 01/19/24
oral powder packet (Miralax)
therapeutic multivitamin 1 tab PO DAILY Supplement 01/19/24
Review of Systems
Vital Signs
Temp Pulse Resp BP Pulse Ox
99.2 F 74 20 148/80 96
01/19/24 23:58 01/19/24 23:58 01/19/24 23:58 01/19/24 23:58 01/19/24 23:58
Physical Exam
Results
Sodium 139 mmol/L (135-145) 01/19/24 12:40
Potassium 4.0 mmol/L (3.5-5.1) 01/19/24 12:40
Chloride 106 mmol/L (98-107) 01/19/24 12:40
Carbon Dioxide 24 mmol/L (22-30) 01/19/24 12:40
BUN 21 mg/dl (9-20) H 01/19/24 12:40
Creatinine 0.8 mg/dL (0.7-1.3) 01/19/24 12:40
Calcium 8.5 mg/dl (8.4-10.2) 01/19/24 12:40
Total Bilirubin 0.7 mg/dl (0.2-1.3) 01/19/24 12:40
AST 58 U/L (17-59) 01/19/24 12:40
ALT 52 U/L (0-50) H 01/19/24 12:40
Alkaline Phosphatase 52 U/L (38-126) 01/19/24 12:40
Lipase 641 U/L (23-300) H 01/19/24 12:40
Diagnostic Image Results:
Prior GI Procedures:
EGD:
Colonoscopy:
-
-
Thank you for consultation and allowing me to participate in the patient's care. Please call the engagement liaison GI physician during the after hours with any questions or concerns.
[2024-01-20 06:04] LABS: Glucose - Point of Care 111 mg/dl (70-99)
[2024-01-20] MEDS: NOVOLOG FLEXPEN-LOW RESISTANCE SC (06:30)
--- NOTE | 2024-01-20 06:59 | CON.GI ---
Consultation
-
Date/Time Consultation Requested: 01/19/24 17.42 pm
Date/Time Consultation Performed: 01/20/24 07.15 am
Requesting Provider: Niharika Holder CRNP
Performing Provider: Tiffanie Morales MD
Reason for Consultation: Pancreatitis
Medical History
Chief Complaint / HPI
Chief Complaint: Weakness
History of Present Illness:
The patient is a 73-year-old male with history of s/p cholecystectomy on 11.06.2023 and ERCP at [facility] on 01.10.24 with stone removal from CBD without any complication. The patient was discharged from Hospital on 01.16.24 while tolerating food
intake and was feeling good until yesterday morning. The patient reported he was really felling good and have no pain on Wednesday and ate variety of food. But he woke up feeling weak and did not feel strong enough to stand up by himself yesterday
and presented to ER. He denied any associated fever, chills,abdominal pain/radiating pain, diarrhea,constipation, nausea and vomiting. His Abd/Pelvis CT showed: 'severe acute interstitial edematous pancreatitis without overt CT evidence for
complication.'
This morning, patient was seen in his bed resting. He reported feeling some abdominal distention and minimal tenderness around umbical area. Reported having 2 BM yesterday with a light brown color and denied any urine color change. Reports he still
has passing gasses during the night.
Past Medical History
Past Medical History: Other (Type 2 diabetes CKD III Nephrolithiasis GERD Glaucoma)
Past Surgical History: Other (Cholecystectomy Hernia repair Right knee arthroscopy T&A Cataracts)
Social History
Tobacco: Former Smoker (30 pack year history)
Alcohol: Other (No recent use )
Drug: None
Personal:
Living: With Family
Employment: Retired
Family History
Family History: Reviewed & Not Pertinent
Allergies / Home Medications
Allergy/AdvReac Type Severity Reaction Status Date / Time
No Known Allergies Allergy Verified 01/19/24 11:54
�Medication �Instructions �Recorded
aspirin 81 mg tablet,delayed 81 mg PO QPM Blood Clot 04/13/23
release Prevention/Tx
fenofibrate nanocrystallized 145 145 mg PO HS High Cholesterol 04/13/23
mg tablet (Tricor)
glucosamine sulf dipot 1 cap PO QPM Supplement 04/13/23
chlr,msm,chond 550 mg-C 30 mg-edd
1 mg capsule (Glucosamine
Chondroitin)
metformin 500 mg tablet,extended 500 mg PO BID Diabetes 04/13/23
release 24 hr
rosuvastatin 10 mg tablet (Crestor) 10 mg PO QPM High Cholesterol 04/13/23
acetaminophen 500 mg tablet 1,000 mg PO Q6HPRN PRN mild pain 01/19/24
(Tylenol Extra Strength)
latanoprost 0.005 % eye drops 1 drp RIGHT EYE HS Eye Condition 01/19/24
polyethylene glycol 3350 17 gram 17 g PO DAILYPRN PRN constipation 01/19/24
oral powder packet (Miralax)
therapeutic multivitamin 1 tab PO DAILY Supplement 01/19/24
Review of Systems
-
History Source: Patient
EENT: Reports No Symptoms
Respiratory: Reports No Symptoms
Cardiac: Reports No Symptoms
Abdomen/GI: Reports Other (Minimal tenderness on miud abdominal area )
: Reports No Symptoms
Musculoskeletal: Reports Other (Generalized weakness)
Skin: Reports No Symptoms
Neurological: Reports No Symptoms
Vital Signs
Temp Pulse Resp BP Pulse Ox
99.2 F 74 20 148/80 96
01/19/24 23:58 01/19/24 23:58 01/19/24 23:58 01/19/24 23:58 01/19/24 23:58
Physical Exam
Exam
General: Well Developed, Well Nourished, No Apparent Distress and Comfortable
HEENT: Normocephalic, Anicteric and Moist Mucous Membranes
Respiratory: Clear
Cardiac: S1/S2 and Regular Rhythm
GI: Soft, Non Distended, Tender (Minimal Tenderness around umblicus ) and Other (No rebound, No guarding )
Musculoskeletal: No Clubbing, No Cyanosis and No Edema
Skin: Warm
Neuro: Awake, Alert and Oriented
Results
Sodium 139 mmol/L (135-145) 01/19/24 12:40
Potassium 4.0 mmol/L (3.5-5.1) 01/19/24 12:40
Chloride 106 mmol/L (98-107) 01/19/24 12:40
Carbon Dioxide 24 mmol/L (22-30) 01/19/24 12:40
BUN 21 mg/dl (9-20) H 01/19/24 12:40
Creatinine 0.8 mg/dL (0.7-1.3) 01/19/24 12:40
Calcium 8.5 mg/dl (8.4-10.2) 01/19/24 12:40
Total Bilirubin 0.7 mg/dl (0.2-1.3) 01/19/24 12:40
AST 58 U/L (17-59) 01/19/24 12:40
ALT 52 U/L (0-50) H 01/19/24 12:40
Alkaline Phosphatase 52 U/L (38-126) 01/19/24 12:40
Lipase 641 U/L (23-300) H 01/19/24 12:40
Diagnostic Image Results:
Abd/Pelvis CT 01/19/24
IMPRESSION:
Redemonstration of severe acute interstitial edematous pancreatitis without overt CT evidence for complication.
Abd/Pelvis CT 01/14/24
IMPRESSION:
1).There is extensive peripancreatic edema with severe associated edema and inflammatory stranding in the mesentery, splenic hilum and along the greater curvature of the stomach in a pattern most suggestive of acute pancreatitis.
Correlation with the patient's serum amylase and lipase is recommended
2). There is a small amount of ascites around the liver
3). There are minimal right and small left pleural effusions with associated compressive atelectasis at lung bases
4). Cholecystectomy
5). Multiple bilateral renal cysts measuring up to 4.6 cm
7). Diverticuli are present in the colon with no CT evidence of diverticulitis
8). Prostatomegaly
Abd/Pelvis CT 01/06/24
IMPRESSION:
1. Status post cholecystectomy. Inflammatory change and small bubbles of air within the gallbladder fossa, suggestive of recent cholecystectomy. No significant fluid collection within the gallbladder fossa.
2. 5 mm stone within the distal common bile duct. Common bile duct measures 5 mm in diameter. Consider ERCP.
3. Mild prostatic enlargement.
Prior GI Procedures:
EGD: Not known
Colonoscopy:
02/24/17
Impression: - Diverticulosis in the sigmoid colon and in the
descending colon.
- The examination was otherwise normal.
- The distal rectum and anal verge are normal on
retroflexion view.
- No specimens collected.
Recommendation: - Repeat colonoscopy in 5 years for surveillance.
Assessment / Plan
-
Impression: The patient is a 73 y.o male with a PMH of DM 2, CKD III, nephrolithiasis, GERD, glaucoma, choledocholithiasis. He underwent cholecystectomy on 11/06/2023. In following 2 months, he developed abdominal pain and a CBD stone was found.
The patient underwent second ERCP at [facility] on 01/10/2024 with stone removal from CBD and discharged from the hospital on 01/16/24 without any complaints. He reported feeling good after discharge but started to feel weak yesterday morning and
he presented to ER. Patient denied any associated fever, chills,abdominal pain/radiating pain, diarrhea,constipation, nausea and vomiting. His Abd/Pelvis CT showed: 'severe acute interstitial edematous pancreatitis without overt CT evidence for
complication.' This morning, patient was seen in his bed resting. He reported feeling some abdominal distention and minimal tenderness around umbical area. Reported having 2 BM yesterday with a light brown color and denied any urine color change.
Reports he still has passing gasses during the night.
Assessment/Plan:
#Pancreatitis likely post-ERCP
-Abd CT:severe acute interstitial edematous pancreatitis
-WBC elevated at 22.9 on 01/18 and 20.9 on 01/19 likely reactive, hgb sg, blood culture pending
-LFT slightly elevated AST:61, ALT 53, ALP:N, Lipase dropped from 641 to 458, Continue f/u
-Urine color yellow, urine urobilinogen 3 +A
-Continue IV fluids
-Continue pain control with opioids
-Started on clear Liquid Diet
The patient will be follow up by GI team
-
-
Thank you for consultation and allowing me to participate in the patient's care. Please call the monkey keeper GI physician during the after hours with any questions or concerns.
[2024-01-20 07:21] LABS: Hematocrit 27.3 % (39.0-52.0); Hemoglobin 9.5 g/dL (13.0-18.0); Mean Corp Hgb Conc. 34.8 g/dL (33.0-37.0); Mean Corpuscular Volume 86.1 fL (80.0-94.0); Mean Platelet Volume 9.8 fL (7.4-10.4); Platelet Count 409 10^3/uL (130-400); Red Blood Cell Count 3.17 10^6/uL (4.70-6.10); Red Cell Dist. Width 14.9 % (11.5-14.5); White Blood Cell Count 20.9 10^3/uL (4.8-10.8)
[2024-01-20 07:48] LABS: ALT (SGPT) 53 U/L (0-50); AST (SGOT) 61 U/L (17-59); Albumin 2.5 g/dl (3.5-5.0); Alkaline Phosphatase 46 U/L (38-126); Blood Urea Nitrogen 16 mg/dl (9-20); Calcium 8.3 mg/dl (8.4-10.2); Carbon Dioxide 23 mmol/L (22-30); Chloride 104 mmol/L (98-107); Estimated Creatinine Clearance 80 ml/min; Glucose 116 mg/dl (70-99); Lipase 458 U/L (23-300); Potassium 4.2 mmol/L (3.5-5.1); Sodium 139 mmol/L (135-145); Total Bilirubin 0.8 mg/dl (0.2-1.3); Total Protein 5.1 g/dl (6.3-8.2); eGFR > 60.00
[2024-01-20 07:53] VITALS: BP 141/84
--- NOTE | 2024-01-20 11:00 | W.PN.HOSP.TC ---
Today's Communication/Plan
-
clears, if does ok, LFD for dinner
prn Tramadol
follow blood cultures
follow GI recs
Assessment / Plan
Assessment / Plan
Assessment:
Post-ERCP Pancreatitis
Recent CBD Stone s/p ERCP and Sphincterotomy
- Patient underwent ERCP x 2 on 01/05 and 01/09.
- discharged 01/15 to home
- returns 01/18 with pain, fatigue
- Lipase marginally elevated
- repeat CT: Re-demonstration of severe acute interstitial edematous pancreatitis without overt CT evidence for complication.
- d/w GI and patient, plan is for clears, advance as tolerated to LFD
- MRI/MRCP in 6-8 weeks with OP f/u with Dr. Gorman, no concern presently for necrosis, PD leak/disruption or other bharati-pancreatic fluid collection or other concern for infection.
Leukocytosis persistent
- suspect ongoing stress reaction to pancreatitis
- follow cultures; if negative tomorrow will dc home with above plan
DM-II
- Stable. Hold PO medications acutely.
- Follow glucose and cover with SSI as needed.
- 6.3% recently A1c
CKD IIIb
- Stable. Renal function is better than known baseline.
- Follow for any changes.
DVT Prophylaxis: Lovenox
Code: Full
Anticipated Discharge: Within 24 hours
Subjective/Interval History
-
Date of Service: January 20, 2024
pain more controlled, states he has an appetite
Objective Data
-
Labs:
Laboratory Results
01/20/24
06:32
WBC 20.9 H
Hgb 9.5 L
Hct 27.3 L
Plt Count 409 H
Sodium 139
Potassium 4.2
Chloride 104
Carbon Dioxide 23
BUN 16
Creatinine 0.8
Glucose 116 H
Calcium 8.3 L
Total Bilirubin 0.8
AST 61 H
ALT 53 H
Alkaline Phosphatase 46
Vital Signs:
Vital Signs
Temp Pulse Resp BP Pulse Ox
98.3 F 83 18 141/84 98
01/20/24 07:53 01/20/24 07:53 01/20/24 07:53 01/20/24 07:53 01/20/24 08:38
I&O
01/19/24 01/20/24 01/21/24
06:59 06:59 06:59
Intake Total 1200 / 1200
Balance 1200 / 1200
Physical Exam
-
General: No Apparent Distress
HEENT: Normocephalic and Atraumatic
Respiratory: Negative Wheezes
Cardiac: Regular Rhythm and S1/S2
GI: Soft and Nontender
Musculoskeletal: No Edema
Neuro: AO x 3
Hematologic / Lymphatic: No Lymphadenopathy
Psych: Calm
Data Reviewed
-
Total Time Spent with Patient (in minutes): 41
Labs: Labs Reviewed by me
[2024-01-20 11:31] LABS: Glucose - Point of Care 192 mg/dl (70-99)
[2024-01-20] MEDS: NOVOLOG FLEXPEN-LOW RESISTANCE 1 UNITS SC ×2 (11:54→17:15)
[2024-01-20 14:57] VITALS: BMI 27.7
[2024-01-20 15:00] VITALS: BP 127/63
--- NOTE | 2024-01-20 16:04 | CM ---
Alert awake oriented patient who lives with his Cassandra who lives in a 2 story home with 2 step to enter and 13 steps to bed and bathroom. He is independent in driving and in all activities of daily living.He was offered VN he declined need.
No VN hx / No SNF history
[facility]
PCP DR Guerin
PLAN Home Declined VN
[2024-01-20 17:06] LABS: Glucose - Point of Care 167 mg/dl (70-99)
[2024-01-20 21:09] LABS: Glucose - Point of Care 188 mg/dl (70-99)
[2024-01-20] MEDS: MELATONIN 5 MG PO (22:21)
[2024-01-20] MEDS: XALATAN OPHTHALMIC SOLUTION 1 DROP RIGHT EYE (22:22)
[2024-01-20 23:38] VITALS: BP 117/58
[2024-01-21] MEDS: ULTRAM 25 MG PO (01:38)
[2024-01-21 07:09] LABS: Glucose - Point of Care 145 mg/dl (70-99)
[2024-01-21 07:15] VITALS: BP 136/79
[2024-01-21 07:55] VITALS: BP 136/79
[2024-01-21] MEDS: NOVOLOG FLEXPEN-LOW RESISTANCE SC (08:03)
--- NOTE | 2024-01-21 08:05 | W.PN.GI.CBS2 ---
Today's Communication / Plan
-
f/u AM labs, if improving, okay for discharge today. GI will sign off, please call if patient worsens clinically or if labs worsening.
Assessment / Plan
-
Impression: The patient is a 73 y.o male with a PMH of DM 2, CKD III, nephrolithiasis, GERD, glaucoma, choledocholithiasis. He underwent cholecystectomy on 11/06/2023. In following 2 months, he developed abdominal pain and a CBD stone was found.
The patient underwent second ERCP at [facility] on 01/10/2024 with stone removal from CBD and discharged from the hospital on 01/16/24 readmitted with fatigue found to have post-ERCP pancreatitis.
Assessment/Plan:
#Pancreatitis likely post-ERCP
-Abd CT:severe acute interstitial edematous pancreatitis
-Leukocyotsis on admission of 22.9, improved to 20.9, otherwise, afebrile
elevated at 22.9 on 01/18 and 20.9 on 01/19 likely reactive, hgb sg, prelim bx NGTD
-LFT slightly elevated AST:61, ALT 53, ALP:N, Lipase dropped from 641 to 458, Continue f/u
-Urine color yellow, urine urobilinogen 3 +A
-tolerating low residue diet without issue
AM labs pending. As long as his liver chemistries and WBC count continue to improve, okay to discharge today from a GI perspective without patient follow-up with Dr. Tran or Dr. Gorman.
Subjective
Subjective
Date of Service: January 21, 2024
Patient seen in follow-up, he tolerated low residue diet last night without issue. He reports he moved his bowels yesterday. Overall feeling improved.
Objective
Data Reviewed
Laboratory Data:
Laboratory Results
Total Bilirubin 0.8 mg/dl (0.2-1.3) 01/20/24 06:32
AST 61 U/L (17-59) H 01/20/24 06:32
ALT 53 U/L (0-50) H 01/20/24 06:32
Alkaline Phosphatase 46 U/L (38-126) 01/20/24 06:32
Lipase 458 U/L (23-300) H 01/20/24 06:32
Vital Signs and I&O:
Vital Signs
Temp Pulse Resp BP Pulse Ox
98.3 F 83 18 136/79 97
01/21/24 07:15 01/21/24 07:15 01/21/24 07:15 01/21/24 07:15 01/21/24 07:15
I&O
01/20/24 01/21/24 01/22/24
06:59 06:59 06:59
Intake Total 1200 / 1200 2940 / 2940
Balance 1200 / 1200 2940 / 2940
Physical Exam
Physical Exam
HEENT: Anicteric and Moist mucous membranes
Cardiology: Normal Sinus Rhythm
Pulmonary: Clear and Other (Normal WOB on room air)
GI: Soft, Distended (Mild distension), Non Tender and Normal Bowel Sounds
Extremities: No Edema
Neuro: Non Focal
[2024-01-21] MEDS: NSS 1000 IV (08:09)
[2024-01-21 08:14] LABS: Hematocrit 28.4 % (39.0-52.0); Hemoglobin 9.8 g/dL (13.0-18.0); Mean Corp Hgb Conc. 34.5 g/dL (33.0-37.0); Mean Corpuscular Volume 86.9 fL (80.0-94.0); Mean Platelet Volume 9.4 fL (7.4-10.4); Platelet Count 432 10^3/uL (130-400); Red Blood Cell Count 3.27 10^6/uL (4.70-6.10); Red Cell Dist. Width 14.6 % (11.5-14.5)
--- NOTE | 2024-01-21 09:14 | W.PN.HOSP.TC ---
Today's Communication/Plan
-
dc to home
Assessment / Plan
Assessment / Plan
Assessment:
Post-ERCP Pancreatitis
Recent CBD Stone s/p ERCP and Sphincterotomy
- Patient underwent ERCP x 2 on 01/05 and 01/09.
- discharged 01/15 to home
- returns 01/18 with pain, fatigue
- Lipase marginally elevated; LFTS slightly abnormal but stable
- repeat CT: Re-demonstration of severe acute interstitial edematous pancreatitis without overt CT evidence for complication.
- d/w GI and patient. LFD tolerated. CMP next week and MRI/MRCP in 6-8 weeks with OP f/u with Dr. Gorman, no concern presently for necrosis, PD leak/disruption or other bharati-pancreatic fluid collection or other concern for infection.
Leukocytosis persistent
- suspect ongoing stress reaction to pancreatitis
- cultures negative
DM-II
- Stable. Hold PO medications acutely.
- Follow glucose and cover with SSI as needed.
- 6.3% recently A1c
CKD IIIb
- Stable. Renal function is better than known baseline.
- Follow for any changes.
DVT Prophylaxis: Lovenox
Code: Full
More than 30 minutes spent in discharge including
Final examination of the patient
Summarizing hospital stay
Instructions for continuing care to all relevant caregivers
Preparation of discharge records, prescriptions, and referral forms
Total time spent (in minutes):41
Anticipated Discharge: Today
Subjective/Interval History
-
Date of Service: January 21, 2024
tolerating diet, no nausea/vomiting, + BM
Objective Data
-
Labs:
Laboratory Results
01/21/24
08:04
WBC 16.0 H
Hgb 9.8 L
Hct 28.4 L
Plt Count 432 H
Sodium Pending
Potassium Pending
Chloride Pending
Carbon Dioxide Pending
BUN Pending
Creatinine Pending
Glucose Pending
Calcium Pending
Total Bilirubin Pending
AST Pending
ALT Pending
Alkaline Phosphatase Pending
Vital Signs:
Vital Signs
Temp Pulse Resp BP Pulse Ox
98.3 F 83 18 136/79 97
01/21/24 07:15 01/21/24 07:15 01/21/24 07:15 01/21/24 07:15 01/21/24 07:15
I&O
01/20/24 01/21/24 01/22/24
06:59 06:59 06:59
Intake Total 1200 / 1200 2940 / 2940
Balance 1200 / 1200 2940 / 2940
Physical Exam
-
General: No Apparent Distress
HEENT: Normocephalic and Atraumatic
Respiratory: Negative Wheezes
Cardiac: Regular Rhythm and S1/S2
GI: Soft and Nontender
Genito-urinary: No Costovertebral Tender
Musculoskeletal: No Edema
Neuro: AO x 3
Hematologic / Lymphatic: No Lymphadenopathy
Psych: Calm
Data Reviewed
-
Total Time Spent with Patient (in minutes): 42
Labs: Labs Reviewed by me
--- NOTE | 2024-01-21 09:25 | W.DS.TRANS ---
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
-
Discharge Instructions:
Discharge Diagnosis/Procedures post-ERCP pancreatitis
Diet Low Fat
Activity As tolerated
Bathing Restrictions None
Blood Work CMP next week - slip given
Instructions:
Stand-Alone Forms:
Changes to Home Medications: No
Discharge Medications:
DC Medications w/original date entered in [email or web address]
aspirin 81 mg tablet,delayed release 81 mg PO QPM Blood Clot Prevention/Tx 04/13/23
fenofibrate nanocrystallized 145 mg tablet (Tricor) 145 mg PO HS High Cholesterol 04/13/23
glucosamine sulf dipot chlr,msm,chond 550 mg-C 30 mg-edd 1 mg capsule (Glucosamine Chondroitin) 1 cap PO QPM Supplement 04/13/23
metformin 500 mg tablet,extended release 24 hr 500 mg PO BID Diabetes 04/13/23
rosuvastatin 10 mg tablet (Crestor) 10 mg PO QPM High Cholesterol 04/13/23
acetaminophen 500 mg tablet (Tylenol Extra Strength) 1,000 mg PO Q6HPRN PRN mild pain 01/19/24
latanoprost 0.005 % eye drops 1 drp RIGHT EYE HS Eye Condition 01/19/24
polyethylene glycol 3350 17 gram oral powder packet (Miralax) 17 g PO DAILYPRN PRN constipation 01/19/24
therapeutic multivitamin 1 tab PO DAILY Supplement 01/19/24
tramadol 50 mg tablet 25 mg (1/2 x 50 mg) PO Q6HPRN PRN moderate pain #30 tabs 01/21/24
Home Medication Changes
Pending Results: No
Total time spent discharging patient (in min): 41
[2024-01-21 09:33] LABS: ALT (SGPT) 61 U/L (0-50); AST (SGOT) 69 U/L (17-59); Albumin 2.6 g/dl (3.5-5.0); Alkaline Phosphatase 48 U/L (38-126); Blood Urea Nitrogen 15 mg/dl (9-20); Calcium 8.5 mg/dl (8.4-10.2); Carbon Dioxide 25 mmol/L (22-30); Chloride 103 mmol/L (98-107); Estimated Creatinine Clearance 80 ml/min; Glucose 180 mg/dl (70-99); Lipase 451 U/L (23-300); Potassium 4.1 mmol/L (3.5-5.1); Sodium 138 mmol/L (135-145); Total Bilirubin 0.8 mg/dl (0.2-1.3); Total Protein 5.2 g/dl (6.3-8.2); eGFR > 60.00
--- NOTE | 2024-01-21 10:19 | CM ---
MD entered order for discharge .
Spoke with pt . he said he was ready for discharge.
Cassandra will drive him home.
Offered Vn he declined need.
PLAN Home no needs
== END 2024-01-21 11:00 | disposition home or self-care (01) | DRG 440 ==
LOC: 4 EAST ACU 16:42
PROVIDERS: Nurse Practitioner Family; Physician Assistant; ADMITTING PHYSICIAN Hospitalist; ATTENDING PHYSICIAN Internal Medicine; CONSULT PHYSICIAN Student in an Organized Health Care Education/Training Program; EMERGENCY PHYSICIAN Emergency Medicine; FAMILY PHYSICIAN Family Medicine
DX: K85.80 Other acute pancreatitis without necrosis or infection (principal); E11.22 Type 2 diabetes mellitus with diabetic chronic kidney disease; N18.32 Chronic kidney disease, stage 3b; E78.00 Pure hypercholesterolemia, unspecified; H40.9 Unspecified glaucoma; K21.9 Gastro-esophageal reflux disease without esophagitis; N40.0 Benign prostatic hyperplasia without lower urinary tract symptoms; Z90.49 Acquired absence of other specified parts of digestive tract; Z87.891 Personal history of nicotine dependence; Z79.82 Long term (current) use of aspirin; Z79.84 Long term (current) use of oral hypoglycemic drugs
CPT/HCPCS: 36415; 74177; 80053; 81003; 82962; 83690; 85025; 85027; 87040; 96361; 96374; 99284; Q9967

== ENCOUNTER → 2024-01-26 06:42 | Outpatient (REF) | payer MEDICARE, OTHER, SELFPAY ==
[2024-01-26 09:28] LABS: ALT (SGPT) 91 U/L (0-50); AST (SGOT) 60 U/L (17-59); Albumin 3.2 g/dl (3.5-5.0); Alkaline Phosphatase 48 U/L (38-126); Blood Urea Nitrogen 32 mg/dl (9-20); Calcium 9.8 mg/dl (8.4-10.2); Carbon Dioxide 28 mmol/L (22-30); Chloride 102 mmol/L (98-107); Glucose 144 mg/dl (70-99); Potassium 4.6 mmol/L (3.5-5.1); Sodium 141 mmol/L (135-145); Total Bilirubin 0.4 mg/dl (0.2-1.3); Total Protein 6.4 g/dl (6.3-8.2); eGFR > 60.00
== END ==
LOC: HWLAB 06:42
PROVIDERS: ATTENDING PHYSICIAN Internal Medicine; FAMILY PHYSICIAN Family Medicine
DX: K86.1 Other chronic pancreatitis (principal)
CPT/HCPCS: 36415; 80053

== ENCOUNTER → 2024-02-25 13:16 | Outpatient (REF) | payer MEDICARE, OTHER, SELFPAY | LOC: RAD 13:16 | PROVIDERS: ATTENDING PHYSICIAN Otolaryngology; FAMILY PHYSICIAN Family Medicine | DX: R22.1 Localized swelling, mass and lump, neck (principal) | CPT/HCPCS: 70491; Q9967 ==

== ENCOUNTER → 2024-03-09 08:52 | Outpatient (REF) | payer MEDICARE, OTHER, SELFPAY ==
[2024-03-09 09:12] VITALS: BP 141/71; BP_SYST 85
[2024-03-09 09:55] VITALS: BP 138/70; BP_SYST 69
== END ==
LOC: RADI 08:52
PROVIDERS: ATTENDING PHYSICIAN Otolaryngology
DX: C73 Malignant neoplasm of thyroid gland (principal); C77.0 Secondary and unspecified malignant neoplasm of lymph nodes of head, face and neck
CPT/HCPCS: 88173; 88305; 10005; 20206; 76942; 88333; 88341; 88342

== ENCOUNTER → 2024-04-13 06:44 | Outpatient (REF) | payer MEDICARE, OTHER, SELFPAY ==
[2024-04-13 10:27] LABS: % Basophils 0.6 % (0-2); % Eosinophils 2.9 % (0-6); % Lymphocytes 39.3 % (20.5-51.1); % Monocytes 7.8 % (1.7-9.3); % Neutrophils 49.4 % (42.2-75.2); Absolute Eosinophils 0.2 10^3/uL (0-0.7); Absolute Monocytes 0.4 10^3/uL (0.1-0.6); Absolute Neutrophils 2.5 10^3/uL (1.4-6.5); Hematocrit 34.3 % (39.0-52.0); Hemoglobin 12.5 g/dL (13.0-18.0); Mean Corp Hgb Conc. 36.4 g/dL (33.0-37.0); Mean Corpuscular Hgb 34.2 pg (27.0-31.0); Nucleated Red Blood Cells % 0 % (-); Platelet Count 248 10^3/uL (130-400); Red Blood Cell Count 3.65 10^6/uL (4.70-6.10); Red Cell Dist. Width 16.3 % (11.5-14.5); White Blood Cell Count 5.1 10^3/uL (4.8-10.8)
[2024-04-13 11:13] LABS: ALT (SGPT) 22 U/L (0-50); AST (SGOT) 32 U/L (17-59); Albumin 4.4 g/dl (3.5-5.0); Alkaline Phosphatase 37 U/L (38-126); Blood Urea Nitrogen 27 mg/dl (9-20); Calcium 9.6 mg/dl (8.4-10.2); Carbon Dioxide 26 mmol/L (22-30); Chloride 105 mmol/L (98-107); Glucose 109 mg/dl (70-99); HDL Cholesterol 58 mg/dl; LDL Cholesterol, Calculated 84 mg/dl; Potassium 4.5 mmol/L (3.5-5.1); Sodium 139 mmol/L (135-145); Total Bilirubin 0.4 mg/dl (0.2-1.3); Total Cholesterol 161 mg/dl (50-199); Total Protein 6.7 g/dl (6.3-8.2); Triglyceride 96 mg/dl (10-149); Very Low Density Lipoprotein 19 mg/dl (0-30); eGFR > 60.00
[2024-04-13 11:35] LABS: TSH 1.63 uIU/ml (0.47-4.68)
[2024-04-13 11:44] LABS: Glycohemoglobin (HgbA1c) 6.3 % (4.0-5.6)
[2024-04-14 20:44] LABS: PSA Total 6.8 ng/mL (0.0-4.0)
== END ==
LOC: HWLAB 06:44
PROVIDERS: ATTENDING PHYSICIAN Surgery; FAMILY PHYSICIAN Family Medicine; REFERRING PHYSICIAN Nurse Practitioner
DX: R97.20 Elevated prostate specific antigen [PSA] (principal); K85.90 Acute pancreatitis without necrosis or infection, unspecified; N20.0 Calculus of kidney; N40.1 Benign prostatic hyperplasia with lower urinary tract symptoms; N28.1 Cyst of kidney, acquired; E11.9 Type 2 diabetes mellitus without complications; E78.2 Mixed hyperlipidemia
CPT/HCPCS: 36415; 80053; 80061; 83036; 84153; 84154; 84443; 85025

== ENCOUNTER → 2024-05-03 07:13 | Outpatient (REF) | payer MEDICARE, OTHER, SELFPAY | LOC: MRI 3T 07:13 | PROVIDERS: ATTENDING PHYSICIAN Nurse Practitioner; FAMILY PHYSICIAN Family Medicine | DX: K85.90 Acute pancreatitis without necrosis or infection, unspecified (principal) | CPT/HCPCS: 74183; A9575 ==

== ENCOUNTER → 2024-05-12 18:18 | Outpatient (REF) | payer MEDICARE, OTHER, SELFPAY | LOC: MRI 3T 18:18 | PROVIDERS: ATTENDING PHYSICIAN Surgery; FAMILY PHYSICIAN Family Medicine | DX: R97.20 Elevated prostate specific antigen [PSA] (principal) | CPT/HCPCS: 72197; A9575 ==

== ENCOUNTER → 2024-07-07 10:10 | Outpatient (REF) | payer MEDICARE, OTHER, SELFPAY | LOC: CLAB 10:10 | PROVIDERS: ATTENDING PHYSICIAN Surgery | DX: R97.20 Elevated prostate specific antigen [PSA] (principal) | CPT/HCPCS: 88305 ==

== ENCOUNTER → 2024-07-11 14:58 | Outpatient (REF) | payer MEDICARE, OTHER, SELFPAY | LOC: MRI 3T 14:58 | PROVIDERS: ATTENDING PHYSICIAN Student in an Organized Health Care Education/Training Program; FAMILY PHYSICIAN Family Medicine | DX: K86.9 Disease of pancreas, unspecified (principal); Z87.19 Personal history of other diseases of the digestive system | CPT/HCPCS: 74183; A9575 ==

== ENCOUNTER → 2024-07-13 07:15 | Outpatient (REF) | payer MEDICARE, OTHER, SELFPAY ==
[2024-07-13 10:26] LABS: Albumin 3.7 g/dl (3.5-5.0); Calcium 9.9 mg/dl (8.4-10.2)
[2024-07-13 10:56] LABS: TSH < 0.02 uIU/ml (0.47-4.68)
[2024-07-14 16:44] LABS: Thyroglobulin 28.8 ng/mL (1.3-31.8); Thyroglobulin Antibodies <1.5 IU/mL (0.0-4.0)
== END ==
LOC: HWLAB 07:15
PROVIDERS: ATTENDING PHYSICIAN Internal Medicine; FAMILY PHYSICIAN Family Medicine
DX: C73 Malignant neoplasm of thyroid gland (principal); E03.9 Hypothyroidism, unspecified; E83.51 Hypocalcemia
CPT/HCPCS: 36415; 82040; 82310; 84432; 84443; 86800

== ENCOUNTER → 2024-09-12 06:29 | Outpatient (REF) | payer MEDICARE, OTHER, SELFPAY ==
[2024-09-12 09:43] LABS: Albumin 4.2 g/dl (3.5-5.0); Calcium 9.7 mg/dl (8.4-10.2)
[2024-09-13 22:32] LABS: Thyroglobulin 15.2 ng/mL (1.3-31.8); Thyroglobulin Antibodies <1.5 IU/mL (0.0-4.0)
== END ==
LOC: HWLAB 06:29
PROVIDERS: ATTENDING PHYSICIAN Internal Medicine; FAMILY PHYSICIAN Family Medicine
DX: C73 Malignant neoplasm of thyroid gland (principal); E03.9 Hypothyroidism, unspecified; E83.51 Hypocalcemia
CPT/HCPCS: 36415; 82040; 82310; 84432; 84439; 84443; 86800

== ENCOUNTER → 2024-11-06 09:14 | Outpatient (REF) | payer MEDICARE, OTHER, SELFPAY | LOC: MRI 3T 09:14 | PROVIDERS: ATTENDING PHYSICIAN Student in an Organized Health Care Education/Training Program; FAMILY PHYSICIAN Family Medicine | DX: Z87.19 Personal history of other diseases of the digestive system (principal); K86.9 Disease of pancreas, unspecified | CPT/HCPCS: 74183; A9575 ==

== ENCOUNTER → 2024-11-08 08:02 | Outpatient (REF) | payer MEDICARE, OTHER, SELFPAY ==
[2024-11-08 10:39] LABS: Albumin 4.3 g/dl (3.5-5.0); Calcium 9.2 mg/dl (8.4-10.2)
[2024-11-09 17:57] LABS: Thyroglobulin 5.1 ng/mL (1.3-31.8); Thyroglobulin Antibodies <1.5 IU/mL (0.0-4.0)
== END ==
LOC: HWLAB 08:02
PROVIDERS: ATTENDING PHYSICIAN Internal Medicine; FAMILY PHYSICIAN Family Medicine
DX: C73 Malignant neoplasm of thyroid gland (principal); E03.9 Hypothyroidism, unspecified
CPT/HCPCS: 36415; 82040; 82310; 84432; 84439; 84443; 86800

== ENCOUNTER → 2024-11-15 12:22 | Outpatient (REF) | payer MEDICARE, OTHER, SELFPAY | LOC: HWRAD 12:22 | PROVIDERS: ATTENDING PHYSICIAN Internal Medicine; FAMILY PHYSICIAN Family Medicine | DX: C73 Malignant neoplasm of thyroid gland (principal) | CPT/HCPCS: 76536 ==

== ENCOUNTER → 2025-02-13 07:19 | Outpatient (REF) | payer MEDICARE, OTHER, SELFPAY | LOC: REG 07:19 | PROVIDERS: ATTENDING PHYSICIAN Surgery; FAMILY PHYSICIAN Family Medicine | DX: R97.20 Elevated prostate specific antigen [PSA] (principal) | CPT/HCPCS: 36415; 84153; 84154 ==